=== PATIENT | female | born 1980 | race Caucasian/White ===

== ENCOUNTER 2018-01-14 22:39 | Emergency (ER) | payer OTHER ==
[~2018-01-14] VITALS: Ht 162.6 cm; Wt 64.9 kg
[2018-01-14] MEDS ORDERED: MULTIVITAMINS1 EAC3 PO (22:51)
[2018-01-14] MEDS ORDERED: LEXAPRO10 MG PO (22:51)
--- NOTE | 2018-01-15 20:46 | EKG ---
[facility] [address] [place], [place] [address] Signed Normal sinus rhythm Nonspecific ST abnormality Abnormal ECG No previous ECGs available Confirmed by SUDHIR ROA DO ([id number]) on 01/15/2018 8:46:47 PM Electronically Signed By: SUDHIR ROA DO 01/15/18 2046 PATIENT NAME: LISHA ESCALONA Electrocardiogram DATE OF : 80 PHYSICIAN: SUDHIR ROA DO REPORT #: [id number] REPORT IS CONFIDENTIAL AND NOT TO BE RELEASED WITHOUT AUTHORIZATION
== END 2018-01-15 00:41 | disposition home or self-care (01) ==
LOC: ED 22:39
DX: R07.9 Chest pain, unspecified (principal); F17.200 Nicotine dependence, unspecified, uncomplicated; Z88.0 Allergy status to penicillin; Z79.899 Other long term (current) 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
CPT/HCPCS: 71045; 80053; 84484; 85025; 93005; 93010; 99285

== ENCOUNTER 2018-05-03 14:37 | Emergency (ER) | payer OTHER ==
[~2018-05-03] VITALS: Ht 162.6 cm; Wt 64.9 kg
[~2018-05-03 14:37] MED LIST: LEXAPRO10 MG PO; MULTIVITAMINS1 EAC3 PO
[2018-05-03] MEDS ORDERED: NEURONTIN300 MG PO (14:56)
[2018-05-03] MEDS ORDERED: BACTRIM DS TAB1 EACH PO (17:44)
== END 2018-05-03 17:49 | disposition home or self-care (01) ==
LOC: ED 14:37
DX: F10.20 Alcohol dependence, uncomplicated (principal); N39.0 Urinary tract infection, site not specified; F41.9 Anxiety disorder, unspecified; F43.10 Post-traumatic stress disorder, unspecified; F32.9 Major depressive disorder, single episode, unspecified; F17.200 Nicotine dependence, unspecified, uncomplicated; Z88.0 Allergy status to penicillin; Z79.899 Other long term (current) 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
CPT/HCPCS: 36415; 80053; 80176; 81001; 82550; 84443; 84703; 85025; 87077; 87088; 87186; 99283; G0480

== ENCOUNTER 2018-05-04 19:24 | Emergency (ER) | payer OTHER ==
[~2018-05-04] VITALS: Ht 162.6 cm; Wt 62.6 kg
[~2018-05-04 19:24] MED LIST changes: +BACTRIM DS TAB1 EACH PO; +NEURONTIN300 MG PO
--- OUTSIDE RECORDS SUMMARY | 2018-05-04 19:28 | XMS ---
PreManage Notification: LISHA ESCALONA Security Licensed Clinical Psychologist Events No recent Security Events currently on file CRITERIA MET - [facility] - Visits in 30 Days CARE PROVIDERS FABRIZIO MENDY [facility] PHONE: Unknown FABRIZIO [facility] PHONE: Unknown Anna has no Care Guidelines for this patient. Laurent VISIT COUNT (12 MO.) [address] [place] [address] TOTAL 3 NOTE: Visits indicate total known visits. 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
== END 2018-05-04 20:33 | disposition home or self-care (01) ==
LOC: ED 19:24
DX: F10.229 Alcohol dependence with intoxication, unspecified (principal); F41.9 Anxiety disorder, unspecified; F43.10 Post-traumatic stress disorder, unspecified; F32.9 Major depressive disorder, single episode, unspecified; G62.9 Polyneuropathy, unspecified; F17.200 Nicotine dependence, unspecified, uncomplicated; Z88.0 Allergy status to penicillin; Z79.899 Other long term (current) 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
CPT/HCPCS: 99284

== ENCOUNTER 2018-07-05 04:08 | Emergency (ER) | payer OTHER ==
[~2018-07-05] VITALS: Ht 162.6 cm; Wt 66.7 kg
--- OUTSIDE RECORDS SUMMARY | 2018-07-05 04:10 | XMS ---
PreManage Notification: LISHA ESCALONA Security Software Consultant Events No recent Security Events currently on file CRITERIA MET - Group Notification - [facility] - Has Care Guidelines CARE PROVIDERS [facility] PHONE: Unknown Anna has no Care Guidelines for this patient. Care History Medical/Surgical 05/06/2018 [facility] - CHW CALLED PATIENT- PATIENT VOICEMAIL BOX IS FULL CAN\T\#39;T LEAVE A MESSAGE FOR A CALL BACK- - IF PATIENT IS WILLING TO ACCEPT HELP/DETOX- PLEASE CONTACT RICKEY Bhatt\T\amp; D SERVICES [phone] AND REQUEST AN ASSESSMENT IN THE ED. BEST CONTACT IS ESTHER GIMENEZ E.D. VISIT COUNT (12 MO.) 4 [facility] TOTAL 4 NOTE: Visits indicate total known visits. ED/UCC VISIT TRACKING (12 MO.) 07/05/2018 04:09 [facility] OR TYPE: Emergency COMPLAINT: - MEDICAL CLEARANCE 05/04/2018 19:24 [facility] OR TYPE: Emergency COMPLAINT: - INTOXICATION DIAGNOSES: - Allergy status to penicillin - Alcohol dependence with intoxication, unspecified - Post-traumatic stress disorder, unspecified - Anxiety disorder, unspecified - Other watermaster (current) 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 - Polyneuropathy, unspecified - Alcohol abuse with intoxication, unspecified - Nicotine dependence, unspecified, uncomplicated - Major depressive disorder, single episode, unspecified 05/03/2018 14:37 [facility] OR TYPE: Emergency COMPLAINT: - MEDICAL CLEARANCE DIAGNOSES: - Post-traumatic stress disorder, unspecified - Urinary tract infection, site not specified - Allergy status to penicillin - Anxiety disorder, unspecified - Major depressive disorder, single episode, unspecified - Alcohol dependence, uncomplicated - Nicotine dependence, unspecified, uncomplicated - Other watermaster (current) 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 01/14/2018 22:40 [facility] OR TYPE: Emergency COMPLAINT: - CHEST PAIN DIAGNOSES: - Nicotine dependence, unspecified, uncomplicated - Chest pain, unspecified - Allergy status to penicillin - Other alf (current) 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 INPATIENT VISIT TRACKING (12 MO.) No inpatient visits to display in this time frame [id number]
[2018-07-05] MEDS ORDERED: PROPRANOLOL HCL20 MG PO (04:20)
[2018-07-05] MEDS ORDERED: LEXAPRO20 MG PO (04:20)
[2018-07-08] MEDS ORDERED: MULTIVITAMINS1 EAC8 PO (10:23)
[2018-07-08] MEDS ORDERED: POTASSIUM99 M1 PO (10:23)
[2018-07-08] MEDS ORDERED: VITAMIN B COMP1 EAC1 PO (10:24)
== END 2018-07-05 10:52 | disposition home or self-care (01) ==
LOC: ED 04:08
DX: R45.851 Suicidal ideations (principal); F10.129 Alcohol abuse with intoxication, unspecified; Y90.8 Blood alcohol level of 240 mg/100 ml or more; F41.9 Anxiety disorder, unspecified; F43.10 Post-traumatic stress disorder, unspecified; G62.9 Polyneuropathy, unspecified; F17.200 Nicotine dependence, unspecified, uncomplicated; Z88.0 Allergy status to penicillin; Z79.899 Other long term (current) 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
CPT/HCPCS: 36415; 80053; 80176; 81001; 84443; 84703; 85025; 99285; G0480

== ENCOUNTER 2018-07-11 07:05 | Day surgery (SDC) | payer OTHER ==
[~2018-07-11] VITALS: Ht 162.6 cm; Wt 65.8 kg
--- NOTE | ~2018-07-11 | OR ---
[facility] [address] [place], [place] [address] Draft DATE OF OPERATION: 07/11/2018 SURGEON: Mary Vasquez DO PREOPERATIVE DIAGNOSES: 1. Left adnexal mass. 2. Alcoholism. POSTOPERATIVE DIAGNOSES: 1. Left adnexal mass. 2. Severe pelvic adhesive disease. 3. Likely stage IV endometriosis with significant endometriosis noted. 4. Alcoholism. PROCEDURES PERFORMED: 1. Diagnostic laparoscopy. 2. Pelvic washings. CHIEF UNIT FORESTER: Kong Tracey MD ANESTHESIA: General. ESTIMATED BLOOD LOSS: 10 mL. SPECIMEN: Fluid washings. FINDINGS: Normal external genitalia, cervix, and vagina. On laparoscopy, normal-appearing omentum, bilateral diaphragm, liver, and appendix. No peritoneal studding, omental caking, or other abnormalities associated with malignancy noted. There is no ascites. There is, however, extensive endometriosis. The cul-de-sac was completely obliterated with the rectum scarred high up onto the posterior uterus. The bilateral tubes and ovaries are also scarred to the cul-de-sac, uterus, and sigmoid. Due to adhesions, I was unable to completely evaluate the left tube and ovary. However, the surface is smooth and grossly benign appearing. While I suspect findings on laparoscopy and imaging are most likely secondary to stage IV endometriosis, I cannot completely exclude PATIENT NAME: LISHA ESCALONA OPERATIVE REPORT DATE OF : 80 REPORT #: [id number] PHYSICIAN: MARY VASQUEZ DO PCP: ANNY JEROME MD REPORT IS CONFIDENTIAL AND NOT TO BE RELEASED WITHOUT AUTHORIZATION [facility] [address] [place], [place] [address] Draft malignancy. She will need definitive surgical treatment with Keying Machine Operator Oncology. COMPLICATIONS: None. INDICATIONS: The patent is an unfortunate 38-year-old, G1, P1, white female, who presented to her primary care for secondary amenorrhea. She had not had a period nearly two years since struggling with anxiety, PTSD, and alcoholism. As part of the workup, an ultrasound was performed that demonstrated a normal uterus and endometrial stripe. The right ovary appeared normal. However, the left ovary had an incidentally noted complex mass with the ovary 5.3 x 3.3 x 1.5 cm and within the ovary, a 4.5 x 3.9 x 3.1 cm complex adnexal mass with at least three mural nodules along the cyst wall with vascularity noted. These mural nodules are up to 14 mm in size. The patient denies bloating, early satiety, family history of breast or ovarian cancer. She denies a history of dysmenorrhea or dyspareunia. She does have significant alcoholism, which was kindly helped manage by anesthesia preoperatively. The patient was consented for laparoscopic LSO with pelvic washings after careful discussion of risks and benefits for surgical treatment of complex adnexal masses. She had declined referral to Keying Machine Operator Oncology or screening with risks stratification with a test like ova one. DESCRIPTION OF PROCEDURE: The patient was taken the operating room where a time-out was performed to confirm correct patient and correct procedure. General anesthesia was adequately established. Patient was prepped and draped in dorsal lithotomy position with her feet in Yellofin stirrups. ICPs were on running. Patient received Ancef 2 g preoperatively per skip protocol and also received heparin preoperatively for a family history of perioperative pulmonary embolism. A weighted speculum was placed in the vagina and the anterior lip of the cervix was grasped with a single-tooth tenaculum. Patient incidentally noted to have menstrual bleeding at this time. The cervix was gently dilated using Hegar dilators and a DoubleVerifylNetcontinuum uterine manipulator was placed. A Manzano catheter was inserted and the surgeon's gloves were changed and attention was turned to the abdomen. The base of the umbilicus was infiltrated with 0.25% Marcaine with epinephrine and an approximately 5 cm infraumbilical curvilinear incision was made. The fascia was grasped, elevated, and incised sharply with Metzenbaum scissors. The fascial edges were tagged with #0 Vicryl and the peritoneum was entered bluntly. A Akua port was then placed and pneumoperitoneum was easily established. A 5 mm assist ports were placed in the right lower quadrant and left lower quadrant under direct visualization and survey of the abdomen and pelvis was performed. Detailed examination of bilateral diaphragm, liver capsule, omentum, and appendix were performed that showed no abnormalities, peritoneal studding, or other concern for malignancy. The pelvis was evaluated and the cul-de-sac appeared to be completely obliterated. Decision was made to perform pelvic washings at PATIENT NAME: LISHA ESCALONA OPERATIVE REPORT DATE OF : 80 REPORT #: [id number] PHYSICIAN: MARY VASQUEZ DO PCP: ANNY JEROME MD REPORT IS CONFIDENTIAL AND NOT TO BE RELEASED WITHOUT AUTHORIZATION [address] [address] Draft this time. The abdomen and pelvis were irrigated with saline and the patient was placed into reverse Trendelenburg position, at which time the washings were removed approximately 100 mL and sent for further evaluation. The Trendelenburg position was then reestablished and further evaluation of the pelvis was performed. The left ovary and tube are adherent posteriorly to the cul-de-sac and the uterus and the sigmoid. The sigmoid is densely adherent to the posterior wall of the uterus as well as the bilateral adnexa. The right ovary again is scarred into the cul-de-sac. There were dense endometrial lesions throughout the pelvis at the right round ligament, fallopian tube, ovary, etc. After careful evaluation, it was determined that the left adnexum would not be able to be excised without risking either spillage or conversion to full hysterectomy. Again with the appearance of stage IV endometriosis and complex adnexal mass, we felt that the patient would be best served by definitive surgical treatment by advanced laparoscopy with a Keying Machine Operator Oncologist. The pneumoperitoneum was then reduced. The trocars were removed. Fascia at the umbilicus was repaired with #0 Vicryl in a running nonlocked manner and the trocar sites repaired with 4-0 Vicryl. The Hulka was removed. The cervix was found to be hemostatic and the patient was taken to PACU in good and stable condition. Sponge, needle, and instrument counts were correct x2 at the end the procedure. Dr. Tracey was present and participated in all portions of the procedure. DO MAYCOL Heller/NERISSA /[id number] Copies: ~ PATIENT NAME: LISHA ESCALONA OPERATIVE REPORT DATE OF : 80 REPORT #: [id number] PHYSICIAN: MARY VASQUEZ DO PCP: ANNY JEROME MD REPORT IS CONFIDENTIAL AND NOT TO BE RELEASED WITHOUT AUTHORIZATION
[~2018-07-11 07:05] MED LIST changes: +LEXAPRO20 MG PO; +MULTIVITAMINS1 EAC8 PO; +POTASSIUM99 M1 PO; +PROPRANOLOL HCL20 MG PO; +VITAMIN B COMP1 EAC1 PO
--- NOTE | 2018-07-11 10:43 | NUR ---
07/11/18 1043 María Elena Jin 1029-PATIENT ARRIVED TO PACU ON 10L MASK ORAL AIRWAY IN PLACE. JAW IS TIGHT. SR. 3 LAP SITES TO ABDOMEN SMALL AMT OF SHADOWING. DELMY PAD IN PLACE. PATIENT OPENS EYES TO VERBAL STIMULI. EYELIDS APPEAR A LITTLE SWOLLEN. PATIENT DROOLING FROM SIDE OF MOUTH SUCTIONED SMALL AMT OF BLOODY SECRETIONS. 1037-PATIENT OPENING EYES LIFTING LEFT HAND ORAL AIRWAY REMOVED. ENCOURAGED COUGHING AND DEEP BREATHING. PATIENT ABLE TO COUGH. SMALL AMT OF BLEEDING ON TONGUE. PATIENT DOZES BACK TO SLEEP. 0N 10L MASK. 1042-PATIENT SLEEPING AROUSES TO VERBAL STIMULI WHEN ASKED IF COMFORTABLE SAYS "YES" DOZES BACK TO SLEEP. 6L MASK 100%
--- NOTE | 2018-07-11 11:25 | NUR ---
PT RETURNS TO DS ROOM 3 FROM PACU ON 2 L VIA NC. SATS 100%. SURGICAL DRESSING, BANDAID ON RIGHT LAP SITE SATURATED. OTHERS C/D/I. DELMY PAD IN PLACE WITH SMALL AMOUNT OF DRAINAGE. VSS. PT REQUESTING TO USE BATHROOM. PT SALINE LOCKED AND AMBULATES TO RESTROOM. PT VOIDS 100 ML BLOOD TINGED URINE. GOLF BALL SIZED CLOT NOTED IN HAT. PT RETURNS TO BED. FRESH WATER AND CRACKERS PROVIDED. PT DENIES NAUSEA/PAIN. CALL LIGHT WITHIN REACH
--- NOTE | 2018-07-11 12:09 | NUR ---
telephone call to dr. schofield about clot and pt status. no new orders given. to see pt prior to discharge
--- NOTE | 2018-07-11 12:13 | NUR ---
DR. ESQUIVEL TO SEE PT. PT OKAY TO DC WHEN READY.
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
== END 2018-07-11 12:40 | disposition home or self-care (01) ==
LOC: OPS 07:05 → DS 07:05 → OPS 09:30 → EDSTATUS 11:30 → OPS 11:30
PROVIDERS: Obstetrics & Gynecology
PROC: 0WJJ4ZZ Inspection of Pelvic Cavity, Percutaneous Endoscopic Approach (ICD-10-PCS; principal; 2018-07-11 09:30)
DX: N83.8 Other noninflammatory disorders of ovary, fallopian tube and broad ligament (principal); N73.6 Female pelvic peritoneal adhesions (postinfective); F10.20 Alcohol dependence, uncomplicated; F43.10 Post-traumatic stress disorder, unspecified; F32.9 Major depressive disorder, single episode, unspecified; F41.9 Anxiety disorder, unspecified; F17.210 Nicotine dependence, cigarettes, uncomplicated; Z88.0 Allergy status to penicillin; Z79.899 Other long term (current) 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
CPT/HCPCS: 00840; J0330; J0690; J1100; J1644; J1885; J2250; J2405; J2704; J2765; J3010; J7120

== ENCOUNTER 2018-08-10 15:56 | Emergency (ER) | payer OTHER ==
[~2018-08-10] VITALS: Ht 162.6 cm; Wt 69.4 kg
--- OUTSIDE RECORDS SUMMARY | 2018-08-10 16:00 | XMS ---
PreManage Notification: LISHA ESCALONA Security Circulation Clerk Events No recent Security Events currently on file CRITERIA MET - [facility] - Has Care Guidelines CARE PROVIDERS ANNY JEROME Student in an Organized Health Care 07/08/2018-Current Education/Training Program PHONE: [phone] [facility] Primary Care [facility] PHONE: Unknown [facility] PHONE: Unknown Anna has no Care Guidelines for this patient. Care History Medical/Surgical 07/08/2018 [facility] - Patient is currently established with [facility]. If patient is seen in the ED during business hours. Please contact CHWs at [facility]. Care Recommendation: This patient has had 5 or more Emergency Department visits in the last 12 months.\T\nbsp; Patient requires education on the scope and purpose of the ED as an acute care provider not a Primary Care Provider and should not be utilized for chronic conditions.\T\nbsp; These are guidelines and the provider should exercise clinical judgment when providing care. 05/06/2018 [facility] - [facility]W CALLED PATIENT- PATIENT VOICEMAIL BOX IS FULL CAN\T\#39;T LEAVE A MESSAGE FOR A CALL BACK- - IF PATIENT IS WILLING TO ACCEPT HELP/DETOX- PLEASE CONTACT RICKEY Bhatt\T\amp; D SERVICES [phone] AND REQUEST AN ASSESSMENT IN THE ED. BEST CONTACT IS ESTHER GIMENEZ E.D. VISIT COUNT (12 MO.) 5 [facility]. TOTAL 5 NOTE: Visits indicate total known visits. ED/UCC VISIT TRACKING (12 MO.) 08/10/2018 15:57 [facility] Rowan OR TYPE: Emergency COMPLAINT: - SUICIDAL THOUGHTS 07/05/2018 04:09 [facility] Rowan OR TYPE: Emergency COMPLAINT: - MEDICAL CLEARANCE DIAGNOSES: - Allergy status to penicillin - Blood alcohol level of 240 mg/100 ml or more - Suicidal ideations - Nicotine dependence, unspecified, uncomplicated - Post-traumatic stress disorder, unspecified - Other penitentiary (current) 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 - Alcohol abuse with intoxication, unspecified - Polyneuropathy, unspecified - Anxiety disorder, unspecified 05/04/2018 19:24 [facility] Rowan OR TYPE: Emergency COMPLAINT: - INTOXICATION DIAGNOSES: - Allergy status to penicillin - Alcohol dependence with intoxication, unspecified - Post-traumatic stress disorder, unspecified - Anxiety disorder, unspecified - Other penitentiary (current) 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 - Polyneuropathy, unspecified - [...] - Nicotine dependence, unspecified, uncomplicated - Other remote computer terminal operator (current) 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 01/14/2018 22:40 [facility] Rowan OR TYPE: Emergency COMPLAINT: - CHEST PAIN DIAGNOSES: - Nicotine dependence, unspecified, uncomplicated - Chest pain, unspecified - Allergy status to penicillin - Other remote computer terminal operator (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
[2018-08-10] MEDS ORDERED: FISH OIL 1,0001 EAC2 NG (16:17)
[2018-08-10] MEDS ORDERED: CHLORDIAZEPOXID25 MG PO (19:33)
== END 2018-08-10 19:49 | disposition home or self-care (01) ==
LOC: ED 15:56
DX: F32.9 Major depressive disorder, single episode, unspecified (principal); F10.20 Alcohol dependence, uncomplicated; Y90.8 Blood alcohol level of 240 mg/100 ml or more; F41.9 Anxiety disorder, unspecified; F43.10 Post-traumatic stress disorder, unspecified; F17.200 Nicotine dependence, unspecified, uncomplicated; Z88.0 Allergy status to penicillin; Z79.899 Other long term (current) 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
CPT/HCPCS: 80053; 80176; 81001; 84443; 84703; 85025; 96374; 96375; 99284-25; G0480; J2405; J3411; J7030

== ENCOUNTER 2018-08-25 13:19 | Emergency (ER) | payer OTHER ==
[~2018-08-25] VITALS: Ht 162.6 cm; Wt 69.4 kg
[~2018-08-25 13:19] MED LIST changes: +CHLORDIAZEPOXID25 MG PO; +FISH OIL 1,0001 EAC2 NG
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
== END 2018-08-25 16:32 | disposition home or self-care (01) ==
LOC: ED 13:19
DX: S00.83XA Contusion of other part of head, initial encounter (principal); F10.129 Alcohol abuse with intoxication, unspecified; F32.9 Major depressive disorder, single episode, unspecified; F41.9 Anxiety disorder, unspecified; F43.10 Post-traumatic stress disorder, unspecified; G62.9 Polyneuropathy, unspecified; F17.200 Nicotine dependence, unspecified, uncomplicated; Z88.0 Allergy status to penicillin; Z79.899 Other long term (current) 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; Y04.0XXA Assault by unarmed brawl or fight, initial encounter
CPT/HCPCS: 70450; 72125; 80053; 81001; 84703; 85025; 96365; 96366; 99284-25; G0480; J3411; J7030

== ENCOUNTER 2018-08-28 15:33 | Emergency (ER) | payer OTHER ==
[~2018-08-28] VITALS: Ht 162.6 cm; Wt 69.4 kg
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
== END 2018-08-29 12:16 | disposition home or self-care (01) ==
LOC: ED 15:33
DX: F10.129 Alcohol abuse with intoxication, unspecified (principal); Y90.8 Blood alcohol level of 240 mg/100 ml or more; R45.851 Suicidal ideations; F41.9 Anxiety disorder, unspecified; F43.10 Post-traumatic stress disorder, unspecified; F32.9 Major depressive disorder, single episode, unspecified; F17.200 Nicotine dependence, unspecified, uncomplicated; Z88.0 Allergy status to penicillin; Z79.899 Other long term (current) 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
CPT/HCPCS: 36415; 80053; 80176; 81001; 84443; 84703; 85025; 99284; G0480

== ENCOUNTER 2018-09-23 09:25 | Inpatient (IN) | payer OTHER ==
[~2018-09-23] VITALS: Ht 162.6 cm; Wt 66.8 kg
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
[2018-09-23] MEDS ORDERED: WELLBUTRIN XL300 MG PO (09:38)
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
--- NOTE | 2018-09-23 14:29 | NUR ---
PT CONTIOUES TO BE SLEEPING AT THIS TIME.
--- NOTE | 2018-09-23 15:13 | NUR ---
PT AWAKEN WHEN SPOKEN TOO, PT ABLE TO TAKE PO MEDS AT THIS TIME. IV LOPRESSOR HELD DUE TO OUT OF BP RANGE. PT BACK TO SLEEP BEFORE WRITE FINISHED NOTE.
--- NOTE | 2018-09-23 15:50 | NUR ---
LAB HERE TO OBTAIN SAMPLE AT THIS TIME.
--- NOTE | 2018-09-23 16:26 | NUR ---
PT IS MORE ALERT AT THIS TIME. "I DO NT WANT ANY MORE PHENERGAN, WHY WOULD YOU WNAT THIS DRUG IF ALL YOU DO IS SLEEP" "I JUST CANT STAY AWAKE". PT GIVEN SOME BROTH TO TRY AND HAS ICE WATER AT THE BEDSIDE. PT DENIES THE NEED TO VOID AT THIS TIME. PT HAS CELL PHONE AND HER GLASSES ARE AT THE BEDSIDE.
--- NOTE | 2018-09-23 16:44 | NUR ---
PT CURRENTLY SITTING UP IN THE BED WATCHING TV AND TALKING ON HER CELL PHONE AT TIMES. PT WAS UP TO THE BEDSIDE COMMODE AND VOIDED AND THEN BACK TO BED. PT HAS SOME NOTICABLE TREMORS IN HANDS,LEGS, AND BODY. PT IS MORE COOPERATIVE WITH HOUSPITAL ROUTINE AT THIS TIME. PT IS CURRENTLY DRINKING SOME BROTH.
--- NOTE | 2018-09-23 16:58 | NUR ---
PT ASKED FOR ATIVAN AT THIS TIME. 1MG PO GIVEN. "I NEED A BEER OR A ATIVAN PLEASE." PT CIWA SCORE AT 16:00 WAS 3. BUT PT IS AWAKE AND WATCHING TV NOW. WILL CONTIOUE TO MONITOR. PT WAS ALSO GIVEN SOME CLEAR LIQUIDS FOR DINNER.
--- NOTE | 2018-09-23 17:24 | NUR ---
DR MARTIN NOTIFIED OF LAB VALUES AT THIS TIME. ESR 44, NA 145. NO NEW ORDERS AT THIS TIME.
--- NOTE | 2018-09-23 18:57 | NUR ---
PT REQUEST TO HAVE HER DIET INCREASED AT THIS TIME. DR MARTIN NOTIFIED AT THIS TIME. DR MARTIN WILL COME AND TALK WITH PT AT THIS TIME.
--- NOTE | 2018-09-23 19:17 | NUR ---
PT GIVEN MORE JELLO AND BROTH AT THIS TIME. PT IS COOPERATIVE WITH HOSPITAL ROUTINE AT THIS TIME.
--- NOTE | 2018-09-23 20:52 | NUR ---
PT OCC TALKS IN SLEEP, STATES THIS IS NORMAL FOR HER. C/O LOWER ABD PAIN 10/07 AND NOTED THAT WAS FREQ MOVING LEGS WHICH PT STATES SHE IS DOING DUE TO PAIN. WAS GIVEN 0.5MG DILAUDID IV AT 1999, PT STATES THIS WORKED WELL FOR HER AND HAS BEEN SLEEPING OFF AND ON SINCE. STATES TREMORS ARE NORMAL FOR HER AND THAT THEY RUN IN THE FAMILY. PT IS VERY BAY ABOUT POTENTIAL FOR DELERIUM TREMONS AND WILL ASK FOR ATIVAN IF NEEDED. PT IS CONCERNED ABOUT CONT HER WELLBUTRIN AND LEXEPRO, WHICH SHE NORMALLY TAKES AT NIGHT. DR MARTIN CALLED ABOUT THIS. PT UP TO BSC TO VOID, STATES SHE FEELS WOBBLY BUT OTHERWISE THOMPSON WELL. CONT TO TAKE JELLO AND WATER.
--- NOTE | 2018-09-23 21:16 | NUR ---
PT AWAKENED FOR MEDS. REQUESTING ATIVAN STARTING TO FEEL SHAKY, GIVEN 1MG PO.
--- NOTE | 2018-09-23 22:47 | NUR ---
AWAKENED FOR PROPRANALOL, GIVEN LATE HAD ALREADY GIVEN LOPRESSOR IV PRIOR TO IT BEING ORDERED. PT CONT TO TALK IN SLEEP.
--- NOTE | 2018-09-23 23:45 | NUR ---
AWAKENED FOR ASSESSMENT STATES ABD PAIN IS TOLERABLE AT THIS TIME. HAS BEEN SLEEPING OFF AND ON. STATES FEELS GASSY.
--- NOTE | 2018-09-24 01:12 | NUR ---
IN TO HELP PT TO BSC AND BACK TO BED. EXTREMELY SHAKY AND REQUESTS ATIVAN. ALSO APPEARS TO BE HALLUCINATING- PT STATES "DOES HE HAVE TO BE IN HERE?, THAT NURSE SPENCER IN THE CORNER, DOES HE HAVE TO BE IN HERE?". REORIENTED, EXPLAINED THAT THERE IS NO OTHER PERSON IN THE ROOM. PT STATES "IM NOT OKAY RIGHT NOW". 1MG PO ATIVAN GIVEN. PT GIVEN FRESH ICE WATER, DENIES FURTHER NEEDS.
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
--- NOTE | 2018-09-24 04:20 | NUR ---
DR MARTIN CALLED RE PT CONT RESTLESSNESS AND NOW PICKING AT COVERS ET. WILL GIVEM 1MG ATIVAN IV.
--- NOTE | 2018-09-24 05:01 | NUR ---
RESTING BETTER SINCE IV ATIVAN WAS GIVEN.
--- NOTE | 2018-09-24 06:10 | NUR ---
LAB DRAWN, PT JUMPED SLIGHTLY THEN BACK TO SLEEP.
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
--- NOTE | 2018-09-24 09:56 | NUR ---
PATIENT GIVEN SECOND DOSE OF GASTROGRAFIN AT 0935. PATIENT TOLERATED THIS WELL. PT ALSO GIVEN LIBRIUM 50 MG AT THIS TIME FOR HER ETOH W/D SYMPTOMS. HR IN THE 80s CURRENTLY.
--- NOTE | 2018-09-24 10:53 | NUR ---
PATIENT TAKEN DOWN TO CT VIA WHEELCHAIR AND CT ABDOMEN PERFORMED. PT TOLERATED THIS WELL. PT ABLE TO AMBULATE INTO WHEELCHAIR, AND INTO BATHROOM WHEN SHE ARRIVES BACK TO ROOM. PT NOW ASKING FOR JELLO. PT STATES HER DEEP, DULL ABDOMINAL PAIN IS A 3 OUT OF 10. CONTINUE TO MONITOR.
--- NOTE | 2018-09-24 11:02 | NUR ---
PATIENT WONDERING ABOUT HER CELL PHONE AT THIS TIME. NOTED THAT PATIENT HAS SOME VALUABLES LOCKED IN THE SAFE. DR. MARTIN UPDATED ON HOW PATIENT IS DOING WELL HER CT BEING DONE. WAITING UNTIL RESULTS TO ALLOW PATIENT TO HAVE MORE FOOD.
--- NOTE | 2018-09-24 11:15 | NUR ---
PATIENT'S CELL PHONE WAS FOUND IN HER ROOM, UNDER HER BED.
--- NOTE | 2018-09-24 12:30 | NUR ---
AFTER CT RESULTS WERE AVAILABLE, DR. MARTIN NOTIFIED AND UPDATED. PT ALLOWED TO ADVANCE DIET AND SEE HOW SHE TOLERATES THIS. IF PATIENT TOLERATES WELL, THEN SHE WILL POTENTIALLY BE D/C HOME. PATIENT IS NOT WANTING TO DETOX FROM ETOH AT THIS TIME. PATIENT IS FULLY PLANNING ON GOING HOME AND IMMEDIATELY GOING BACK TO DRINKING. DR. MARTIN MADE AWARE OF THIS AND PLANS ON COMING BACK TO SEE PATIENT.
--- NOTE | 2018-09-24 13:00 | NUR ---
STOOL SAMPLE SENT TO LAB. PT NOTED TO HAVE LIQUID BROWN DIARRHEA.
--- NOTE | 2018-09-24 14:32 | NUR ---
PATIENT TO BE D/C HOME. PATIENT GIVEN DISCHARGE INSTRUCTIONS AND IS GOING TO FOLLOW UP WITH DR. ESQUIVEL ON SUNDAY. PATIENT DRANK HER BEER SHE WAS ALLOWED TO HAVE WITH LUNCH. PT IS ALERT, ORIENTED, AND STABLE ON FEET. PT STATES PAIN IS TOLERABLE, AND RATES IT A 3/10 IN HER ABDOMEN.
--- NOTE | 2018-09-24 19:13 | EKG ---
[facility] [address] [place], [place] [address] Signed Normal sinus rhythm Prolonged QT Abnormal ECG When compared with ECG of 08-JUL-2018 10:40, No significant change was found Confirmed by MARLEEN MARTIN MD ([id number]) on 09/24/2018 7:13:04 PM Electronically Signed By: MARLEEN MARTIN MD 09/24/18 191 PATIENT NAME: LISHA ESCALONA Electrocardiogram DATE OF : 80 PHYSICIAN: MARLEEN MARTIN MD REPORT #: [id number] REPORT IS CONFIDENTIAL AND NOT TO BE RELEASED WITHOUT AUTHORIZATION
== END 2018-09-24 14:38 | disposition home or self-care (01) | DRG 371 ==
LOC: ED 09:25 → CCU 13:04
PROVIDERS: ADMIT Internal Medicine
DX: K65.1 Peritoneal abscess (principal); G93.41 Metabolic encephalopathy; F10.239 Alcohol dependence with withdrawal, unspecified; R19.7 Diarrhea, unspecified; G89.18 Other acute postprocedural pain; G62.9 Polyneuropathy, unspecified; E86.0 Dehydration; F43.10 Post-traumatic stress disorder, unspecified; F32.9 Major depressive disorder, single episode, unspecified; T42.6X5A Adverse effect of other antiepileptic and sedative-hypnotic drugs, initial encounter; F41.9 Anxiety disorder, unspecified; F17.210 Nicotine dependence, cigarettes, uncomplicated; Z90.710 Acquired absence of both cervix and uterus; Z79.899 Other long term (current) 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; Z88.0 Allergy status to penicillin
CPT/HCPCS: 36415; 70450; 74177; 80048; 80053; 81001; 83605; 83690; 83735; 85025; 85651; 87493; 93005; 93010; 96361; 96365; 96375; 99285-25; C9113; G0480; J1170; J2060; J2550; J3411; J3480; J7030; J7120; Q9967

== ENCOUNTER 2018-10-01 18:52 | Emergency (ER) | payer OTHER ==
[~2018-10-01] VITALS: Ht 162.6 cm; Wt 68.2 kg
[~2018-10-01 18:52] MED LIST changes: +WELLBUTRIN XL300 MG PO
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
[2018-10-01] MEDS ORDERED: BACTRIM DS TAB1 EACH PO (23:19)
== END 2018-10-02 00:20 | disposition home or self-care (01) ==
LOC: ED 18:52
DX: G89.18 Other acute postprocedural pain (principal); R10.9 Unspecified abdominal pain; N39.0 Urinary tract infection, site not specified; F10.129 Alcohol abuse with intoxication, unspecified; F41.9 Anxiety disorder, unspecified; F32.9 Major depressive disorder, single episode, unspecified; F17.200 Nicotine dependence, unspecified, uncomplicated; Z90.710 Acquired absence of both cervix and uterus; Z88.0 Allergy status to penicillin; Z79.899 Other long term (current) 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
CPT/HCPCS: 36415; 74177; 80053; 81001; 83690; 85025; 96374; 99284-25; G0480; J3411; J7030; Q9967

== ENCOUNTER 2018-10-03 18:11 | Emergency (ER) | payer OTHER ==
[~2018-10-03] VITALS: Ht 162.6 cm; Wt 71.4 kg
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
== END 2018-10-03 22:10 | disposition home or self-care (01) ==
LOC: ED 18:11
DX: N99.820 Postprocedural hemorrhage of a genitourinary system organ or structure following a genitourinary system procedure (principal); N93.9 Abnormal uterine and vaginal bleeding, unspecified; N39.0 Urinary tract infection, site not specified; F41.9 Anxiety disorder, unspecified; F32.9 Major depressive disorder, single episode, unspecified; F17.200 Nicotine dependence, unspecified, uncomplicated; Z88.0 Allergy status to penicillin; G62.9 Polyneuropathy, unspecified; Z79.899 Other long term (current) 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; Z90.710 Acquired absence of both cervix and uterus
CPT/HCPCS: 81001; 85025; 96374; 96375; 99283-25; J0744; J1885

== ENCOUNTER 2018-10-05 18:50 | Emergency (ER) | payer OTHER ==
[~2018-10-05] VITALS: Ht 162.6 cm; Wt 71.4 kg
--- OUTSIDE RECORDS SUMMARY | 2018-10-05 18:54 | XMS ---
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 PHONE: Unknown Guidelines Source: [employer] Paige Becerril Guidelines Date: 08/26/2018 Care Coordination: Currently engaged in mental health services with [employer].\T\nbsp; Please contact [employer] with mental health concerns.\T\nbsp; [place]/Prasanna Clements: \T\nbsp; [phone]\T\nbsp; Shayy:\T\nbsp; [phone]. Care History Medical/Surgical 07/08/2018 [facility] - PATIENT HAS AN APT WITH DR JEROME ON 10/15/18. - Patient is currently established with [facility]. If patient is seen in the ED during business hours. Please contact CHWs at [facility]. Care Recommendation: This patient has had 5 or more Emergency Department visits in the last 12 months.\T\nbsp; Patient requires education on the scope and purpose of the ED as an acute care provider not a Primary Care Provider and should not be utilized for chronic conditions.\T\nbsp; These are guidelines and the provider should exercise clinical judgment when providing care. 05/06/2018 [facility] - CHW CALLED PATIENT- PATIENT VOICEMAIL BOX IS FULL CAN\T\#39;T LEAVE A MESSAGE FOR A CALL BACK- - IF PATIENT IS WILLING TO ACCEPT HELP/DETOX- [facility]; D [facility] [phone] AND REQUEST AN ASSESSMENT IN THE ED. BEST CONTACT IS ESTHER GIMENEZ E.D. VISIT COUNT (12 MO.) 11 [facility]. TOTAL 11 NOTE: Visits indicate total known visits. 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 - Urinary tract infection, site not specified - Major depressive disorder, single episode, unspecified - Other acute postprocedural pain - Low back pain - Anxiety disorder, unspecified - Nicotine dependence, unspecified, uncomplicated - Alcohol abuse with intoxication, unspecified - Allergy status to penicillin - Unspecified abdominal pain - Acquired absence of both cervix and uterus 09/23/2018 09:26 [facility] [place] TYPE: Emergency COMPLAINT: - POST OP PROB/ABD PAIN 08/28/2018 15:33 [facility] [place] TYPE: Emergency COMPLAINT: - SUICIDAL THOUGHTS DIAGNOSES: - Nicotine dependence, unspecified, uncomplicated - Major depressive disorder, single episode, unspecified - Post-traumatic stress disorder, unspecified - Other chcf (current) 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 - Blood alcohol level [...] penicillin - Anxiety disorder, unspecified - Other chcf (current) 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 - Headache - Major [...] more - Anxiety disorder, unspecified - Other ferry terminal agent (current) 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 07/05/2018 04:09 [facility] [place] TYPE: Emergency COMPLAINT: - MEDICAL CLEARANCE DIAGNOSES: - Allergy status to penicillin - Blood alcohol level of 240 mg/100 ml or more - Suicidal ideations - Nicotine dependence, unspecified, uncomplicated - Post-traumatic stress disorder, unspecified - Other chcf (current) 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 - Alcohol abuse with intoxication, unspecified - Polyneuropathy, unspecified - Anxiety disorder, unspecified 05/04/2018 19:24 [facility] [place] TYPE: Emergency COMPLAINT: - INTOXICATION DIAGNOSES: - Allergy status to penicillin - Alcohol dependence with intoxication, unspecified - Post-traumatic stress disorder, unspecified - Anxiety disorder, unspecified - Other chcf (current) 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 - Polyneuropathy, unspecified - [...] - Nicotine dependence, unspecified, uncomplicated - Other chcf (current) 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 01/14/2018 22:40 [facility] [place] TYPE: Emergency COMPLAINT: - CHEST PAIN DIAGNOSES: - Nicotine dependence, unspecified, uncomplicated - Chest pain, unspecified - Allergy status to penicillin - Other ferry terminal agent (current) 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 INPATIENT VISIT TRACKING (12 [...] - Diarrhea, unspecified - Dehydration - Other ferry terminal agent (current) 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 - Post-traumatic stress disorder, unspecified [email or web address]
[2018-10-05] MEDS ORDERED: NORCO 5-325 TA1 EACH (19:00)
== END 2018-10-05 20:34 | disposition home or self-care (01) ==
LOC: ED 18:50
DX: G89.29 Other chronic pain (principal); R10.2 Pelvic and perineal pain; F10.10 Alcohol abuse, uncomplicated; F17.200 Nicotine dependence, unspecified, uncomplicated; F32.9 Major depressive disorder, single episode, unspecified; F41.9 Anxiety disorder, unspecified; Z88.0 Allergy status to penicillin; Z90.710 Acquired absence of both cervix and uterus; Z79.899 Other long term (current) 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
CPT/HCPCS: 80053; 81001; 85025; 87088; 99283

== ENCOUNTER 2018-10-06 15:05 | Emergency (ER) | payer OTHER ==
[~2018-10-06] VITALS: Ht 162.6 cm; Wt 71.4 kg
[~2018-10-06 15:05] MED LIST changes: +NORCO 5-325 TA1 EACH
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
== END 2018-10-06 16:55 | disposition home or self-care (01) ==
LOC: ED 15:05
DX: R10.2 Pelvic and perineal pain (principal); N13.30 Unspecified hydronephrosis; F10.20 Alcohol dependence, uncomplicated; F41.9 Anxiety disorder, unspecified; F32.9 Major depressive disorder, single episode, unspecified; G62.9 Polyneuropathy, unspecified; F17.200 Nicotine dependence, unspecified, uncomplicated; Z90.710 Acquired absence of both cervix and uterus; Z88.0 Allergy status to penicillin; Z79.899 Other long term (current) 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
CPT/HCPCS: 99284

== ENCOUNTER 2018-10-15 14:21 | Emergency (ER) | payer OTHER ==
[~2018-10-15] VITALS: Ht 162.6 cm; Wt 67.3 kg
--- OUTSIDE RECORDS SUMMARY | 2018-10-15 14:24 | XMS ---
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 IRIS CREATED. CRITERIA MET - Group Notification - 6 ED Visits in 6 Months - [facility] - Has Care Guidelines - [facility] - 2 Visits in 30 Days CARE PROVIDERS ANNY JEROME Student in an Organized Health Care 07/08/2018-Current Education/Training Program PHONE: [phone] KATHYA ROGERS Primary [facility] PHONE: Unknown [facility]RIZIO [facility] PHONE: Unknown Guidelines Source: [facility] Guidelines Date: 08/26/2018 Care Coordination: Currently engaged in mental health services with [facility].\T\nbsp; Please contact [facility] [facility] with mental health concerns.\T\nbsp; [place]/Prasanna Clements: \T\nbsp; [phone]\T\nbsp; Kathya:\T\nbsp; [phone]. Care History Medical/Surgical 07/08/2018 [facility] - PATIENT HAS AN APT WITH DR JEROME ON 10/15/18. - Patient is currently established with [facility]. If patient is seen in the ED during business hours. Please contact CHWs at [facility]. Care Recommendation: This patient has had 5 or more Emergency Department visits in the last 12 months.\T\nbsp; Patient requires education on the scope and purpose of the ED as an acute care provider not a Primary Care Provider and should not be utilized for chronic conditions.\T\nbsp; These are guidelines and the provider should exercise clinical judgment when providing care. 05/06/2018 [facility] - CHW CALLED PATIENT- PATIENT VOICEMAIL BOX IS FULL CAN\T\#39;T LEAVE A MESSAGE FOR A CALL BACK- - IF PATIENT IS WILLING TO ACCEPT HELP/DETOX- PLEASE CONTACT [facility]\T\amp; D SERVICES [phone] AND REQUEST AN ASSESSMENT IN THE ED. BEST CONTACT IS ESTHER GIMENEZ E.D. VISIT COUNT (12 [address] 13 [facility] TOTAL 13 NOTE: Visits indicate total known visits. ED/UCC VISIT TRACKING (12 MO.) 10/15/2018 14:21 [facility] [place] TYPE: Emergency COMPLAINT: - MEDICAL CLEARANCE 10/06/2018 15:06 [facility] [place] TYPE: Emergency COMPLAINT: - PAIN DIAGNOSES: - Anxiety disorder, unspecified - Acquired absence of both cervix and uterus - Pelvic and perineal pain - Allergy status to penicillin - Unspecified hydronephrosis - Major depressive disorder, single episode, unspecified - Other terminal system operator (current) 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 - Nicotine dependence, unspecified, uncomplicated - Alcohol dependence, uncomplicated - Polyneuropathy, unspecified 10/05/2018 18:51 [facility] [place] TYPE: Emergency COMPLAINT: - BACK PAIN/POST OP PROBLEM DIAGNOSES: - Other chronic pain - Alcohol abuse, uncomplicated - Anxiety disorder, unspecified - Major depressive disorder, single episode, unspecified - Pelvic and perineal pain - Other terminal system operator (current) 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 - Allergy status to penicillin - Acquired absence of both cervix and uterus - Nicotine dependence, unspecified, uncomplicated 10/03/2018 18:11 [facility] [place] TYPE: Emergency COMPLAINT: - PAIN DIAGNOSES: - Allergy status to penicillin - Major depressive disorder, single episode, unspecified - Abnormal uterine and vaginal bleeding, unspecified - Other acute postprocedural pain - Anxiety disorder, unspecified - Urinary tract infection, site not specified - Other senior care (current) 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 - Polyneuropathy, unspecified - Postprocedural hemorrhage of a genitourinary system organ or structure following a genitourinary system procedure - Acquired absence of both cervix and uterus - Nicotine dependence, unspecified, uncomplicated 10/01/2018 18:52 [facility] [place] TYPE: Emergency [...] both cervix and uterus 09/23/2018 09:26 [facility] [place] TYPE: Emergency COMPLAINT: - POST OP PROB/ABD PAIN 08/28/2018 15:33 [facility] [place] TYPE: Emergency COMPLAINT: - SUICIDAL THOUGHTS DIAGNOSES: - Nicotine dependence, unspecified, uncomplicated - Major depressive disorder, single episode, unspecified - Post-traumatic stress disorder, unspecified - Other terminal system operator (current) 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 - Blood alcohol level [...] penicillin - Anxiety disorder, unspecified - Other terminal system operator (current) 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 - Headache - Major [...] senior care (current) 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 07/05/2018 04:09 [facility] [...] unspecified - Anxiety disorder, unspecified - Other terminal system operator (current) 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 - Polyneuropathy, unspecified - [...] - Nicotine dependence, unspecified, uncomplicated - Other terminal system operator (current) 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 01/14/2018 22:40 [facility] [...] - Diarrhea, unspecified - Dehydration - Other senior care (current) 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 - Post-traumatic stress disorder, unspecified [email or web address]
== END 2018-10-16 11:10 | disposition home or self-care (01) ==
LOC: ED 14:21
DX: F32.9 Major depressive disorder, single episode, unspecified (principal); F10.129 Alcohol abuse with intoxication, unspecified; Y90.8 Blood alcohol level of 240 mg/100 ml or more; F41.9 Anxiety disorder, unspecified; F43.10 Post-traumatic stress disorder, unspecified; F17.200 Nicotine dependence, unspecified, uncomplicated; Z88.0 Allergy status to penicillin; Z79.899 Other long term (current) 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
CPT/HCPCS: 36415; 80053; 80176; 81001; 84443; 85025; 99284; G0480

== ENCOUNTER 2018-10-31 11:08 | Emergency (ER) | payer OTHER ==
[~2018-10-31] VITALS: Ht 162.6 cm; Wt 67.1 kg
--- OUTSIDE RECORDS SUMMARY | 2018-10-31 11:10 | XMS ---
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 BONILLA CREATED. CRITERIA MET - Group Notification - 6 ED Visits in 6 Months - [facility] - Has Care Guidelines - [facility] - 2 Visits in 30 Days CARE PROVIDERS ANNY JEROME [facility] 07/08/2018-Current PHONE: [phone] LEGACY [facility] PHONE: Unknown FABRIZIO [facility] PHONE: Unknown Guidelines Source: [employer] [facility] Guidelines Date: 08/26/2018 Care Coordination: Currently engaged in mental health services with [employer].\T\nbsp; Please contact [employer] with mental health concerns.\T\nbsp; [place]/Prasanna Clements: \T\nbsp; [phone]\T\nbsp; Shayy:\T\nbsp; [phone]. Care History Medical/Surgical 10/16/2018 [facility] - PATIENT CAN BE DIRECTED TO A MANAGER ED THROUGH [facility] IF PATIENT WOULD LIKE SOME OUTPATIENT RESOURCES FOR A\T\amp;D SERVICES AND OR MENTAL HEALTH HELP. - MANAGER ED WOULD HAVE TO HAVE AN AUTHORIZATION BEFORE SERVICES RENDERED- [phone] IS BEST CONTACT NUMBER. 07/08/2018 [facility] - PATIENT HAS AN APT WITH DR JEROME ON 10/15/18. - Patient is currently established with [facility]. If patient is seen in the ED during business hours. Please contact CHWs at [facility]. Care Recommendation: This patient has had 5 or more Emergency Department visits in the last 12 months.\T\nbsp; Patient requires education on the scope and purpose of the ED as an acute care provider not a Primary Care Provider and should not be utilized for chronic conditions.\T\nbsp; These are guidelines and the provider should exercise clinical judgment when providing care. 05/06/2018 [facility] - CHW CALLED PATIENT- PATIENT VOICEMAIL BOX IS FULL CAN\T\#39;T LEAVE A MESSAGE FOR A CALL BACK- - IF PATIENT IS WILLING TO ACCEPT HELP/DETOX- PLEASE CONTACT [facility]\T\amp; D SERVICES [phone] AND REQUEST AN ASSESSMENT IN THE ED. BEST CONTACT IS ESTHER GIMENEZ E.D. VISIT COUNT (12 MO.) 14 [facility] TOTAL 14 NOTE: Visits indicate total known visits. ED/UCC VISIT TRACKING (12 MO.) 10/31/2018 11:08 [facility] [place] TYPE: Emergency COMPLAINT: - POSS SEIZURE/HEAD INJURY 10/15/2018 14:21 [facility] [place] TYPE: Emergency COMPLAINT: - MEDICAL CLEARANCE DIAGNOSES: - Nicotine dependence, unspecified, uncomplicated - Other alf (current) 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 - Major depressive disorder, single episode, unspecified - Post-traumatic stress disorder, unspecified - Alcohol abuse with intoxication, unspecified - Allergy status to penicillin - Anxiety disorder, unspecified - Blood alcohol level of 240 mg/100 ml or more 10/06/2018 15:06 [facility] [place] TYPE: Emergency COMPLAINT: - PAIN DIAGNOSES: - Anxiety disorder, unspecified - Acquired absence of both cervix and uterus - Pelvic and perineal pain - Allergy status to penicillin - Unspecified hydronephrosis - Major depressive disorder, single episode, unspecified - Other alf (current) 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 - Nicotine dependence, unspecified, uncomplicated - Alcohol dependence, uncomplicated - Polyneuropathy, unspecified 10/05/2018 18:51 [facility] [place] TYPE: Emergency COMPLAINT: - BACK PAIN/POST OP PROBLEM DIAGNOSES: - Other chronic pain - Alcohol abuse, uncomplicated - Anxiety disorder, unspecified - Major depressive disorder, single episode, unspecified - Pelvic and perineal pain - Other long term care social worker (current) 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 - Allergy status to [...] tract infection, site not specified - Other long term care social worker (current) 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 - Polyneuropathy, unspecified - Postprocedural hemorrhage of a genitourinary system organ or structure following a genitourinary system procedure - Acquired absence of both cervix and uterus - Nicotine dependence, unspecified, uncomplicated 10/01/2018 18:52 [facility] [place] TYPE: Emergency COMPLAINT: - BACK PAIN/NON INJURY DIAGNOSES: - Other long term care social worker (current) 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 - Urinary tract infection, [...] - Post-traumatic stress disorder, unspecified - Other alf (current) 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 - Blood alcohol level [...] penicillin - Anxiety disorder, unspecified - Other long term care social worker (current) 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 - Headache - Major [...] more - Anxiety disorder, unspecified - Other alf (current) 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 07/05/2018 04:09 [facility] [place] TYPE: Emergency COMPLAINT: - MEDICAL CLEARANCE DIAGNOSES: - Allergy status to penicillin - Blood alcohol level of 240 mg/100 ml or more - Suicidal ideations - Nicotine dependence, unspecified, uncomplicated - Post-traumatic stress disorder, unspecified - Other long term care social worker (current) 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 - Alcohol abuse with intoxication, unspecified - Polyneuropathy, unspecified - Anxiety disorder, unspecified 05/04/2018 19:24 [facility] [place] TYPE: Emergency COMPLAINT: - INTOXICATION DIAGNOSES: - Allergy status to penicillin - Alcohol dependence with intoxication, unspecified - Post-traumatic stress disorder, unspecified - Anxiety disorder, unspecified - Other alf (current) 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 - Polyneuropathy, unspecified - [...] - Nicotine dependence, unspecified, uncomplicated - Other alf (current) 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 01/14/2018 22:40 [facility] [...] - Diarrhea, unspecified - Dehydration - Other long term care social worker (current) 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 - Post-traumatic stress disorder, unspecified [email or web address]
--- NOTE | 2018-11-01 15:32 | EKG ---
[facility] [address] [facility] [address] [place] [address] Signed Normal sinus rhythm Prolonged QT Abnormal ECG When compared with ECG of 23-SEP-2018 11:03, No significant change was found Confirmed by DARIUSZ MON MD ([id number]) on 11/01/2018 3:32:04 PM Electronically Signed By: DARIUSZ MON MD 11/01/18 1532 PATIENT NAME: LISHA ESCALONA Electrocardiogram DATE OF : 80 PHYSICIAN: DARIUSZ MON MD REPORT #: [id number] REPORT IS CONFIDENTIAL AND NOT TO BE RELEASED WITHOUT AUTHORIZATION
== END 2018-10-31 13:22 | disposition short-term general hospital (02) ==
LOC: ED 11:08
DX: S06.6X0A Traumatic subarachnoid hemorrhage without loss of consciousness, initial encounter (principal); S01.01XA Laceration without foreign body of scalp, initial encounter; R55 Syncope and collapse; F41.9 Anxiety disorder, unspecified; F32.9 Major depressive disorder, single episode, unspecified; F17.200 Nicotine dependence, unspecified, uncomplicated; Z90.710 Acquired absence of both cervix and uterus; Z88.0 Allergy status to penicillin; Z79.899 Other long term (current) 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; W18.30XA Fall on same level, unspecified, initial encounter
CPT/HCPCS: 70450; 72125; 85025; 90471; 90715; 93005; 93010; 96361; 96374; 96375; 96376; 99285-25; G0480; J1170; J2405; J3010; J7030

== ENCOUNTER 2018-11-01 19:48 | Emergency (ER) | payer OTHER ==
[~2018-11-01] VITALS: Ht 162.6 cm; Wt 67.3 kg
--- OUTSIDE RECORDS SUMMARY | 2018-11-01 19:50 | XMS ---
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 BONILLA CREATED. CRITERIA MET - Group Notification - 6 ED Visits in 6 Months - [facility] - Has Care Guidelines - [facility] - 2 Visits in 30 Days CARE PROVIDERS ANNY JEROME [facility] 07/08/2018-Current PH[facility]: [phone] [facility] FABRIZIO MONREAL [facility] PHONE: Unknown Guidelines Source: [facility] - [facility] Guidelines Date: 08/26/2018 Care Coordination: Currently engaged in mental health services with [facility].\T\nbsp; Please contact [employer] with mental health concerns.\T\nbsp; Andrey/Prasanna Clements: \T\nbsp; [phone]\T\nbsp; Shayy:\T\nbsp; [phone]. Care History Medical/Surgical 10/16/2018 [facility] - PATIENT CAN BE DIRECTED TO A HYDRAULIC AUTO JACK MECHANIC THROUGH [facility] IF PATIENT WOULD LIKE SOME OUTPATIENT RESOURCES FOR A\T\amp;D SERVICES AND OR MENTAL HEALTH HELP. - HYDRAULIC AUTO JACK MECHANIC WOULD HAVE TO HAVE AN AUTHORIZATION BEFORE SERVICES RENDERED- [phone] IS BEST CONTACT NUMBER. 07/08/2018 [facility] - PATIENT HAS AN APT WITH DR JEROME ON 10/15/18. - Patient is currently established with [facility]. If patient is seen in the ED during business hours. Please contact CHWs at [facility]. Care Recommendation: This patient has had 5 or more Emergency Department visits in the last 12 months.\T\nbsp; Patient requires education on the scope and purpose of the ED as an acute care provider not a Primary Care Provider and should not be utilized for chronic conditions.\T\nbsp; These are guidelines and the provider should exercise clinical judgment when providing care. 05/06/2018 [facility] - CHW CALLED PATIENT- PATIENT VOICEMAIL BOX IS FULL CAN\T\#39;T LEAVE A MESSAGE FOR A CALL BACK- - IF PATIENT IS WILLING TO ACCEPT HELP/DETOX- PLEASE CONTACT [facility] A\T\amp; D SERVICES [phone] AND REQUEST AN ASSESSMENT IN THE ED. BEST CONTACT IS ESTHER GIMENEZ E.D. VISIT COUNT (12 MO.) 1 [facility] and [facility] 15 [facility] TOTAL 16 NOTE: Visits indicate total known visits. ED/UCC VISIT TRACKING (12 MO.) 11/01/2018 19:48 [facility] TYPE: Emergency COMPLAINT: - MEDICAL CLEARANCE 10/31/2018 14:45 [facility] TYPE: Emergency DIAGNOSES: 37485. traumatic sub dural 71321. Fall on same level, unspecified, initial encounter 09749. Nontraumatic subarachnoid hemorrhage, unspecified 10/31/2018 11:08 [facility] [place] TYPE: Emergency COMPLAINT: - POSS SEIZURE/HEAD INJURY 10/15/2018 14:21 [facility] [place] TYPE: Emergency COMPLAINT: - MEDICAL CLEARANCE DIAGNOSES: - Nicotine dependence, unspecified, uncomplicated - Other buttermaker helper (current) 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 - Major depressive disorder, single episode, unspecified - Post-traumatic stress disorder, unspecified - Alcohol abuse with intoxication, unspecified - Allergy status to penicillin - Anxiety disorder, unspecified - Blood alcohol level of 240 mg/100 ml or more 10/06/2018 15:06 [facility] [place] TYPE: Emergency COMPLAINT: - PAIN DIAGNOSES: - Anxiety disorder, unspecified - Acquired absence of both cervix and uterus - Pelvic and perineal pain - Allergy status to penicillin - Unspecified hydronephrosis - Major depressive disorder, single episode, unspecified - Other buttermaker helper (current) 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 - Nicotine dependence, unspecified, uncomplicated - Alcohol dependence, uncomplicated - Polyneuropathy, unspecified 10/05/2018 18:51 [facility] [place] TYPE: Emergency COMPLAINT: - BACK PAIN/POST OP PROBLEM DIAGNOSES: - Other chronic pain - Alcohol abuse, uncomplicated - Anxiety disorder, unspecified - Major depressive disorder, single episode, unspecified - Pelvic and perineal pain - Other buttermaker helper (current) 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 - Allergy status to [...] tract infection, site not specified - Other buttermaker helper (current) 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 - Polyneuropathy, unspecified - Postprocedural hemorrhage of a genitourinary system organ or structure following a genitourinary system procedure - Acquired absence of both cervix and uterus - Nicotine dependence, unspecified, uncomplicated 10/01/2018 18:52 [facility] [place] TYPE: Emergency COMPLAINT: - BACK PAIN/NON INJURY DIAGNOSES: - Other buttermaker helper (current) 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 - Urinary tract infection, [...] - Post-traumatic stress disorder, unspecified - Other skilled nursing (current) 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 - Blood alcohol level [...] penicillin - Anxiety disorder, unspecified - Other skilled nursing (current) 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 - Headache - Major [...] more - Anxiety disorder, unspecified - Other skilled nursing (current) 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 07/05/2018 04:09 [facility] [place] TYPE: Emergency COMPLAINT: - MEDICAL CLEARANCE DIAGNOSES: - Allergy status to penicillin - Blood alcohol level of 240 mg/100 ml or more - Suicidal ideations - Nicotine dependence, unspecified, uncomplicated - Post-traumatic stress disorder, unspecified - Other skilled nursing (current) 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 - Alcohol abuse with intoxication, unspecified - Polyneuropathy, unspecified - Anxiety disorder, unspecified 05/04/2018 19:24 [facility] [place] TYPE: Emergency COMPLAINT: - INTOXICATION DIAGNOSES: - Allergy status to penicillin - Alcohol dependence with intoxication, unspecified - Post-traumatic stress disorder, unspecified - Anxiety disorder, unspecified - Other buttermaker helper (current) 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 - Polyneuropathy, unspecified - [...] - Nicotine dependence, unspecified, uncomplicated - Other buttermaker helper (current) 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 01/14/2018 22:40 [facility] [place] TYPE: Emergency COMPLAINT: - CHEST PAIN DIAGNOSES: - Nicotine dependence, unspecified, uncomplicated - Chest pain, unspecified - Allergy status to penicillin - Other skilled nursing (current) 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 INPATIENT VISIT TRACKING (12 [...] - Diarrhea, unspecified - Dehydration - Other buttermaker helper (current) 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 - Post-traumatic stress disorder, unspecified [email or web address]
== END 2018-11-02 02:42 | disposition home or self-care (01) ==
LOC: ED 19:48
DX: F10.129 Alcohol abuse with intoxication, unspecified (principal); S06.6X0D Traumatic subarachnoid hemorrhage without loss of consciousness, subsequent encounter; F17.200 Nicotine dependence, unspecified, uncomplicated; F32.9 Major depressive disorder, single episode, unspecified; F41.9 Anxiety disorder, unspecified; Z79.899 Other long term (current) 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; Z90.710 Acquired absence of both cervix and uterus
CPT/HCPCS: 70450; 80053; 80176; 81001; 84443; 84703; 85025; 85610; 85730; 96360; 96361; 99284-25; G0480; J7030

== ENCOUNTER 2019-01-06 03:02 | Emergency (ER) | payer OTHER ==
[~2019-01-06] VITALS: Ht 162.6 cm; Wt 67.3 kg
[~2019-01-06 03:02] MED LIST changes: +OXYBUTYNIN CHLOR5 MG PO; +PYRIDIUM100 MG PO
--- OUTSIDE RECORDS SUMMARY | 2019-01-06 03:04 | XMS ---
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 CRITERIA MET - Group Notification - 6 ED Visits in 6 Months - [facility] - [facility] QUEENIE KATH [facility] 07/08/2018-Current PHONE: [phone] KATHYA ROGERS Primary Care On license of [facility] PHONE: Unknown FABRIZIO [facility] PHONE: Unknown Guidelines Source: [facility] Guidelines Date: 08/26/2018 Care Coordination: Currently engaged in mental health services with [facility].\T\nbsp; Please contact [facility] with mental health concerns.\T\nbsp; Andrey/Prasanna Clements: \T\nbsp; [phone]\T\nbsp; Kathya:\T\nbsp; [phone]. Care History Medical/Surgical 10/16/2018 [facility] - PATIENT CAN BE DIRECTED TO A HOSTED SERVICES ANALYST THROUGH [facility] IF PATIENT WOULD LIKE SOME OUTPATIENT RESOURCES FOR A\T\amp;D SERVICES AND OR MENTAL HEALTH HELP. - HOSTED SERVICES ANALYST WOULD HAVE TO HAVE AN AUTHORIZATION BEFORE SERVICES RENDERED- [phone] IS BEST CONTACT NUMBER. 07/08/2018 [facility] - PATIENT HAS AN APT WITH DR JEROME ON 10/15/18. - Patient is currently established with [facility]. If patient is seen in the ED during business hours. Please contact CHWs at [facility]. Care Recommendation: This patient has had 5 or more Emergency Department visits in the last 12 months.\T\nbsp; Patient requires education on the scope and purpose of the ED as an acute care provider not a Primary Care Provider and should not be utilized for chronic conditions.\T\nbsp; These are guidelines and the provider should exercise clinical judgment when providing care. 05/06/2018 [facility] - CHW CALLED PATIENT- PATIENT VOICEMAIL BOX IS FULL CAN\T\#39;T LEAVE A MESSAGE FOR A CALL BACK- - IF PATIENT IS WILLING TO ACCEPT HELP/DETOX- PLEASE CONTACT [facility] [phone] AND REQUEST AN ASSESSMENT IN THE ED. BEST CONTACT IS ESTHER GIMENEZ E.D. VISIT COUNT (12 MO.) 1 [facility] and [facility] 17 [facility] TOTAL 18 NOTE: Visits indicate total known visits. ED/UCC VISIT TRACKING (12 MO.) 01/06/2019 03:03 [facility] [place] TYPE: Emergency COMPLAINT: - FLANK PAIN 11/19/2018 23:50 [facility] [place] TYPE: Emergency COMPLAINT: - HEAD PAIN/ NO INJURY DIAGNOSES: - Allergy status to penicillin - Anxiety disorder, unspecified - Headache - Nicotine dependence, unspecified, uncomplicated - Major depressive disorder, single episode, unspecified - Other furnace charging machine operator (current) 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 11/01/2018 19:48 [facility] [place] TYPE: Emergency COMPLAINT: - MEDICAL CLEARANCE DIAGNOSES: - Other furnace charging machine operator (current) 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 - Nicotine dependence, unspecified, uncomplicated - Restlessness and agitation - Acquired absence of both cervix and uterus - Traumatic subarachnoid hemorrhage without loss of consciousness, subsequent encounter - Major depressive disorder, single episode, unspecified - Alcohol abuse with intoxication, unspecified - Anxiety disorder, unspecified 10/31/2018 14:45 [facility] TYPE: Emergency DIAGNOSES: 70002. traumatic sub dural 18333. Fall on same level, unspecified, initial encounter 15265. Nontraumatic subarachnoid hemorrhage, unspecified 10/31/2018 11:08 [facility] [place] TYPE: Emergency COMPLAINT: - POSS SEIZURE/HEAD INJURY DIAGNOSES: - Headache - Acquired absence of both cervix and uterus - Major depressive disorder, single episode, unspecified - Anxiety disorder, unspecified - Allergy status to penicillin - Traumatic subarachnoid hemorrhage without loss of consciousness, initial encounter - Other furnace charging machine operator (current) 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 - Nicotine dependence, unspecified, uncomplicated - Fall on same level, unspecified, initial encounter - Laceration without foreign body of scalp, initial encounter - Syncope and collapse 10/15/2018 14:21 [facility] [place] TYPE: Emergency COMPLAINT: - MEDICAL CLEARANCE DIAGNOSES: - Nicotine dependence, unspecified, uncomplicated - Other furnace charging machine operator (current) 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 - Major depressive disorder, [...] depressive disorder, single episode, unspecified - Other furnace charging machine operator (current) 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 - Nicotine dependence, unspecified, uncomplicated - Alcohol dependence, uncomplicated - Polyneuropathy, unspecified 10/05/2018 18:51 [facility] [place] TYPE: Emergency COMPLAINT: - BACK PAIN/POST OP PROBLEM DIAGNOSES: - Other chronic pain - Alcohol abuse, uncomplicated - Anxiety disorder, unspecified - Major depressive disorder, single episode, unspecified - Pelvic and perineal pain - Other senior care (current) 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 - Allergy status to [...] - Post-traumatic stress disorder, unspecified - Other furnace charging machine operator (current) 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 - Blood alcohol [...] unspecified - Anxiety disorder, unspecified - Other senior [...] - Nicotine dependence, unspecified, uncomplicated - Other senior care (current) 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 01/14/2018 22:40 [facility] [place] TYPE: Emergency COMPLAINT: - CHEST PAIN DIAGNOSES: - Nicotine dependence, unspecified, uncomplicated - Chest pain, unspecified - Allergy status to penicillin - Other furnace charging machine operator (current) 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 INPATIENT VISIT TRACKING [...] - Diarrhea, unspecified - Dehydration - Other furnace charging machine operator (current) 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 - Post-traumatic stress disorder, unspecified [email or web address]
== END 2019-01-06 05:38 | disposition home or self-care (01) ==
LOC: ED 03:02
DX: R10.9 Unspecified abdominal pain (principal); F17.200 Nicotine dependence, unspecified, uncomplicated; F32.9 Major depressive disorder, single episode, unspecified; F41.9 Anxiety disorder, unspecified; Z88.0 Allergy status to penicillin; Z79.899 Other long term (current) 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
CPT/HCPCS: 74176; 80053; 81001; 85025; 96374; 99284-25; J1885

== ENCOUNTER 2019-03-12 02:59 | Emergency (ER) | payer OTHER ==
[~2019-03-12] VITALS: Ht 162.6 cm; Wt 67.3 kg
--- OUTSIDE RECORDS SUMMARY | ~2019-03-12 | XMS | Encounter Summary ---
Demographics + + + | Address | [address] | | | [place] [address] | + + + | Home Phone | | + + + | Preferred Language | Unknown | + + + | Marital Status | Single | + + + | Mosque Affiliation | NRP | + + + | Race | White | + + + | Ethnic Group | Not or | + + + Author + + + | Author | [facility] | + + + | Organization | [facility] | + + + | Address | Unknown | + + + | Phone | Unavailable | + + + Support + + +---------+ + | Name | Relationship | Address | Phone | + + +---------+ + | Irina Trevino | ECON | Unknown | | + + +---------+ + Care Team Providers + +------+ + | Care Import Coordinator Name | Role | Phone | + +------+ + | Anibal Ferrara MD | PCP | | + +------+ + Encounter Details +--------+ + + + + | Date | Type | Department | Care Team | Description | +--------+ + + + + | 12/23/ | Pharmacy | [facility] Inpatient | | | | 2019 | Visit | Pharm[address] | | | | | | [address] | | | | | | [place], [place] | | | | | | [address] | | | +--------+ + + + [...]
--- OUTSIDE RECORDS SUMMARY | ~2019-03-12 | XMS | Encounter Summary ---
Demographics + + + | Address | [address] | | | [place] [address] | + + + | Home Phone | | + + + | Preferred Language | Unknown | + + + | Marital Status | Single | + + + | Catholic Affiliation | NRP | + + + | Race | White | + + + | Ethnic Group | Not or | + + + Author + + + | Author | [facility] | + + + | Organization | [facility] | + + + | Address | Unknown | + + + | Phone | Unavailable | + + + Support + + +---------+ + | Name | Relationship | Address | Phone | + + +---------+ + | Irina Trevino | ECON | Unknown | | + + +---------+ + Care Team Providers + +------+ + | Care Shield Operator Name | Role | Phone | + [...] | | | | | [place], | | | | | | [place] [address] | | | | | | [phone] | | | +--------+ + + + [...]
--- OUTSIDE RECORDS SUMMARY | ~2019-03-12 | XMS | Clinical Summary ---
Demographics + + + | Address | [address] | | | [place] [address] | + + + | Home Phone | | + + + | Preferred Language | Unknown | + + + | Marital Status | Single | + + + | Quaker Affiliation | NRP | + + + | Race | White | + + + | Ethnic Group | Not or | + + + Author + + + | Author | [facility] | + + + | Organization | [facility] | + + + | Address | Unknown | + + + | Phone | Unavailable | + + + Support + + +---------+ + | Name | Relationship | Address | Phone | + + +---------+ + | Irina Trevino | ECON | Unknown | | + + +---------+ + Care Team Providers + +------+ + | Care Dextrine Mixer Name | Role | Phone | + +------+ + | Anibal Ferrara MD | PCP | | + +------+ + Source Comments JENNIFER is fully live on both [facility] Ambulatory and [facility] InPatient.[facility] Allergies + + + + + + | Active Allergy | Reactions | Severity | Noted | Comments | | | | | Date | | + + + + + + | Penicillin | Rash | | 11/01/19 | | | | | | 19 | | + + + + + + Medications + + + +---------+------+------+-------+ | Medication | Sig | Dispensed | Refills | Star | End | Statu | | | | | | t | Date | s | | | | | | Date | | | + + + +---------+------+------+-------+ | buPROPion XL 300 | Take 300 mg by mouth | | 0 | | | Activ | | mg oral tablet | once daily at | | | | | e | | extended release 24 | bedtime. | | | | | | | hrIndications: | Indications: | | | | | | | Anxiety with | Anxiousness | | | | | | | Depression | associated with | | | | | | | | Depression | | | | | | + + + +---------+------+------+-------+ | gabapentin 300 mg | Take 300 mg by mouth | | 0 | | | Activ | | oral | three times daily. | | | | | e | | capsuleIndications: | Indications: | | | | | | | Neuropathic Pain | Neuropathic Pain | | | | | | + + + +---------+------+------+-------+ | propranolol 20 mg | Take 20 mg by mouth | | 0 | | | Activ | | oral | three times daily. | | | | | e | | tabletIndications: | Indications: | | | | | | | Essential Tremor, & | Essential Tremor, & | | | | | | | Night terrors | Night terrors | | | | | | + + + +---------+------+------+-------+ | chlordiazePOXIDE | Day 1: Take 50-100 | 40 | 0 | 07/0 | | Activ | | 25 mg oral capsule | mg by mouth four | capsule | | 5/20 | | e | | | times daily 2: | | | 19 | | | | | Take 50-100 mg by | | | | | | | | mouth three times | | | | | | | | dailyDay 3: Take | | | | | | | | 50-100 mg by mouth | | | | | | | | twice daily 4: | | | | | | | | Take 50-100 mg by | | | | | | | | mouth at bedtime. | | | | | | + + + +---------+------+------+-------+ Active Problems Not on file Encounters +--------+ + + + + | Date | Type | Specialty | Care Team | Description | +--------+ + + + + | 12/23/ | Pharmacy | Pharmacy Services | | | | 2019 | Visit | | | | +--------+ + + + + from Last 3 Months Family History + + +------+ + | Medical History | Relation | Name | Comments | + + +------+ + | COPD | Father | | | + + +------+ + | Coronary Artery | Father | | | | Disease | | | | + + +------+ + | Meniere's disease | Mother | | | + + +------+ + + +------+--------+ + | Relation | Name | Status | Comments | + +------+--------+ + | Father | | | | + +------+--------+ + | Mother | | | | + +------+--------+ + Social History + + + +--------+------+ [...] recent travel history available. | + + Last Filed Vital Signs + + + + + | Vital Sign | Reading | Time Taken | Comments | + + + + + | Blood Pressure | 124/79 | 11/01/2018 10:35 AM | | | | | PDT | | + + + + + | Pulse | 82 | 11/01/2018 7:44 AM | | | | | PDT | | + + + + + | Temperature | 36.9 C (98.4 F) | 11/01/2018 10:35 AM | | | | | PDT | | + + + + + | Respiratory Rate | 16 | 11/01/2018 10:35 AM | | | | | PDT | | + + + + + | Oxygen Saturation | 97% | 11/01/2018 10:35 AM | | | | | PDT | | + + + + + | Inhaled Oxygen | - | - | | | Concentration | | | | + + + + + | Weight | - | - | | + + + + + | Height | - | - | | + + + + + | Body Mass Index | - | - | | + + + + + Plan of Treatment + + + + + | Health Maintenance | Due Date | Last Done | Comments | + + + + + | Pneumococcal | | | | | vaccination (1 of 1 | 6 | | | | - PPSV23) | | | | + + + + + | Influenza (Flu) | | | | | vaccination (#1) | 9 | | | + + + + + Results Not on filefrom Last 3 Months Insurance + +--------+ +--------+ + +--------+ | Payer | Benefi | Subscriber | Effect | Phone | Address | Type | | | t Plan | ID | karen | | | | | | / | | Dates | | | | | | Group | | | | | | + +--------+ +--------+ + +--------+ | [employer] | UNITED | xxxxxxxxx | Effect | | | PPO | | | | | karen | | | | | | HEALTH | | for | | | | | | CARE | | all | | | | | | | | dates | | | | + +--------+ +--------+ + +--------+ | [place] | OHP | [id number] | Effect | [phone] | [address] | | | PLUS | | karen | [address] | [id number] | id | | | OPEN | | for | | [place], [place] | | | | CARD | | all | | [id number] | | | | | | dates | | | | + +--------+ +--------+ + +--------+ + +--------+ +--------+ + + | Guarantor Name | Accoun | Relation to | Date | Phone | Billing Address | | | t Type | Patient | of | | | | | | | | | | + +--------+ +--------+ + + | Shweta Mendosa | Person | Self [birth year] | [address] [employer] | | | al/Fam | | 1980 | [phone] | [place] [address] | | | alejandro | | | 5 (Home) | | + +--------+ +--------+ + + Advance Directives + + + + + | Code Status | Date | Date | Comments | | | Activated | Inactivated | | + + + + + | Full Code | 10/31/2018 | 11/01/2018 | | | | 5:47 PM | 6:25 PM | | + + + + +"
--- OUTSIDE RECORDS SUMMARY | ~2019-03-12 | XMS | Encounter Summary ---
Demographics + + + | Address | [address] | | | [place] [address] | + + + | Home Phone | | + + + | Preferred Language | Unknown | + + + | Marital Status | Single | + + + | Moravian Affiliation | NRP | + + + [...] Team Providers + +------+ + | Care Construction Supervisor/Carpenter Name | Role | Phone | + [...]
--- OUTSIDE RECORDS SUMMARY | ~2019-03-12 | XMS | Encounter Summary ---
Demographics + + + | Address | [address] | | | [place] [address] | + + + | Home Phone | | + + + | Preferred Language | Unknown | + + + | Marital Status | Single | + + + | Alevism Affiliation | NRP | + + + | Race | White | + + + | Ethnic Group | Not or | + + + Author + + + | Author | [facility] | + + + | Organization | [facility] | + + + | Address | Unknown | + + + | Phone | Unavailable | + + + Support + + +---------+ + | Name | Relationship | Address | Phone | + + +---------+ + | Irina Trevino | ECON | Unknown | | + + +---------+ + Care Team Providers + +------+ + | Care Building Consultant Name | Role | Phone | + [...] | | | | | Jazlyn Ko[address] [place], | | | | | | [place] [address] | | | | | | [phone] | | | +--------+ + + + [...]
--- OUTSIDE RECORDS SUMMARY | ~2019-03-12 | XMS | Clinical Summary ---
Demographics + + + | Address | [address] | | | [place] [address] | + + + | Home Phone | | + + + | Preferred Language | Unknown | + + + | Marital Status | Single | + + + | Roman Catholic Affiliation | NRP | + + [...] Team Providers + +------+ + | Care Assembly And Packing Supervisor Name | Role | Phone | + +------+ + | Anibal Ferrara MD | PCP | | + +------+ + Source Comments JENNIFER is fully live on both [facility] Ambulatory and [facility] InPatient.[facility] Allergies + + + + + + [...] PLUS | | karen | 6 | [id number] | id | | | OPEN | | for | | [place], [place] | | | | CARD | | all | | [id number] | | | | | | dates [...] | [birth year] | | [address] [employer] | | | al/Fam | | 1980 | [phone] | [place] [address] | | | alejandro | | | [...]
--- OUTSIDE RECORDS SUMMARY | ~2019-03-12 | XMS | Encounter Summary ---
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 0.02 | [facility] | | | | | K/cu mm | LABORATORY | | | | | | SERVICES, | | | | | | CORE | | + + + + + + + + | Specimen | + + | Blood - Blood | | (substance) | + + + + + + + | Performing | Address | City/State/Zipcode | Phone Number | | Organization | | | | + + + + + | [facility] | [address] | [place] [address] | | | SERVICES, CORE | [address] | | | + + + + + BASIC METABOLIC SET (NA, K, CL, TCO2, BUN, CR, GLU, CA) (11/01/2018 4:58 AM PDT) + + + + + + | Component | Value | Ref Range | Performed | Pathologist | | | | | At | Signature | + + + + + + | GLUCOSE, | 75 | 70 - 99 mg/dL | [facility] | | | PLASMA | | | LABORATORY | | | (LAB) | | | SERVICES, | | | | | | CORE | | + + + + + + | BUN, PLASMA | 5 (L) | 6 - 20 mg/dL | [facility] | | | (LAB) | | | LABORATORY | | | | | | SERVICES, | | | | | | CORE | | + + + + + + | CREATININE | 0.59 (L) | 0.60 - 1.10 | [facility] | | | PLASMA | | mg/dL | LABORATORY | | | (LAB) | | | SERVICES, | | | | | | CORE | | + + + + + + | EGFR | >60 | >60 mL/min | [facility] | | | - | | | LABORATORY | | | CYMRO | | | SERVICES, | | | | | | CORE | | + + + + + + | EGFR NON | >60 | >60 mL/min | [facility] | | | -ELENITA | | | LABORATORY | | | RICAN | | | SERVICES, | | | | | | CORE | | + + + + + + | SODIUM, | 137 | 136 - 145 | [facility] | | | PLASMA | | mmol/L | LABORATORY | | | (LAB) | | | SERVICES, | | | | | | CORE | | + + + + + + | POTASSIUM, | 3.1 (L) | 3.4 - 5.0 | [facility] | | | PLASMA | | mmol/L | LABORATORY | | | (LAB) | | | SERVICES, | | | | | | CORE | | + + + + + + | CHLORIDE, | 104 | 97 - 108 mmol/L | [facility] | | | PLASMA | | | LABORATORY | | | (LAB) | | | SERVICES, | | | | | | CORE | | + + + + + + | TOTAL CO2, | 25 | 21 - 32 mmol/L | [facility] | | | PLASMA | | | LABORATORY | | | (LAB) | | | SERVICES, | | | | | | CORE | | + + + + + + | CALCIUM, | 8.0 (L) | 8.6 - 10.2 | [facility] | | | PLASMA | | mg/dL | LABORATORY | | | (LAB) | | | SERVICES, | | | | | | CORE | | + + + + + + | ANION GAP | 8 | 4 - 11 mmol/L | [facility] | | | | | | LABORATORY | | | | | | SERVICES, | | | | | | CORE | | + + + + + + | POTASSIUM | No Hemo | | [facility] | | | CMNT | | | LABORATORY | | | | | | SERVICES, | | | | | | CORE | | + + + + + + + + | Specimen | + + | Blood - Blood | | (substance) | + + + + + | Narrative | Performed At | + + + | GFR is estimated using the MDRD equation recommended by the National | [facility] | | Kidney Disease Education Program. Estimated GFR Interpretive | LABORATORY | | Information: <60 mL/min/1.73 sq m Chronic Kidney | SERVICES, CORE | | Disease <15 mL/min/1.73 sq m Kidney Failure | | | Estimated GFR greater than 60 mL/min/1.73 sq m is of limited clinical | | | value. The MDRD equation is not valid in the following situations: - | | | Patients under 18 years of age - Severe malnutrition or obesity - | | | Vegetarian diet - Rapidly changing kidney function - Amputees, | | | paraplegics, or other muscle-wasting diseses | | + + + + + + + + | Performing | Address | City/State/Zipcode | Phone Number | | Organization | | | | + + + + + | [facility] | [address] | [place] [address] | | | SERVICES, [facility] | [address] | | | + + + + + CARDIOLOGY (11/01/2018 12:00 AM PDT) + + + | Narrative | Performed At | + + + | | | + + + GILMER VASQUEZ ONLY (10/31/2018 11:43 PM PDT) + + + + + + | Component | Value | Ref Range | Performed | Pathologist | | | | | At | Signature | + + + + + + | COLOR(UR) | Straw | | [facility] | | | | | | LABORATORY | | | | | | SERVICES, | | | | | | CORE | | + + + + + + | APPEARANCE | Clear | | [facility] | | | | | | LABORATORY | | | | | | SERVICES, | | | | | | CORE | | + + + + + + | GLUCOSE(UR) | Negative | Negative, 50.0 | [facility] | | | | | mg/dL | LABORATORY | | | | | | SERVICES, | | | | | | CORE | | + + + + + + | PROTEIN(LAB | Negative | Negative, 30.0 | [facility] | | | ) | | mg/dL | LABORATORY | | | | | | SERVICES, | | | | | | CORE | | + + + + + + | BILIRUBIN | Negative | Negative | [facility] | | | | | | LABORATORY | | | | | | SERVICES, | | | | | | CORE | | + + + + + + | UROBILINOGE | <2.0 | <2.0 mg/dL | [facility] | | | N | | | LABORATORY | | | | | | SERVICES, | | | | | | CORE | | + + + + + + | PH(UR) | 7.0 | 5.0 - 8.0 | [facility] | | | | | | LABORATORY | | | | | | SERVICES, | | | | | | CORE | | + + + + + + | BLOOD | Negative | Negative | [facility] | | | | | | LABORATORY | | | | | | SERVICES, | | | | | | CORE | | + + + + + + | KETONES | Negative | Negative mg/dL | [facility] | | | | | | LABORATORY | | | | | | SERVICES, | | | | | | CORE | | + + + + + + | NITRITES | Negative | Negative | [facility] | | | | | | LABORATORY | | | | | | SERVICES, | | | | | | CORE | | + + + + + + | LEUKOCYTE | Negative | Negative | [facility] | | | ESTERASE | | | LABORATORY | | | | | | SERVICES, | | | | | | CORE | | + + + + + + | SPECIFIC | 1.005 | 1.005 - 1.030 | [facility] | | | GRAVITY | | | LABORATORY | | | | | | SERVICES, | | | | | | CORE | | + + + + + + + + | Specimen | + + | Urine - Urinary | | bladder structure | | (body structure) | + + + + + + + | Performing | Address | City/State/Zipcode | Phone Number | | Organization | | | | + + + + + | [facility] | [address] | [place] [address] | | | SERVICES, [place] | [address] | | | + + + + + ED INFORMATION EXCHANGE (10/31/2018 4:11 PM PDT) + + | Specimen | + + | | + + + + + | Narrative | Performed At | + + + | COLLECTIVE?NOTIFICATION?10/31/2018 14:45?LISHA MENDOSA?MRN: | COLLECTIVE | | [id number] Criteria Met 5 Visits In 12 Months Has | MEDICAL | | Guidelines Security and Safety Date Location Type Specifics | TECHNOLOGIES | | 10/06/18 3:06 PM [facility] Elopement Other | | | Details: PATIENT LEFT AMA. IRIS CREATED. Security Events (18 | | | Mo.) Count Elopement 1 Total 1 ED Care Guidelines from | | | Odilon - Jone Last Updated: 08/26/18 9:42 AM Care | | | Coordination: Currently engaged in mental health services with | | | [facility].? Please contact [facility] with mental health concerns.? | | | Andrey/Prasanna Clements:? [phone]? Shayy:? [phone]. | | | These are guidelines and the provider should exercise clinical | | | judgment when providing care. Care History Medical/Surgical | | | 10/16/18 12:00 AM [facility] PATIENT CAN BE | | | DIRECTED TO A SHIRT CLOSER THROUGH [facility] IF | | | PATIENT WOULD LIKE SOME OUTPATIENT RESOURCES FOR AandD SERVICES AND OR | | | MENTAL HEALTH HELP. SHIRT CLOSER WOULD HAVE TO HAVE AN | | | AUTHORIZATION BEFORE SERVICES rendered- [phone] IS BEST CONTACT | | | NUMBER. 07/08/18 12:00 AM [facility] | | | PATIENT HAS AN APT WITH DR JEROME ON 10/15/18. Patient is | | | currently established with [facility]. If patient is seen in | | | the ED during business hours. Please contact CHWs at [facility] | | | Clinic. Care Recommendation: This patient has had 5 or more | | | Emergency Department visits in the last 12 months.? Patient requires | | | education on the scope and purpose of the ED as an acute care | | | provider not a Primary Care Provider and should not be utilized for | | | chronic conditions.? These are guidelines and the provider should | | | exercise clinical judgment when providing care. 05/06/18 12:00 AM | | | [facility] CHW CALLED PATIENT- PATIENT | | | VOICEMAIL BOX IS FULL CAN'T LEAVE A MESSAGE FOR A CALL BACK- IF | | | PATIENT IS WILLING TO ACCEPT HELP/DETOX- PLEASE CONTACT [facility] | | | SERVICES [phone] AND REQUEST AN ASSESSMENT IN THE ED. BEST | | | CONTACT IS RADHA WORLEY. Prescription Drug Report | | | (12 Mo.) Unable to determine if a PDMP report exists, because an | | | error response was received from PDMP. E.D. Visit Count (12 | | | mo.) Facility Visits [facility] 1 [facility] | | | [facility] 14 Total 15 Note: Visits indicate total known | | | visits. Recent Emergency Department Visit Summary Showing 10 | | | most recent visits out of 15 in the past 12 months Date Facility City | | | State Type Diagnoses or Chief Complaint Oct 31, 2018 [facility] | | | [facility] [place] Emergency 10,151. traumatic | | | sub dural 18,400. Fall on same level, unspecified, initial | | | encounter 18,400. Nontraumatic subarachnoid hemorrhage, | | | unspecified Oct 31, 2018 [facility] [place] Emergency | | | Chief Complaint: POSS SEIZURE/HEAD INJURY Oct 15, 2018 [facility]. | | | [place] Emergency Major depressive disorder, | | | single episode, unspecified Nicotine dependence, unspecified, | | | uncomplicated Other mcc (current) 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 | | | Post-traumatic stress disorder, unspecified Alcohol abuse with | | | intoxication, unspecified Allergy status to penicillin | | | Anxiety disorder, unspecified Blood alcohol level of 240 mg/100 | | | ml or more Oct 06, 2018 [facility] 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 Emergency Other | | | chronic pain Alcohol abuse, uncomplicated Anxiety | | | disorder, unspecified Major depressive disorder, single episode, | | | unspecified Pelvic and perineal pain Other mcc | | | (current) 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 Allergy status to penicillin | | | Acquired absence of both cervix and uterus Nicotine dependence, | | | unspecified, uncomplicated Oct 03, 2018 [facility] [place] | | | [place] Emergency Allergy status to penicillin Major | | | depressive disorder, single episode, unspecified Abnormal | | | uterine and vaginal bleeding, unspecified Other acute | | | postprocedural pain Anxiety disorder, unspecified Urinary | | | tract infection, site not specified Other meterman (current) | | | 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 Polyneuropathy, unspecified Postprocedural | | | hemorrhage of a genitourinary system organ or structure following a | | | genitourinary system procedure Nicotine dependence, unspecified, | | | uncomplicated Oct 01, [address] [facility] [address] [place] Emergency | | | Low back pain Other mcc (current) 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 | | | Urinary tract infection, site not specified Major depressive | | | disorder, single episode, unspecified Other acute postprocedural | | | pain Anxiety disorder, unspecified Nicotine dependence, | | | unspecified, uncomplicated Alcohol abuse with intoxication, | | | unspecified Allergy status to penicillin Unspecified | | | abdominal pain September 23, 2018 [facility] [address] [place] | | | Emergency Chief Complaint: POST OP PROB/ABD PAIN August 28, 2018 | | | [facility] [place] Emergency Blood alcohol level of | | | 240 mg/100 ml or more Alcohol abuse with intoxication, | | | unspecified Suicidal ideations Nicotine dependence, | | | unspecified, uncomplicated Major depressive disorder, single | | | episode, unspecified Post-traumatic stress disorder, unspecified | | | Other meterman (current) 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 Anxiety disorder, | | | unspecified Allergy status to penicillin Aug 25, 2018 [facility] | | | [place] Emergency Nicotine dependence, | | | unspecified, uncomplicated Contusion of other part of head, | | | initial encounter Alcohol abuse with intoxication, unspecified | | | Allergy status to penicillin Anxiety disorder, unspecified | | | Other mcc (current) 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 Headache | | | Major depressive disorder, single episode, unspecified | | | Post-traumatic stress disorder, unspecified Polyneuropathy, | | | unspecified Recent Inpatient Visit Summary Date Facility | | | City State Type Diagnoses or Chief Complaint September 23, 2018 [facility] | | | [place] Critical Care Anxiety disorder, | | | unspecified Adverse effect of other antiepileptic and | | | sedative-hypnotic drugs, initial encounter Peritoneal abscess | | | Allergy status to penicillin Alcohol dependence with | | | withdrawal, unspecified Major depressive disorder, single | | | episode, unspecified Other acute postprocedural pain | | | Acquired absence of both cervix and uterus Nicotine dependence, | | | cigarettes, uncomplicated Unspecified abdominal pain | | | Care Team Provider PRC Type Phone Fax Service Dates ANNY JEROME, | | | [facility] Jul 08, 2018 - | | | Current [employer] Portal This patient has registered at the | | | [facility] Emergency Department For more | | | information visit: | | | [email or web address] | | | [email or web address] PLEASE NOTE: 1. Any care recommendations and other | | | clinical information are provided as guidelines or for historical | | | purposes only, and providers should exercise their own clinical | | | judgment when providing care. 2. You may only use this | | | information for purposes of treatment, payment or health care | | | operations activities, and subject to the limitations of applicable | | | Collective Policies. 3. You should consult directly with the | | | organization that provided a care guideline or other clinical | | | history with any questions about additional information or accuracy | | | or completeness of information provided. ? 2019 [employer] | | | [email or web address] - [email or web address] | | + + + + + | Procedure Note | + + | Service Account, Rtf Results Inbound - 10/31/2018 4:12 PM PDT Formatting of this | | note might be different from the original.COLLECTIVE?NOTIFICATION?10/31/2018 | | 14:45?MENDOSALISHA? Met 5 Visits In 12 Months Has | | GuidelinesSecurity and SafetyDate Location Type Specifics 10/06/18 3:06 PM [facility] | | [facility] Elopement Other Details: PATIENT LEFT AMA. IRIS CREATED. Security Events | | (18 Mo.) Count Elopement 1 Total 1 ED [facility] | | Updated: 08/26/18 9:42 AM Care Coordination:Currently engaged in mental health services | | with [facility].? Please contact [facility] with mental health concerns.? Andrey/Prasanna | | Tyree:? [phone]? Shayy:? [phone].These are guidelines and the provider | | should exercise clinical judgment when providing care.Care | | HistoryMedical/Surgical10/16/18 12:00 AM [facility] PATIENT CAN BE | | DIRECTED TO A SHIRT CLOSER THROUGH [facility] IF PATIENT WOULD LIKE SOME | | OUTPATIENT RESOURCES FOR AandD SERVICES AND OR MENTAL HEALTH HELP. SHIRT CLOSER WOULD | | HAVE TO HAVE AN AUTHORIZATION BEFORE SERVICES rendered- [phone] IS BEST CONTACT | | NUMBER.07/08/18 12:00 AM [facility] PATIENT HAS AN APT WITH DR JEROME ON | | 10/15/18. Patient is currently established with [facility]. If patient is seen | | in the ED during business hours. Please contact CHWs at [facility].Care | | Recommendation:This patient has had 5 or more Emergency Department visits in the last 12 | | months.? Patient requires education on the scope and purpose of the ED as an acute care | | provider not a Primary Care Provider and should not be utilized for chronic | | conditions.?These are guidelines and the provider should exercise clinical judgment when | | providing care.05/06/18 12:00 AM [facility] CHW CALLED PATIENT- PATIENT | | VOICEMAIL BOX IS FULL CAN'T LEAVE A MESSAGE FOR A CALL BACK- IF PATIENT IS WILLING TO | | ACCEPT HELP/DETOX- [facility] [phone] AND REQUEST AN | | ASSESSMENT IN THE ED. BEST CONTACT IS RADHA WORLEY.Prescription Drug Report (12 | | Mo.)Unable to determine if a PDMP report exists, because an error response was received | | from PDMP.E.D. Visit Count (12 mo.)Facility Visits [facility] | | 1 [facility] 14 Total 15 Note: Visits indicate total known visits. Recent | | Emergency Department Visit SummaryShowing 10 most recent visits out of 15 in the past | | 12 monthsDate Facility City State Type Diagnoses or Chief Complaint Oct 31, 2018 [place] | | [facility] [place] Emergency 10,151. traumatic sub dural | | 18,400. Fall on same level, unspecified, initial encounter 18,400. Nontraumatic | | subarachnoid hemorrhage, unspecified Oct 31, 2018 [facility] [place] Emergency | | Chief Complaint: POSS SEIZURE/HEAD INJURY Oct 15, 2018 [facility] [place] | | Emergency Major depressive disorder, single episode, unspecified Nicotine | | dependence, unspecified, uncomplicated Other meterman (current) 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 | | Post-traumatic stress disorder, unspecified Alcohol abuse with intoxication, | | unspecified Allergy status to penicillin Anxiety disorder, unspecified Blood | | alcohol level of 240 mg/100 ml or more Oct 06, 2018 [facility] [place] | | Emergency Anxiety disorder, unspecified Acquired absence of both cervix and uterus | | Pelvic and perineal pain Allergy status to penicillin Unspecified | | hydronephrosis Major depressive disorder, single episode, unspecified Other long | | term (current) 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 Nicotine dependence, unspecified, uncomplicated | | Alcohol dependence, uncomplicated Polyneuropathy, unspecified Oct 05, [address] [facility] [address] | | [place] Emergency Other chronic pain Alcohol abuse, uncomplicated | | Anxiety disorder, unspecified Major depressive disorder, single episode, unspecified | | Pelvic and perineal pain Other mcc (current) 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 Allergy status | | to penicillin Acquired absence of both cervix and uterus Nicotine dependence, | | unspecified, uncomplicated Oct 03, 2018 [facility] [place] Emergency | | Allergy status to penicillin Major depressive disorder, single episode, unspecified | | Abnormal uterine and vaginal bleeding, unspecified Other acute postprocedural pain | | Anxiety disorder, unspecified Urinary tract infection, site not specified Other | | mcc (current) 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 Polyneuropathy, unspecified Postprocedural | | hemorrhage of a genitourinary system organ or structure following a genitourinary system | | procedure Nicotine dependence, unspecified, uncomplicated Oct 01, 2018 [facility] [address] | | [place] Emergency Low back pain Other meterman (current) drug | | therapy Urinary tract infection, site not specified Major depressive disorder, | | single episode, unspecified Other acute postprocedural pain Anxiety disorder, | | unspecified Nicotine dependence, unspecified, uncomplicated Alcohol abuse with | | intoxication, unspecified Allergy status to penicillin Unspecified abdominal pain | | September 23, 2018 [facility] [place] Emergency Chief Complaint: POST OP PROB/ABD | | PAIN August 28, 2018 [facility] [place] Emergency Blood alcohol level of 240 | | mg/100 ml or more Alcohol abuse with intoxication, unspecified Suicidal ideations | | Nicotine dependence, unspecified, uncomplicated Major depressive disorder, single | | episode, unspecified Post-traumatic stress disorder, unspecified Other meterman | | (current) 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 Anxiety disorder, unspecified Allergy status to penicillin | | Aug 25, 2018 [facility] [place] Emergency Nicotine dependence, | | unspecified, uncomplicated Contusion of other part of head, initial encounter | | Alcohol abuse with intoxication, unspecified Allergy status to penicillin Anxiety | | disorder, unspecified Other mcc (current) 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 Headache Major | | depressive disorder, single episode, unspecified Post-traumatic stress disorder, | | unspecified Polyneuropathy, unspecified Recent Inpatient Visit SummaryDate Facility | | [facility] Type Diagnoses or Chief Complaint September 23, 2018 [facility] [place] | | Critical Care Anxiety disorder, unspecified Adverse effect of other antiepileptic | | and sedative-hypnotic drugs, initial encounter Peritoneal abscess Allergy status | | to penicillin Alcohol dependence with withdrawal, unspecified Major depressive | | disorder, single episode, unspecified Other acute postprocedural pain Acquired | | absence of both cervix and uterus Nicotine dependence, cigarettes, uncomplicated | | Unspecified abdominal pain Care TeamProvider [facility] Type Phone Fax Service Dates [facility], | | Malathi MCCORMICK. Family Medicine Jul 08, 2018 - Current | | [facility] PortalThis patient has registered at the [facility] | | Emergency Department For more information visit: | | [email or web address] PLEASE | | NOTE: 1. Any care recommendations and other clinical information are provided as | | guidelines or for historical purposes only, and providers should exercise their own | | clinical judgment when providing care. 2. You may only use this information for | | purposes of treatment, payment or health care operations activities, and subject to the | | limitations of applicable Collective Policies. 3. You should consult directly with | | the organization that provided a care guideline or other clinical history with any | | questions about additional information or accuracy or completeness of information | | provided.? 2019 [employer] - [email or web address] | |Oct 05, 2018 [facility] [address] [place] Emergency | | Other chronic pain | | Alcohol abuse, uncomplicated | | Anxiety disorder, unspecified | | Major depressive disorder, single episode, unspecified | | Pelvic and perineal pain | | Other meterman (current) 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 | | Allergy status to penicillin | | Acquired absence of both cervix and uterus | | Nicotine dependence, unspecified, uncomplicated | | | |Oct 03, 2018 [facility] [place] Emergency | | Allergy status to penicillin | | Major depressive disorder, single episode, unspecified | | Abnormal uterine and vaginal bleeding, unspecified | | Other acute postprocedural pain | | Anxiety disorder, unspecified | | Urinary tract infection, site not specified | | Other mcc (current) 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 | | Polyneuropathy, unspecified | | Postprocedural hemorrhage of a genitourinary system organ or structure following a genit ourinary system procedure | | Nicotine dependence, unspecified, uncomplicated | | | |Oct 01, 2018 [facility] [place] Emergency | | Low back pain | | Other mcc (current) 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 | | Urinary tract infection, site not specified | | Major depressive disorder, single episode, unspecified | | Other acute postprocedural pain | | Anxiety disorder, unspecified | | Nicotine dependence, unspecified, uncomplicated | | Alcohol abuse with intoxication, unspecified | | Allergy status to penicillin | | Unspecified abdominal pain | | | |September 23, 2018 [facility] [place] Emergency Chief Complaint: POST OP PROB/ABD PAIN | |August 28, 2018 [facility] | | Blood alcohol level of 240 mg/100 ml or more | | Alcohol abuse with intoxication, unspecified | | Suicidal ideations | | Nicotine dependence, unspecified, uncomplicated | | Major depressive disorder, single episode, unspecified | | Post-traumatic stress disorder, unspecified | | Other m[facility] (current) 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 | | Anxiety disorder, unspecified | | Allergy status to penicillin | | | |[facility] [place] [facility] | | Nicotine dependence, unspecified, uncomplicated | | Contusion of other part of head, initial encounter | | Alcohol abuse with intoxication, unspecified | | Allergy status to penicillin | | Anxiety disorder, unspecified | | Other meterman (current) 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 | | Headache | | Major depressive disorder, single episode, unspecified | | Post-traumatic stress disorder, unspecified | | Polyneuropathy, unspecified | | | | | | | |Recent Inpatient Visit Summary | |Date Facility City State Type Diagnoses or Chief Complaint | |[facility] 23, [facility] [place] [facility] | | Anxiety disorder, unspecified | | Adverse effect of other antiepileptic and sedative-hypnotic drugs, initial encounter | | Peritoneal abscess | | Allergy status to penicillin | | Alcohol dependence with withdrawal, unspecified | | Major depressive disorder, single episode, unspecified | | Other acute postprocedural pain | | Acquired absence of both cervix and uterus | | Nicotine dependence, cigarettes, uncomplicated | | Unspecified abdominal pain | | | | | | | |Care Team | |Provider PRC Type Phone Fax Service Dates | |ANNY JREOME M.D. Family Medicine Jul 08, 2018 - Current | | | |[employer] Portal | |This patient has registered at the [facility] | |For more information visit: [email or web address] | |PLEASE NOTE: | | 1. Any care recommendations and other clinical information are provided as guidelines or for historical purposes only, and providers should exercise their own clinical judgment whe n providing care. | | 2. You may only use this information for purposes of treatment, payment or health care o perations activities, and subject to the limitations of applicable [employer] Policies. | | 3. You should consult directly with the organization that provided a care guideline or o ther clinical history with any questions about additional information or accuracy or complet eness of information provided. | | | |? 2019 [email or web address]. - [email or web address] | + + + + + + + | Performing | Address | City/State/Zipcode | Phone Number | | Organization | | | | + + + + + | [facility] | [address], | [place], [place] | [phone] | | [employer] | [address] | [address] | | + + + + + BG-LAC,POC ISTAT (10/31/2018 3:12 PM PDT) + +---------+ + + + | Component | Value | Ref Range | Performed | Pathologist | | | | | At | Signature | + +---------+ + + + | TOTAL CO2 | 31 (H) | 23 - 29 mmol/L | [facility] - | | | ANUSHA, POC | | | [place] | | | | | | [facility] | | | | | | OF CARE | | | | | | TESTS | | + +---------+ + + + | PH VENOUS, | 7.42 | 7.35 - 7.45 | [facility] - | | | POC | | | [place] | | | | | | [facility] | | | | | | OF CARE | | | | | | TESTS | | + +---------+ + + + | PCO2 | 45 | 35 - 50 mmHg | [facility] - | | | VENOUS, POC | | | [place] | | | | | | [facility] | | | | | | OF CARE | | | | | | TESTS | | + +---------+ + + + | HCO3 | 30 (H) | 22 - 28 mmol/L | [facility] - | | | VENOUS, POC | | | [place] | | | | | | [facility] | | | | | | OF CARE | | | | | | TESTS | | + +---------+ + + + | PO2 VENOUS, | <41 (L) | 30 - 55 mmHg | [facility] - | | | POC | | | [place] | | | | | | [facility] | | | | | | OF CARE | | | | | | TESTS | | + +---------+ + + + | O2 SAT | 37 | 95 - 98 % | [facility] - | | | VENOUS, POC | | | [place] | | | | | | [facility] | | | | | | OF CARE | | | | | | TESTS | | + +---------+ + + + | LACTATE | 1.4 | 0.5 - 2.0 | [facility] - | | | VENOUS, POC | | mmol/L | [facility] | | | | | | [facility] | | | | | | OF CARE | | | | | | TESTS | | + +---------+ + + + | PAT TEMP | 96.6 | | [facility] - | | | VENOUS,POC | | | [place] | | | | | | [facility] | | | | | | OF CARE | | | | | | TESTS | | + +---------+ + + + | BASE EXCESS | 5.0 | -2 - 3 mmol/L | [facility] - | | | ANUSHA, POC | | | [place] | | | | | | TONYA TRNA | | | | | | OF CARE | | | | | | TESTS | | + +---------+ + + + + + | Specimen | + + | | + + + + + + + | Performing | Address | City/State/Zipcode | Phone Number | | Organization | | | | + + + + + | [facility] | [address] | [place], [place] | | | [facility] | [address] | [address] | | | TESTS | | | | + + + + + RAINBOW HOLD TUBE - RED TOP (10/31/2018 2:47 PM PDT) + + | Specimen | + + | Blood - Blood | | (substance) | + + + + + + + | Performing | Address | City/State/Zipcode | Phone Number | | Organization | | | | + + + + + | [facility] | [address] | [place] [address] | | | [facility] | [address] | | | + + + + + RAINBOW HOLD TUBE - BLUE TOP (10/31/2018 2:47 PM PDT) + + | Specimen | + + | Blood - Blood | | (substance) | + + + + + + + | Performing | Address | City/State/Zipcode | Phone Number | | Organization | | | | + + + + + | [facility] | [address] | [place] [address] | | | [place] [facility] | [address] | | | + + + + + CBC (HEMOGRAM) ONLY (10/31/2018 2:47 PM PDT) + + + + + + | Component | Value | Ref Range | Performed | Pathologist | | | | | At | Signature | + + + + + + | WHITE CELL | 3.89 | 3.50 - 10.80 | [facility] | | | COUNT | | K/cu mm | LABORATORY | | | | | | SERVICES, | | | | | | CORE | | + + + + + + | RED CELL | 3.51 (L) | 4.00 - 5.20 | [facility] | | | COUNT | | M/cu mm | LABORATORY | | | | | | SERVICES, | | | | | | CORE | | + + + + + + | HEMOGLOBIN | 9.6 (L) | 12.0 - 16.0 | [facility] | | | | | g/dL | LABORATORY | | | | | | SERVICES, | | | | | | CORE | | + + + + + + | HEMATOCRIT | 31.0 (L) | 36.0 - 46.0 % | [facility] | | | | | | LABORATORY | | | | | | SERVICES, | | | | | | CORE | | + + + + + + | MCV | 88.3 | 80.0 - 100.0 fL | [facility] | | | | | | LABORATORY | | | | | | SERVICES, | | | | | | CORE | | + + + + + + | MCHC | 31.0 (L) | 32.0 - 36.0 | [facility] | | | | | g/dL | LABORATORY | | | | | | SERVICES, | | | | | | CORE | | + + + + + + | RDW SD | 49.7 (H) | 35.1 - 46.3 fL | [facility] | | | | | | LABORATORY | | | | | | SERVICES, | | | | | | CORE | | + + + + + + | PLATELET | 61 (L) | 150 - 400 K/cu | [facility] | | | COUNT | | mm | LABORATORY | | | | | | SERVICES, | | | | | | CORE | | + + + + + + | MPV | 11.6 | 9.7 - 12.3 fL | [facility] | | | | | | LABORATORY | | | | | | SERVICES, | | | | | | CORE | | + + + + + + | NRBC% | 0.0 | 0.0 - 0.3 % | [facility] | | | | | | LABORATORY | | | | | | SERVICES, | | | | | | CORE | | + + + + + + | NRBC# | 0.00 | 0.00 - 0.02 | [facility] | | | | | K/cu mm | LABORATORY | | | | | | SERVICES, | | | | | | CORE | | + + + + + + + + | Specimen | + + | Blood - Blood | | (substance) | + + + + + + + | Performing | Address | City/State/Zipcode | Phone Number | | Organization | | | | + + + + + | [facility] | [address] | [place] [address] | | | SERVICES, CORE | [address] | | | + + + + + BLOOD BANK HOLD TUBE - DON T PROCESS (10/31/2018 2:47 PM PDT) + + + + + + | Component | Value | Ref Range | Performed | Pathologist | | | | | At | Signature | + + + + + + | SPECIMEN | Sample received with | | [facility] | | | COLLECTED, | adeq label/volume to | | LABORATORY | | | HELD | process | | SERVICES, | | | | | | TRANSFUSION | | | | | | MEDICINE | | + + + + + + + + | Specimen | + + | Blood - Blood | | (substance) | + + + + + + + | Performing | Address | City/State/Zipcode | Phone Number | | Organization | | | | + + + + + | [facility] | [address] | [place] [address] | | | SERVICES, | [address] | | | | TRANSFUSION MEDICINE | | | | + + + + + ETHANOL (ALCOHOL), BLOOD (10/31/2018 2:47 PM PDT) + +-------+ + + + | Component | Value | Ref Range | Performed | Pathologist | | | | | At | Signature | + +-------+ + + + | ETHANOL | <10 | <10 mg/dL | [facility] | | | (ALCOHOL) | | | LABORATORY | | | | | | SERVICES, | | | | | | CORE | | + +-------+ + + + + + | Specimen | + + | Blood - Blood | | (substance) | + + + + + + + | Performing | Address | City/State/Zipcode | Phone Number | | Organization | | | | + + + + + | [facility] | [address] | [place] [address] | | | SERVICES, CORE | [address] | | | + + + + + GLUCOSE, PLASMA (10/31/2018 2:47 PM PDT) + +-------+ + + + | Component | Value | Ref Range | Performed | Pathologist | | | | | At | Signature | + +-------+ + + + | GLUCOSE, | 89 | 70 - 99 mg/dL | [facility] | | | PLASMA | | | LABORATORY | | | (LAB) | | | SERVICES, | | | | | | CORE | | + +-------+ + + + + + | Specimen | + + | Blood - Blood | | (substance) | + + + + + + + | Performing | Address | City/State/Zipcode | Phone Number | | Organization | | | | + + + + + | [facility] | [address] | [place] [address] | | | SERVICES, CORE | [address] | | | + + + + + LIVER SET (AST,ALT,BILI TOTAL,BILI DIRECT,ALK PHOS,ALB,PROT TOTAL) (10/31/2018 2:47 PM PDT ) + +---------+ + + + | Component | Value | Ref Range | Performed | Pathologist | | | | | At | Signature | + +---------+ + + + | ALBUMIN, | 3.1 (L) | 3.5 - 4.7 g/dL | [facility] | | | PLASMA | | | LABORATORY | | | (LAB) | | | SERVICES, | | | | | | CORE | | + +---------+ + + + | BILIRUBIN | 0.6 | 0.3 - 1.2 mg/dL | [facility] | | | TOTAL | | | LABORATORY | | | | | | SERVICES, | | | | | | CORE | | + +---------+ + + + | BILIRUBIN | 0.2 | 0.0 - 0.3 mg/dL | [facility] | | | DIRECT | | | LABORATORY | | | | | | SERVICES, | | | | | | CORE | | + +---------+ + + + | ALK PHOS | 133 (H) | 42 - 98 U/L | [facility] | | | | | | LABORATORY | | | | | | SERVICES, | | | | | | CORE | | + +---------+ + + + | AST(SGOT) | 231 (H) | <=41 U/L | [facility] | | | | | | LABORATORY | | | | | | SERVICES, | | | | | | CORE | | + +---------+ + + + | ALT (SGPT) | 79 (H) | <=60 U/L | [facility] | | | | | | LABORATORY | | | | | | SERVICES, | | | | | | CORE | | + +---------+ + + + | TOTAL | 8.7 (H) | 6.4 - 8.2 g/dL | [facility] | | | PROTEIN, | | | LABORATORY | | | PLASMA | | | SERVICES, | | | (LAB) | | | CORE | | + +---------+ + + + | AST CMNT | No Hemo | | [facility] | | | | | | LABORATORY | | | | | | SERVICES, | | | | | | CORE | | + +---------+ + + + | BILI T CMNT | No Hemo | | [facility] | | | | | | LABORATORY | | | | | | SERVICES, | | | | | | CORE | | + +---------+ + + + | KING Yepez CMNT | No Hemo | | [facility] | | | | | | LABORATORY | | | | | | SERVICES, | | | | | | CORE | | + +---------+ + + + + + | Specimen | + + | Blood - Blood | | (substance) | + + + + + + + | Performing | Address | City/State/Zipcode | Phone Number | | Organization | | | | + + + + + | [facility] | [address] | [place] [address] | | | SERVICES, CORE | [address] | | | + + + + + documented in this encounter Visit Diagnoses + + | Diagnosis | + + | SAH (subarachnoid hemorrhage) (HCC) - Primary Subarachnoid hemorrhage | + + | Fall from ground level | + + | Neck pain Cervicalgia | + + documented in this encounter Administered Medications + +--------+ + +------+------+ | Medication Order | MAR | Action | Dose | Rate | Site | | | Action | Date | | | | + +--------+ + +------+------+ | acetaminophen (TYLENOL) tablet | Given | 11/01/19 | 1,000 mg | | | | 1,000 mg 1,000 mg, oral, ONCE, 1 | | 19 5:11 | | | | | dose, [facility] 10/31/18 at 1715 | | PM PDT | | | | + +--------+ + +------+------+ +---+---+ | | | +---+---+ + +-------+ + +---+---+ | bacitracin-polymyxin B | Given | 11/02/19 | 1 packet | | | | (POLYSPORIN) 500-10,000 unit/gram | | 19 10:39 | | | | | packet 1 packet 1 packet (1 g), | | AM PDT | | | | | topical, TWICE DAILY, First dose | | | | | | | on Sun10/31/18 at 2100, Until | | | | | | | Discontinued | | | | | | + +-------+ + +---+---+ +-------+ + +---+---+ | Given | 11/01/19 | 1 packet | | | | | 19 9:03 | | | | | | PM PDT | | | | +-------+ + +---+---+ +---+---+ | | | +---+---+ + +-------+ +--------+---+---+ | buPROPion XL (WELLBUTRIN-XL) | Given | 11/01/19 | 300 mg | | | | tablet 300 mg 300 mg, oral, AT | | 19 9:03 | | | | | BEDTIME, First dose on Sun10/31/18 | | PM PDT | | | | | at 2200, Until Discontinued | | | | | | + +-------+ +--------+---+---+ +---+---+ | | | +---+---+ + +-------+ +-------+---+---+ | chlordiazePOXIDE (LIBRIUM) | Given | 11/02/19 | 25 mg | | | | capsule 25 mg 25 mg, oral, ONCE, | | 19 10:33 | | | | | 1 dose, [facility] 11/01/18 at 1045 | | AM PDT | | | | + +-------+ +-------+---+---+ +---+---+ | | | +---+---+ + +-------+ +------+---+---+ | folic acid (FOLVITE) tablet 1 | Given | 11/02/19 | 1 mg | | | | mg 1 mg, oral, DAILY, 3 doses, | | 19 8:20 | | | | | First dose on [facility] 10/31/18 at 1800, | | AM PDT | | | | | Last dose on [facility] 11/02/18 at 0900 | | | | | | + +-------+ +------+---+---+ +-------+ +------+---+---+ | Given | 11/01/19 | 1 mg | | | | | 19 8:03 | | | | | | PM PDT | | | | +-------+ +------+---+---+ +---+---+ | | | +---+---+ + +-------+ +--------+---+---+ | gabapentin (NEURONTIN) capsule | Given | 11/02/19 | 300 mg | | | | 300 mg 300 mg, oral, THREE TIMES | | 19 8:19 | | | | | DAILY, First dose on Sun10/31/18 | | AM PDT | | | | | at 2200, Until Discontinued | | | | | | + +-------+ +--------+---+---+ +-------+ +--------+---+---+ | Given | 11/01/19 | 300 mg | | | | | 19 9:03 | | | | | | PM PDT | | | | +-------+ +--------+---+---+ + +---+ | | | + +---+ | HYDROcodone-acetaminophen | | | (NORCO) 5-325 mg tablet 1 tablet | | | 1 tablet, oral, EVERY 4 HOURS | | | NEEDED, Starting Sun10/31/18 at | | | 1845, Until Sun11/01/18 at 1820, | | | moderate pain | | + +---+ | | | + +---+ + +-------+ +------+---+---+ | LORazepam (ATIVAN) tablet 0.5-3 | Given | 11/02/19 | 1 mg | | | | mg 0.5-3 mg, oral, NEEDED, | | 19 3:47 | | | | | Starting Sun10/31/18 at 1745, | | AM PDT | | | | | Until Sun11/01/18 at 1015, [facility] | | | | | | | protocol | | | | | | + +-------+ +------+---+---+ +---+---+ | | | +---+---+ + +-------+ + +---+---+ | multivitamin (THERA VITAMIN) 1 | Given | 11/02/19 | 1 tablet | | | | tablet 1 tablet, oral, DAILY, 3 | | 19 8:20 | | | | | doses, First dose on [facility] 10/31/18 | | AM PDT | | | | | at 1800, Last dose on Sun11/02/18 | | | | | | | at 0900 | | | | | | + +-------+ + +---+---+ +-------+ + +---+---+ | Given | 11/01/19 | 1 tablet | | | | | 19 8:03 | | | | | | PM PDT | | | | +-------+ + +---+---+ + +---+ | | | + +---+ | ondansetron (ZOFRAN) injection | | | 4 mg 4 mg, intravenous, EVERY 12 | | | HOURS NEEDED, Starting [facility] | | | 10/31/18 at 1747, Until Sun11/01/18 | | | at 1820, nausea/vomiting, first | | | line | | + +---+ | | | + +---+ + +-------+ +--------+---+---+ | potassium chloride (KLOR-CON) | Given | 11/02/19 | 20 mEq | | | | packet 20 mEq 20 mEq, oral, | | 19 8:21 | | | | | ONCE, 1 dose, Sun11/01/18 at 0800 | | AM PDT | | | | + +-------+ +--------+---+---+ +---+---+ | | | +---+---+ + +-------+ +-------+---+---+ | propranolol (INDERAL) tablet 20 | Given | 11/02/19 | 20 mg | | | | mg 20 mg, oral, THREE TIMES | | 19 8:20 | | | | | DAILY, First dose on Sun10/31/18 | | AM PDT | | | | | at 2200, Until Discontinued | | | | | | + +-------+ +-------+---+---+ +-------+ +-------+---+---+ | Given | 11/01/19 | 20 mg | | | | | 19 9:03 | | | | | | PM PDT | | | | +-------+ +-------+---+---+ + +---+ | | | + +---+ | senna-docusate (SENOKOT S) | | | 8.6-50 mg 2 tablet 2 tablet, | | | oral, TWICE DAILY, First dose on | | | [facility] 10/31/18 at 2100, Until | | | Discontinued | | + +---+ | | | + +---+ + +-------+ +--------+---+---+ | thiamine tablet 100 mg 100 mg, | Given | 11/02/19 | 100 mg | | | | oral, DAILY, 3 doses, First dose | | 19 8:20 | | | | | on [facility] 10/31/18 at 1800, Last dose | | AM PDT | | | | | on [facility] 11/02/18 at 0900 | | | | | | + +-------+ +--------+---+---+ +-------+ +--------+---+---+ | Given | 11/01/19 | 100 mg | | | | | 19 8:03 | | | | | | PM PDT | | | | +-------+ +--------+---+---+ +---+---+ | | | +---+---+ documented in this encounter
--- OUTSIDE RECORDS SUMMARY | ~2019-03-12 | XMS | Encounter Summary ---
Demographics + + + | Address | [address] | | | [place] [address] | + + + | Home Phone | | + + + | Preferred Language | Unknown | + + + | Marital Status | Single | + + + | Religion Affiliation | NRP | + + + | Race | White | + + + | Ethnic Group | Not or | + + + Author + + + | Author | [facility] | + + + | Organization | [facility] | + + + | Address | Unknown | + + + | Phone | Unavailable | + + + Support + + +---------+ + | Name | Relationship | Address | Phone | + + +---------+ + | Irina Tran | ECON | Unknown | | + + +---------+ + Care Team Providers + +------+ + | Care Auditor Medical Claims Name | Role | Phone | + [...] | | | | | Procedures | [address] | | | | | CONSULT TO | Shailesh Terrazas | Coco | | | | | SPINE | Maria Ines Leach | [facility] [place] | | | | | NEUROSURGERY | [place], [place] | [address] | | | | | | [address] | Phone: | | | | | | Phone: | [phone] | | | | | | [phone] | Fax: | | | | | | Fax: | [phone] | | | | | | [phone] | | + +--------+ + + + [...] + + | 10/31/ | Emergency | [facility] Emergency | Eliseo Liriano | | | 2019 - | | Department [address] | [place], [address] [facility] | | | | | [facility] | [facility] | | | 11/01/ | [facility] | [place], [place] | | | 2018 | | [place], [place] | [address] | | | | | [address] | [phone] | | | | | [phone] | | | | | | | Shreyas Yo NP | | | | | | [address] | | | | | | [facility] | | | | | | [place], [place] | | | | | | [address] | | | | | | [phone] | | | | | | | | | | | | Sathish Childs, | | | | | | ANP [address] | | | | | | [facility] | | | | | | [place], [place] | | | | | | [address] | | | | | | [phone] | | | | | | | [...] of Discharge: 11/01/2018 Primary Care Provider: Anny Jermoe MD ED Obs Provider: ALAN MCWILLIAMS Chief Complaint: Trauma Final Diagnoses: I60.9 SAH (subarachnoid hemorrhage) (HCC) W18.30XA Fall from ground level Brief HPI: "Lisha Mendosa is a 38 y.o. female with anxiety, depression, and alcoholism (hx one alcohol withdrawal seizure in 2017) who presented to the ED for evaluation of syncope, as a modifie d trauma transfer from outside hospital ([place]). Lisha Mendosa reports taking 25mg dose of hydroxyzine this morning and then going to the [facility] to purchase beer. She had a [...] given TDAP, and then transp orted to [facility] via helicopter. Followed by [facility], scheduled for a procedure on 11/07/2018, [...] is now living alone in a town ([place], [place]) where she doesn't know anyone, feel s socially isolated, and feels anxious leaving her home, particularly with driving. She has severe anxiety with driving generally, which is likely why, she states, she took hydroxyzine in order to help her get to the store today." - Shreyas Yo, SALESPERSON DRIVER Interval hx: at 10:35 on 11/01, pt [...] was initiated which included: CT head at [facility] in [place]: "extremely large scalp hematoma along the right parietal region" "streak of subarachnoid hemorrhage, deep to the large scalp hematoma, within the parietal l obe. It measures approximately 25mm transversely, 5mm AP, and 7mm craniocaudally." CT c-spine at [facility] in [place]: "The images demonstrate normal alignment with no [...] Test, a normal Cerebellar Exam, a normal Uisjpn-Djhb-Cawqeg Test, a normal Heel to Ramos Test, [...] up in outpatient spine clinic Please call [phone] - Strict instructions to return to ED [...] willing to accept help/detox - please contact [facility] ([phone]) and request an assessment in the ED. Best contact is Radha gaviria." # Right hydronephrosis, complication of hysterectomy on 09/14/2018 -Follow up with [facility] as planned in 1-2 weeks -Urinalysis [...] Dear Lisha, Thank you for choosing the [facility] for your healthcare. You we re [...] substances. Thank you again for choosing the [facility] for your healthcare. We look forward to serving you again. Sincerely, Sathish Childs, SALESPERSON DRIVER, MPH [facility] Emergency Department If at any point you would like to schedule an appointment to establish with a new primary c are provider, please feel free to call: [facility] Family Medicine clinic: [phone] [facility] Internal Medicine clinic: [phone] [facility] Clinics: [phone] [facility] Clinics: [phone] [facility] Medical Information and Referral: [phone] Physical Exam AttachmentsThe following attachments cannot be sent through Care Everywhere.Subarachnoid He morrhage: General Info (Peruvian)Lacerations: Zeyad (Peruvian)Hydronephrosis: General Info ( Peruvian)Fainting (Peruvian)Alcohol Use Disorder: General Info (Peruvian)chlordiazepoxide (Engl lemuel)Alcohol Withdrawal: General Info (Peruvian)documented in this encounter Medications at Time of [...] [facility] | [address] | [place] [address] | | | SERVICES, CORE | [address] [...] | | | LABORATORY | | | SAMOAN | | | SERVICES, | | | [...] | + + + + + | [facility] | [address] | [place] [address] | | | SERVICES, [facility] | [address] | | | + [...] | + + + + + | [facility] | [address] [facility] | [place] [address] | | | SERVICES, [place] | [address] | | | + + + + + ED INFORMATION EXCHANGE (10/31/2018 4:11 PM PDT) + + | Specimen | + + | | + + + + + | Narrative | Performed At | + + + | [facility]?NOTIFICATION?10/31/2018 14:45?LISHA MENDOSA?MRN: | [facility] | | [id number] Criteria Met 5 Visits In 12 Months Has | MEDICAL | | Guidelines Security and Safety Date Location Type Specifics | TECHNOLOGIES | | 10/06/18 3:06 PM [facility] Elopement Other | | | Details: PATIENT LEFT AMA. IRIS CREATED. Security Events (18 | | | Mo.) Count Elopement 1 Total 1 ED Care Guidelines from | | | Odilon - Jone Last Updated: 08/26/18 9:42 AM Care | | | Coordination: Currently engaged in mental health services with | | | [facility].? Please contact [facility] with mental health concerns.? | | | Andrey/Prasanna Clements:? [phone]? Shayy:? [phone]. | | | These are guidelines and the provider should exercise clinical | | | judgment when providing care. Care History Medical/Surgical | | | 10/16/18 12:00 AM [facility] PATIENT CAN BE | | | DIRECTED TO A MAXILLOFACIAL SURGEON THROUGH [facility] IF | | | PATIENT WOULD LIKE SOME OUTPATIENT RESOURCES FOR AandD SERVICES AND OR | | | MENTAL HEALTH HELP. MAXILLOFACIAL SURGEON WOULD HAVE TO HAVE AN | | | AUTHORIZATION BEFORE SERVICES rendered- [phone] IS BEST CONTACT | | | NUMBER. 07/08/18 12:00 AM [facility] | | | PATIENT HAS AN APT WITH DR JEROME ON 10/15/18. Patient is | | | currently established with [facility]. If patient is seen in | | | the ED during business hours. Please contact CHWs at [facility] | | | Clinic. Care Recommendation: This [...] care. 05/06/18 12:00 AM | | | [facility] CHW CALLED PATIENT- PATIENT | | | VOICEMAIL BOX IS FULL CAN'T LEAVE A MESSAGE FOR A CALL BACK- IF | | | PATIENT IS WILLING TO ACCEPT HELP/DETOX- PLEASE CONTACT [facility] | | | SERVICES [phone] AND REQUEST AN ASSESSMENT IN THE ED. BEST | | | CONTACT IS RADHA WORLEY. Prescription Drug Report | | | (12 Mo.) Unable to determine if a PDMP report exists, because an | | | error response was received from PDMP. E.D. Visit Count (12 | | | mo.) Facility Visits [facility] 1 [facility] | | | [facility] 14 Total 15 Note: Visits indicate total known | | | visits. Recent Emergency Department Visit Summary Showing 10 | | | most recent visits out of 15 in the past 12 months Date Facility City | | | State Type Diagnoses or Chief Complaint Oct [facility], 2018 [facility] | | | [facility] [place] Emergency 10,151. traumatic | | | sub dural 18,400. Fall on same level, unspecified, initial | | | encounter 18,400. Nontraumatic subarachnoid hemorrhage, | | | unspecified Oct 31, 2018 [facility] [place] Emergency | | | Chief Complaint: POSS SEIZURE/HEAD INJURY Oct 15, 2018 [facility] [place]. | | | [facility] Emergency Major depressive disorder, | | | single episode, unspecified Nicotine dependence, unspecified, | | | uncomplicated Other skilled nursing (current) 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 | | | Post-traumatic stress disorder, unspecified Alcohol abuse with | | | intoxication, unspecified Allergy status to penicillin | | | Anxiety disorder, unspecified Blood alcohol level of 240 mg/100 | | | ml or more Oct 06, 2018 [facility] 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 Emergency Other | | | chronic pain Alcohol abuse, uncomplicated Anxiety | | | disorder, unspecified Major depressive disorder, single episode, | | | unspecified Pelvic and perineal pain Other skilled nursing | | | (current) 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 Allergy status to penicillin | | | Acquired absence of both cervix and uterus Nicotine dependence, | | | unspecified, uncomplicated Oct 03, 2018 [facility] [place] | | | [place] Emergency Allergy status to penicillin Major | | | depressive disorder, single episode, unspecified Abnormal | | | uterine and vaginal bleeding, unspecified Other acute | | | postprocedural pain Anxiety disorder, unspecified Urinary | | | tract infection, site not specified Other nuclear pharmacist (current) | | | 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 Polyneuropathy, unspecified Postprocedural | | | hemorrhage of a genitourinary system organ or structure following a | | | genitourinary system procedure Nicotine dependence, unspecified, | | | uncomplicated Oct 01, [address] [facility] [address] [place] [place] Emergency | | | Low back pain Other skilled nursing (current) 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 | | | Urinary tract infection, site not specified Major depressive | | | disorder, single episode, unspecified Other acute postprocedural | | | pain Anxiety disorder, unspecified Nicotine dependence, | | | unspecified, uncomplicated Alcohol abuse with intoxication, | | | unspecified Allergy status to penicillin Unspecified | | | abdominal pain September 23, [address] [facility] [address] [place] [place] | | | Emergency Chief Complaint: POST OP PROB/ABD PAIN August 28, 2018 | | | [facility] [place] [place] Emergency Blood alcohol level of | | | 240 mg/100 ml or more Alcohol abuse with intoxication, | | | unspecified Suicidal ideations Nicotine dependence, | | | unspecified, uncomplicated Major depressive disorder, single | | | episode, unspecified Post-traumatic stress disorder, unspecified | | | Other nuclear pharmacist (current) 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 Anxiety disorder, | | | unspecified Allergy status to penicillin Aug 25, 2018 [facility] | | | [place] Emergency Nicotine dependence, | | | unspecified, uncomplicated Contusion of other part of head, | | | initial encounter Alcohol abuse with intoxication, unspecified | | | Allergy status to penicillin Anxiety disorder, unspecified | | | Other skilled nursing (current) 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 Headache | | | [...] Dates ANNY JEROME, | | | [facility] Jul 08, 2018 - | | | Current OnFarm Portal This patient has registered at the | | | [facility] Emergency Department For more | | | information visit: | | | [email or web address] | | | [email or web address] PLEASE NOTE: 1. [...] or completeness of information provided. ? 2019 [employer] | | | [employer]. - [email or web address] | | + + + + + [...] 1 Total 1 ED [facility] | | Updated: 08/26/18 9:42 AM Care Coordination:Currently engaged in mental health services | | with [facility].? Please contact [facility] with mental health concerns.? Andrey/Prasanna | | Tyree:? [phone]? Shayy:? [phone].These are guidelines and the provider | | should exercise clinical judgment when providing care.Care | | HistoryMedical/Surgical10/16/18 12:00 AM [facility] PATIENT CAN BE | | DIRECTED TO A MAXILLOFACIAL SURGEON THROUGH [facility] IF PATIENT WOULD LIKE SOME | | OUTPATIENT RESOURCES FOR AandD SERVICES AND OR MENTAL HEALTH HELP. MAXILLOFACIAL SURGEON WOULD | | HAVE TO HAVE AN AUTHORIZATION BEFORE SERVICES rendered- [phone] IS BEST CONTACT | | NUMBER.07/08/18 12:00 AM [facility] PATIENT HAS AN APT WITH DR JEROME ON | | 10/15/18. Patient is currently established with [facility]. If patient is seen | | in the ED during business hours. Please contact CHWs at [facility].Care | | Recommendation:This patient has had 5 [...] when | | providing care.05/06/18 12:00 AM [facility] CHW CALLED PATIENT- PATIENT | | VOICEMAIL BOX IS FULL CAN'T LEAVE A MESSAGE FOR A CALL BACK- IF PATIENT IS WILLING TO | | ACCEPT HELP/DETOX- [facility] [phone] AND REQUEST AN | | ASSESSMENT IN THE ED. BEST CONTACT IS RADHA WORLEY.Prescription Drug Report (12 | | Mo.)Unable to determine if a PDMP report exists, because an error response was received | | from PDMP.E.D. Visit Count (12 mo.)Facility Visits [facility] | | 1 [facility] 14 Total 15 Note: Visits indicate total known visits. Recent | | Emergency Department Visit SummaryShowing 10 most recent visits out of 15 in the past | | 12 monthsDate Facility City State Type Diagnoses or Chief Complaint Oct 31, 2018 [place] | | [facility]. [place] Emergency 10,151. traumatic sub dural | | 18,400. Fall on same level, unspecified, initial encounter 18,400. Nontraumatic | | subarachnoid hemorrhage, unspecified Oct 31, 2018 [facility] [place] Emergency | | Chief Complaint: POSS SEIZURE/HEAD INJURY Oct 15, 2018 [facility] [place] | | Emergency Major depressive disorder, single episode, unspecified Nicotine | | dependence, unspecified, uncomplicated Other nuclear pharmacist (current) 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 | | Post-traumatic stress disorder, unspecified Alcohol abuse with intoxication, | | unspecified Allergy status to penicillin Anxiety disorder, unspecified Blood | | alcohol level of 240 mg/100 ml or more Oct 06, 2018 [facility] [place] | | Emergency Anxiety disorder, unspecified Acquired absence of both cervix and uterus | | Pelvic and perineal pain Allergy status to penicillin Unspecified | | hydronephrosis Major depressive disorder, single episode, unspecified Other long | | term (current) 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 Nicotine dependence, unspecified, uncomplicated | | Alcohol dependence, uncomplicated Polyneuropathy, unspecified Oct 05, [address] [facility] [address] | | [facility] [place] Emergency Other chronic pain Alcohol abuse, uncomplicated | | Anxiety disorder, unspecified Major depressive disorder, single episode, unspecified | | Pelvic and perineal pain Other skilled nursing (current) 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 Allergy status | | to penicillin Acquired absence of both cervix and uterus Nicotine dependence, | | unspecified, uncomplicated Oct 03, 2018 [facility] [place] Emergency | | Allergy status to penicillin Major depressive disorder, single episode, unspecified | | Abnormal uterine and vaginal bleeding, unspecified Other acute postprocedural pain | | Anxiety disorder, unspecified Urinary tract infection, site not specified Other | | skilled nursing (current) 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 Polyneuropathy, unspecified Postprocedural | | hemorrhage of a genitourinary system organ or structure following a genitourinary system | | procedure Nicotine dependence, unspecified, uncomplicated Oct 01, [address] [facility] [address] | | [facility] [facility] [place] Emergency Low back pain Other nuclear pharmacist (current) drug | | therapy Urinary tract infection, site not specified Major depressive disorder, | | single episode, unspecified Other acute postprocedural pain Anxiety disorder, | | unspecified Nicotine dependence, unspecified, uncomplicated Alcohol abuse with | | intoxication, unspecified Allergy status to penicillin Unspecified abdominal pain | | September 23, 2018 [facility] [place] Emergency Chief Complaint: POST OP PROB/ABD | | PAIN August 28, 2018 [facility] [place] [place] Emergency Blood alcohol level of 240 | | mg/100 ml or more Alcohol abuse with intoxication, unspecified Suicidal ideations | | Nicotine dependence, unspecified, uncomplicated Major depressive disorder, single | | episode, unspecified Post-traumatic stress disorder, unspecified Other nuclear pharmacist | | (current) 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 Anxiety disorder, unspecified Allergy status to penicillin | | Aug 25, 2018 [facility] [place] Emergency Nicotine dependence, | | unspecified, uncomplicated Contusion of other part of head, initial encounter | | Alcohol abuse with intoxication, unspecified Allergy status to penicillin Anxiety | | disorder, unspecified Other skilled nursing (current) 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 Headache Major | | depressive disorder, single episode, unspecified Post-traumatic stress disorder, | | unspecified Polyneuropathy, unspecified Recent Inpatient Visit SummaryDate Facility | | [facility] State Type Diagnoses or Chief Complaint September 23, 2018 [facility] [place] | | Critical Care [...] | | Unspecified abdominal pain Care TeamProvider [facility] Type Phone Fax Service Dates [facility], | | Malathi MCCORMICK. Family Medicine Jul 08, 2018 - Current | | [facility] PortalThis patient has registered at the [facility] | | Emergency Department For more information visit: | | [email or web address] PLEASE | | NOTE: 1. Any care [...] completeness of information | | provided.? 2019 [employer] - [email or web address] | |Oct 05, [address] [facility] [address] [facility] Emergency | | Other chronic pain | | Alcohol abuse, uncomplicated | | Anxiety disorder, unspecified | | Major depressive disorder, single episode, unspecified | | Pelvic and perineal pain | | Other nuclear pharmacist (current) 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 | | Allergy status to penicillin | | Acquired absence of both cervix and uterus | | Nicotine dependence, unspecified, uncomplicated | | | |Oct 03, 2018 [facility] [place] Emergency | | Allergy status to penicillin | | Major depressive disorder, single episode, unspecified | | Abnormal uterine and vaginal bleeding, unspecified | | Other acute postprocedural pain | | Anxiety disorder, unspecified | | Urinary tract infection, site not specified | | Other skilled nursing (current) 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 | | Polyneuropathy, unspecified | | Postprocedural hemorrhage of a genitourinary system organ or structure following a genit ourinary system procedure | | Nicotine dependence, unspecified, uncomplicated | | | |Oct 01, 2018 [facility] [place] Emergency | | Low back pain | | Other skilled nursing (current) 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 | | Urinary tract infection, site not specified | | Major depressive disorder, single episode, unspecified | | Other acute postprocedural pain | | Anxiety disorder, unspecified | | Nicotine dependence, unspecified, uncomplicated | | Alcohol abuse with intoxication, unspecified | | Allergy status to penicillin | | Unspecified abdominal pain | | | |September 23, 2018 [facility] [place] Emergency Chief Complaint: POST OP PROB/ABD PAIN | |August 28, 2018 [facility] [place] [place] [facility] | | Blood alcohol level of 240 mg/100 ml or more | | Alcohol abuse with intoxication, unspecified | | Suicidal ideations | | Nicotine dependence, unspecified, uncomplicated | | Major depressive disorder, single episode, unspecified | | Post-traumatic stress disorder, unspecified | | Other skilled nursing (current) 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 | | Anxiety disorder, unspecified | | Allergy status to penicillin | | | |Aug 25, 2018 [facility] [place] [place] Emergency | | Nicotine dependence, unspecified, uncomplicated | | Contusion of other part of head, initial encounter | | Alcohol abuse with intoxication, unspecified | | Allergy status to penicillin | | Anxiety disorder, unspecified | | Other nuclear pharmacist (current) 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 | | Headache | | Major depressive disorder, single episode, unspecified | | Post-traumatic stress disorder, unspecified | | Polyneuropathy, unspecified | | | | | | | |Recent Inpatient Visit Summary | |Date Facility City State Type Diagnoses or Chief Complaint | |September 23, 2018 [facility] [place] [place] Critical Care | | [...] Type Phone Fax Service Dates | |ANNY JEROME M.D. Family Medicine Jul 08, 2018 - Current | | | |On[facility]arm Portal | |This patient has registered at the [facility] [place] t | |For more information visit: [email or web address] | |PLEASE NOTE: | | 1. Any care recommendations and other clinical information are provided as guidelines or for historical purposes only, and providers should exercise their own clinical judgment whe n providing care. | | 2. You may only use this information for purposes of treatment, payment or health care o perations activities, and subject to the limitations of applicable OnFarm Policies. | | 3. You should consult directly with the organization that provided a care guideline or o ther clinical history with any questions about additional information or accuracy or complet eness of information provided. | | | |? 2019 [employer]. - [email or web address] | + + + + + + + | Performing | Address | City/State/Zipcode | Phone Number | | Organization | | | | + + + + + | [facility] | [address], | [place], [place] | [phone] | | TECHNOLOGIES | [address] | [address] | | + + + + + BG-LAC,POC ISTAT (10/31/2018 3:12 PM PDT) + +---------+ + + + | Component | Value | Ref Range | Performed | Pathologist | | | | | At | Signature | + +---------+ + + + | TOTAL CO2 | 31 (H) | 23 - 29 mmol/L | [facility] - | | | [facility], POC | | | [facility] | | | | | | TONYA TRAN | | | | | | OF CARE | | | | | | TESTS | | + +---------+ + + + | PH VENOUS, | 7.42 | 7.35 - 7.45 | [facility] - | | | POC | | | [facility] | | | | | | TOYNA TRAN | | | | | | [...] JAEGER | [address] | [place], [place] | | | [facility] | [address] | [address] | | | TESTS | | | [...] | + + + + + | [facility] | [address] | [place] [address] | | | GERALD SCHULTZ | [address]IA [...] | + + + + + | [facility] | [address] | [place] [address] | | | GERALD SCHULTZ | MARIA [...] | + + + + + | Locality | [address] | [place] [address] | | | SERVICES, CORE | MARIA [...] | + + + + + | [facility] | [address] | [place] [address] | | | SERVICES, | [address] [...] [facility] | [address] | [place] [place] [address] | | | SERVICES, CORE | PARK [...] | + + + + + | [facility] | [address] | [place] [address] | | | SERVICES, CORE | MARIA [...] [facility] | [address] | [place] [address] | | | SERVICES, CORE | PARK [...] 5:11 | | | | | dose, [facility] 10/31/18 at 1715 | | PM [...] | | | | | 1 dose, [facility] 11/01/18 at 1045 | | AM PDT | | | | + +-------+ +-------+---+---+ +---+---+ | | | +---+---+ + +-------+ +------+---+---+ | folic acid (FOLVITE) tablet 1 | Given | 11/02/19 | 1 mg | | | | mg 1 mg, oral, DAILY, 3 doses, | | 19 8:20 | | | | | First dose on [facility] 10/31/18 at 1800, | | AM PDT | | | | | Last dose on [facility] 11/02/18 at 0900 | | | [...] DAILY, First dose on | | | [facility] 10/31/18 at 2100, Until | | [...] PDT | | | | | on [facility] 11/02/18 at 0900 | | | | | | + +-------+ +--------+---+---+ +-------+ +--------+---+---+ | Given | 11/01/19 | 100 mg | | | | | 19 8:03 | | | | | | PM PDT | | | | +-------+ +--------+---+---+ +---+---+ | | | +---+---+ documented in this encounter
--- OUTSIDE RECORDS SUMMARY | ~2019-03-12 | XMS | Encounter Summary ---
Demographics + + + | Address | [address] | | | [place] [address] | + + + | Home Phone | | + + + | Preferred Language | Unknown | + + + | Marital Status | Single | + + + | Mu-Ism Affiliation | NRP | + + + [...] Team Providers + +------+ + | Care Dust Collector Name | Role | Phone | + [...] | | | | | [place] Ko[place], | | | | | | [place] [address] | | | +--------+--------+ + + + [...]
--- OUTSIDE RECORDS SUMMARY | ~2019-03-12 | XMS | Encounter Summary ---
Demographics + + + | Address | [address] | | | [place] [address] | + + + | Home Phone | | + + + | Preferred Language | Unknown | + + + | Marital Status | Single | + + + | Confucianist Affiliation | NRP | + + + [...] Team Providers + +------+ + | Care Shoe Salesperson Name | Role | Phone | + [...] | | | | | Jazlyn Koenig [place], | | | | | | [place] [address] | | | +--------+--------+ + + + [...]
--- OUTSIDE RECORDS SUMMARY | ~2019-03-12 | XMS | Encounter Summary ---
Demographics + + + | Address | [address] | | | [place] [address] | + + + | Home Phone | | + + + | Preferred Language | Unknown | + + + | Marital Status | Single | + + + | Denominational Affiliation | NRP | + + + | Race | White | + + + | Ethnic Group | Not or | + + + Author + + + | Author | [facility] | + + + | Organization | [facility] | + + + | Address | Unknown | + + + | Phone | Unavailable | + + + Support + + +---------+ + | Name | Relationship | Address | Phone | + + +---------+ + | Irina Trevino | ECON | Unknown | | + + +---------+ + Care Team Providers + +------+ + | Care Instructional Technology Coach Name | Role | Phone | + [...] | | | | | | Jaz[place], | | | | | | [place] [address] | | | | | | [phone] | | | +--------+ + + + [...]
--- OUTSIDE RECORDS SUMMARY | ~2019-03-12 | XMS | Encounter Summary ---
Demographics + + + | Address | [address] | | | [place] [address] | + + + | Home Phone | | + + + | Preferred Language | Unknown | + + + | Marital Status | Single | + + + | Anglican Affiliation | NRP | + + + [...] Team Providers + +------+ + | Care Senior Consulting Manager Name | Role | Phone | + [...]
--- OUTSIDE RECORDS SUMMARY | ~2019-03-12 | XMS | Encounter Summary ---
Demographics + + + | Address | [address] | | | [place] [address] | + + + | Home Phone | | + + + | Preferred Language | Unknown | + + + | Marital Status | Single | + + + | Church Affiliation | NRP | + + + | Race | White | + + + | Ethnic Group | Not or | + + + Author + + + | Author | [facility] | + + + | Organization | [facility] | + + + | Address | Unknown | + + + | Phone | Unavailable | + + + Support + + +---------+ + | Name | Relationship | Address | Phone | + + +---------+ + | Irina Trevino | ECON | Unknown | | + + +---------+ + Care Team Providers + +------+ + | Care Administrative Associate Name | Role | Phone | + +------+ + | Anibal Ferrara MD | PCP | | + +------+ + Encounter Details +--------+ + + + + | Date | Type | Department | Care Team | Description | +--------+ + + + + | 12/23/ | Pharmacy | [facility] Inpatient | | | | 2019 | Visit | Pharmacy [address] | | | | | | [address] | | | | | | [place], [place] | | | | | | [address] | | | +--------+ + + + [...]
--- OUTSIDE RECORDS SUMMARY | ~2019-03-12 | XMS | Encounter Summary ---
Demographics + + + | Address | [address] | | | [place] [address] | + + + | Home Phone | | + + + | Preferred Language | Unknown | + + + | Marital Status | Single | + + + | Yazidism Affiliation | NRP | + + + [...] Team Providers + +------+ + | Care Telephoto Installer Name | Role | Phone | + [...] | | | | | Jazlyn Koenig [place], | | | | | | [place] [address] | | | | | | [phone] | | | +--------+ + + + [...]
--- OUTSIDE RECORDS SUMMARY | 2019-03-12 03:02 | XMS ---
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 CRITERIA MET - Group Notification - 6 ED Visits in 6 Months - [facility] - Has Care Guidelines - [facility]ARE PROVIDERS ANNY JEROME [facility] 07/08/2018-Current PHONE: [phone] GUILLAUMEACY TRAY JARRETT [facility] PHONE: Unknown FABRIZIO MONREAL [facility] PHONE: Unknown Guidelines Source: [facility] Guidelines Date: 08/26/2018 Care Coordination: Currently engaged in mental health services with [email or web address].\T\nbsp; Please contact [email or web address] with mental health concerns.\T\nbsp; Andrey/Prasanna Clements: \T\nbsp; [phone]\T\nbsp; Shayy:\T\nbsp; [phone]. Care History Medical/Surgical 01/06/2019 [facility] - PATIENT HAS AN APT TO ESTABLISH CARE WITH DR BAUTISTA ON 02/16/19. 10/16/2018 [facility] - PATIENT CAN BE DIRECTED TO A MANAGER TELECOM THROUGH [facility] IF PATIENT WOULD LIKE SOME OUTPATIENT RESOURCES FOR A\T\amp;D SERVICES AND OR MENTAL HEALTH HELP. - MANAGER TELECOM WOULD HAVE TO HAVE AN AUTHORIZATION BEFORE SERVICES RENDERED- [phone] IS BEST CONTACT NUMBER. 07/08/2018 [facility] - PATIENT HAS AN APT WITH [...] should exercise clinical judgment when providing care. E.D. VISIT COUNT (12 MO.) 1 [facility] and [facility] 17 [facility]. TOTAL 18 NOTE: Visits indicate total known visits. ED/UCC VISIT TRACKING (12 MO.) 03/12/2019 02:59 [facility] [place] TYPE: Emergency COMPLAINT: - MEDICAL CLEARANCE 01/06/2019 03:03 [facility] [place] TYPE: Emergency COMPLAINT: - FLANK PAIN DIAGNOSES: - Nicotine dependence, unspecified, uncomplicated - Unspecified abdominal pain - Allergy status to penicillin - Other exterminator helper (current) 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 - Anxiety disorder, unspecified - Major depressive disorder, single episode, unspecified 11/19/2018 23:50 [facility] [place] TYPE: Emergency COMPLAINT: - HEAD PAIN/ NO INJURY DIAGNOSES: - Allergy status to penicillin - Anxiety disorder, unspecified - Headache - Nicotine dependence, unspecified, uncomplicated - Major depressive disorder, single episode, unspecified - Other exterminator helper (current) 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 11/01/2018 19:48 [facility] [place] TYPE: Emergency COMPLAINT: - MEDICAL CLEARANCE DIAGNOSES: - Other longterm (current) 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 - Nicotine dependence, unspecified, uncomplicated - Restlessness and agitation - Acquired absence of both cervix and uterus - Traum subrac hem w/o loss of consciousness, subs - Major depressive disorder, single episode, unspecified - Alcohol abuse with intoxication, unspecified - Anxiety disorder, unspecified 10/31/2018 14:45 [facility] TYPE: Emergency DIAGNOSES: 88704. traumatic sub dural 04388. Fall on same level, unspecified, initial encounter 25196. Nontraumatic subarachnoid hemorrhage, unspecified 10/31/2018 11:08 [facility] [place] TYPE: Emergency COMPLAINT: - POSS SEIZURE/HEAD INJURY DIAGNOSES: - Headache - Acquired absence of both cervix and uterus - Major depressive disorder, single episode, unspecified - Anxiety disorder, unspecified - Allergy status to penicillin - Traum subrac hem w/o loss of consciousness, init - Other exterminator helper (current) 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 - Nicotine dependence, unspecified, uncomplicated - Fall on same level, unspecified, initial encounter - Laceration without foreign body of scalp, initial encounter - Syncope and collapse 10/15/2018 14:21 [facility] [place] TYPE: Emergency COMPLAINT: - MEDICAL CLEARANCE DIAGNOSES: - Nicotine dependence, unspecified, uncomplicated - Other longterm (current) 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 - Major depressive disorder, [...] depressive disorder, single episode, unspecified - Other exterminator helper (current) 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 - Nicotine dependence, unspecified, uncomplicated - Alcohol dependence, uncomplicated - Polyneuropathy, unspecified 10/05/2018 18:51 [facility] [place] TYPE: Emergency COMPLAINT: - BACK PAIN/POST OP PROBLEM DIAGNOSES: - Other chronic pain - Alcohol abuse, uncomplicated - Anxiety disorder, unspecified - Major depressive disorder, single episode, unspecified - Pelvic and perineal pain - Other longterm (current) 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 - Allergy status to [...] tract infection, site not specified - Other exterminator helper (current) 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 - Polyneuropathy, unspecified - Postproc 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 of a sys 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 following 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 - Acquired absence of both cervix and uterus - Nicotine dependence, unspecified, uncomplicated 10/01/2018 18:52 [facility] [place] TYPE: Emergency COMPLAINT: - BACK PAIN/NON INJURY DIAGNOSES: - Other exterminator helper (current) 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 - Urinary tract [...] - Post-traumatic stress disorder, unspecified - Other exterminator helper (current) 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 - Blood alcohol level [...] penicillin - Anxiety disorder, unspecified - Other exterminator helper (current) 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 - Headache - Major [...] more - Anxiety disorder, unspecified - Other exterminator helper (current) 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 07/05/2018 04:09 [facility] [place] TYPE: Emergency COMPLAINT: - MEDICAL CLEARANCE DIAGNOSES: - Allergy status to penicillin - Blood alcohol level of 240 mg/100 ml or more - Suicidal ideations - Nicotine dependence, unspecified, uncomplicated - Post-traumatic stress disorder, unspecified - Other exterminator helper (current) 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 - Alcohol abuse with intoxication, unspecified - Polyneuropathy, unspecified - Anxiety disorder, unspecified 05/04/2018 19:24 [facility] [place] TYPE: Emergency COMPLAINT: - INTOXICATION DIAGNOSES: - Allergy status to penicillin - Alcohol dependence with intoxication, unspecified - Post-traumatic stress disorder, unspecified - Anxiety disorder, unspecified - Other exterminator helper (current) 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 - Polyneuropathy, unspecified [...] - Nicotine dependence, unspecified, uncomplicated - Other exterminator helper (current) 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 INPATIENT VISIT TRACKING (12 MO.) 09/23/2018 13:04 [facility] [place] TYPE: Critical Care COMPLAINT: - ABD PAIN/HYPOTENSION DIAGNOSES: - Anxiety disorder, unspecified - Adverse effect of antiepileptic and sed-hypntc drugs, init - Peritoneal abscess - Allergy status to penicillin - Alcohol dependence with withdrawal, unspecified - Major depressive disorder, single episode, unspecified - Other acute postprocedural pain - Acquired absence of both cervix and uterus - Nicotine dependence, cigarettes, uncomplicated - Unspecified abdominal pain - Metabolic encephalopathy - Polyneuropathy, unspecified - Diarrhea, unspecified - Dehydration - Other longterm (current) 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 - Post-traumatic stress disorder, unspecified [email or web address]
[2019-03-12] MEDS ORDERED: ATIVAN2 MG PO (03:21)
== END 2019-03-12 12:20 | disposition home or self-care (01) ==
LOC: ED 02:59
DX: R45.851 Suicidal ideations (principal); F10.229 Alcohol dependence with intoxication, unspecified; Y90.8 Blood alcohol level of 240 mg/100 ml or more; F41.9 Anxiety disorder, unspecified; F32.9 Major depressive disorder, single episode, unspecified; F43.10 Post-traumatic stress disorder, unspecified; F17.200 Nicotine dependence, unspecified, uncomplicated; Z88.0 Allergy status to penicillin; Z79.899 Other long term (current) 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
CPT/HCPCS: 80053; 80176; 81001; 84443; 85025; 96365; 99284-25; G0480; J3411; J7030

== ENCOUNTER 2019-03-14 11:11 | Emergency (ER) | payer OTHER ==
[~2019-03-14] VITALS: Ht 162.6 cm; Wt 67.3 kg
--- OUTSIDE RECORDS SUMMARY | ~2019-03-14 | XMS | Encounter Summary ---
Demographics + + + | Address | [address] | | | [place] [address] | + + + | Home Phone | | + + + | Preferred Language | Unknown | + + + | Marital Status | Single | + + + | Jew Affiliation | NRP | + + + | Race | White | + + + | Ethnic Group | Not or | + + + Author + + + | Author | [facility] | + + + | Organization | [facility] | + + + | Address | Unknown | + + + | Phone | Unavailable | + + + Support + + +---------+ + | Name | Relationship | Address | Phone | + + +---------+ + | Irina Trevino | ECON | Unknown | | + + +---------+ + Care Team Providers + +------+ + | Care Package Pick Up Name | Role | Phone | + +------+ + | Anibal Ferrara MD | PCP | | + +------+ + Encounter Details +--------+ + + + + | Date | Type | Department | Care Team | Description | +--------+ + + + + | 11/01/ | Pharmacy | Outpatient Retail | | | | 2019 | Visit | Clinic Pharmacy | | | | | | [address] | | | | | | [place] Ko[place], | | | | | | [place] [address] | | | | | | [phone] | | | +--------+ + + + + Social History + + + +--------+------+ | Tobacco Use | Types | Packs/Day | Years | Date | | | | | Used | | + + + +--------+------+ | Current Every Day | Cigarettes | 0.5 | 20 | | | Smoker | | | | | + + + +--------+------+ + +---+---+---+ | Smokeless Tobacco: | | | | | Never Used | | | | + +---+---+---+ + + +---------+ + | Alcohol Use | Drinks/Week | oz/Week | Comments | + + +---------+ + | Yes | 4 Cans of beer | 4.0 | 4 to 7 beers per | | | | | day; twice per week | | | | | she drinks 6-7 beers | | | | | in one day | + + +---------+ + + + + | Sex Assigned at | Date Recorded | | | | + + + | Not on file | | + + + + + + + | Job Start Date | Occupation | Industry | + + + + | Not on file | Not on file | Not on file | + + + + + + + + | Travel History | Travel Start | Travel End | + + + + + + | No recent travel history available. | + + documented as of this encounter Plan of Treatment Not on filedocumented as of this encounter Visit Diagnoses Not on filedocumented in this encounter"
--- OUTSIDE RECORDS SUMMARY | ~2019-03-14 | XMS | Encounter Summary ---
Demographics + + + | Address | [address] | | | [place] [address] | + + + | Home Phone | | + + + | Preferred Language | Unknown | + + + | Marital Status | Single | + + + | Episcopal Affiliation | NRP | + + + | Race | White | + + + | Ethnic Group | Not or | + + + Author + + + | Author | [facility] | + + + | Organization | [facility] | + + + | Address | Unknown | + + + | Phone | Unavailable | + + + Support + + +---------+ + | Name | Relationship | Address | Phone | + + +---------+ + | Irina Trevino | ECON | Unknown | | + + +---------+ + Care Team Providers + +------+ + | Care Fuel Agent Name | Role | Phone | + +------+ + | Anibal Ferrara MD | PCP | | + +------+ + Encounter Details +--------+ + + + + | Date | Type | Department | Care Team | Description | +--------+ + + + + | 12/23/ | [facility] | [facility] | | | 2019 | Visit | Pharmacy [address] | | | | | | [address] | | | | | | [place], [place] | | | | | | [address] | | | +--------+ + + + [...]
--- OUTSIDE RECORDS SUMMARY | ~2019-03-14 | XMS | Encounter Summary ---
Demographics + + + | Address | [address] | | | [place] [address] | + + + | Home Phone | | + + + | Preferred Language | Unknown | + + + | Marital Status | Single | + + + | Baptist Affiliation | NRP | + + + | Race | White | + + + | Ethnic Group | Not or | + + + Author + + + | Author | [facility] | + + + | Organization | [facility] | + + + | Address | Unknown | + + + | Phone | Unavailable | + + + Support + + +---------+ + | Name | Relationship | Address | Phone | + + +---------+ + | Irina Trevino | ECON | Unknown | | + + +---------+ + Care Team Providers + +------+ + | Care Flanger Name | Role | Phone | + +------+ + | Anibal Ferrara MD | PCP | | + +------+ + Encounter Details +--------+--------+ + + + | Date | Type | Department | Care Team | Description | +--------+--------+ + + + | 10/31/ | Intake | Transfer Center | | N/A | | 2019 | | [address] | | | | | | [place] Ko[place], | | | | | | [place] [address] | | | +--------+--------+ + + + Social History + + [...]
--- OUTSIDE RECORDS SUMMARY | ~2019-03-14 | XMS | Encounter Summary ---
Demographics + + + | Address | [address] | | | [place] [address] | + + + | Home Phone | | + + + | Preferred Language | Unknown | + + + | Marital Status | Single | + + + | Advent Affiliation | NRP | + + + | Race | White | + + + | Ethnic Group | Not or | + + + Author + + + | Author | [facility] | + + + | Organization | [facility] | + + + | Address | Unknown | + + + | Phone | Unavailable | + + + Support + + +---------+ + | Name | Relationship | Address | Phone | + + +---------+ + | Irina Trevino | ECON | Unknown | | + + +---------+ + Care Team Providers + +------+ + | Care Early Childhood Name | Role | Phone | + +------+ + | Anibal Ferrara MD | PCP | | + +------+ + Encounter Details +--------+ + + + + | Date | Type | Department | Care Team | Description | +--------+ + + + + | 11/03/ | Pharmacy | Outpatient Retail | | | | 2019 | Visit | Clinic Pharmacy | | | | | | [address] | | | | | | [place], | | | | | | [place] [address] | | | | | | [phone] | | | +--------+ + + + [...]
--- OUTSIDE RECORDS SUMMARY | ~2019-03-14 | XMS | Encounter Summary ---
Demographics + + + | Address | [address] | | | [place] [address] | + + + | Home Phone | | + + + | Preferred Language | Unknown | + + + | Marital Status | Single | + + + | Voodoo Affiliation | NRP | + + + | Race | White | + + + | Ethnic Group | Not or | + + + Author + + + | Organization | Unknown | + + + | Address | Unknown | + + + | Phone | Unavailable | + + + Support + + +---------+ + | Name | Relationship | Address | Phone | + + +---------+ + | Irina Trevino | ECON | Unknown | | + + +---------+ + Care Team Providers + +------+ + | Care Welder Production Line Arc Name | Role | Phone | + +------+ + | Anibal Ferrara MD | PCP | | + +------+ + Encounter Details +--------+--------+ + + + | Date | Type | Department | Care Team | Description | +--------+--------+ + + + | 10/31/ | Travel | | | | | 2019 | | | | | +--------+--------+ + + + [...]
--- OUTSIDE RECORDS SUMMARY | ~2019-03-14 | XMS | Encounter Summary ---
Demographics + + + | Address | [address] | | | [place] [address] | + + + | Home Phone | | + + + | Preferred Language | Unknown | + + + | Marital Status | Single | + + + | Temple Affiliation | NRP | + + + | Race | White | + + + | Ethnic Group | Not or | + + + Author + + + | Author | [facility] | + + + | Organization | [facility] | + + + | Address | Unknown | + + + | Phone | Unavailable | + + + Support + + +---------+ + | Name | Relationship | Address | Phone | + + +---------+ + | Irina Trevino | ECON | Unknown | | + + +---------+ + Care Team Providers + +------+ + | Care Spray Drier Operator Name | Role | Phone | [...] | | | | | [place], | | | | | | [place] [address] | | | | | | [phone] | | | +--------+ + + + [...]
--- OUTSIDE RECORDS SUMMARY | ~2019-03-14 | XMS | Encounter Summary ---
Demographics + + + | Address | [address] | | | [place] [address] | + + + | Home Phone [...] Author + + + | Author | [facility] | + + + | Organization | [facility] | + + + | Address | Unknown | + + + | Phone | Unavailable | + + + Support + + +---------+ + | Name | Relationship | Address | Phone | + + +---------+ + | Irina Trevino | ECON | Unknown | | + + +---------+ + Care Team Providers + +------+ + | Care Slitter Creaser Slotter Operator Name | Role | Phone | + +------+ + | Anibal Ferrara MD | PCP | | + +------+ + Encounter Details +--------+ + + + + | Date | Type | Department | Care Team | Description | +--------+ + + + + | 12/23/ | Pharmacy | [facility] Inpatient | | | | 2019 | Visit | Pharmacy [address] | | | | | | [address] | | | | | | [place], [place] | | | | | | [address] | | | +--------+ + + + [...]
--- OUTSIDE RECORDS SUMMARY | ~2019-03-14 | XMS | Encounter Summary ---
Demographics + + + | Address | [address] | | | [place] [address] | + + + | Home Phone | | + + + | Preferred Language | Unknown | + + + | Marital Status | Single | + + + | Congregational Affiliation | NRP | + + + [...] Team Providers + +------+ + | Care Software Development Advisor Name | Role | Phone | + [...] | | | | | [place], | | | | | | [place] [address] | | | +--------+--------+ + + + [...]
--- OUTSIDE RECORDS SUMMARY | ~2019-03-14 | XMS | Encounter Summary ---
Demographics + + + | Address | [address] | | | [place] [address] | + + + | Home Phone | | + + + | Preferred Language | Unknown | + + + | Marital Status | Single | + + + | Anabaptism Affiliation | NRP | + + + | Race | White | + + + | Ethnic Group | Not or | + + + Author + + + | Author | [facility] | + + + | Organization | [facility] | + + + | Address | Unknown | + + + | Phone | Unavailable | + + + Support + + +---------+ + | Name | Relationship | Address | Phone | + + +---------+ + | Irina Tran | ECON | Unknown | | + + +---------+ + Care Team Providers + +------+ + | Care Radiologist Physician Name | Role | Phone | + [...] | | | | | Procedures | [address] | [address] | | | | | CONSULT TO | Shailesh Terrazas | Coco | | | | | SPINE | Maria Ines Leach | [facility] [place] | | | | | NEUROSURGERY | [place], [place] | [address] | | | | | | [address] | Phone: | | | | | | Phone: | [phone] | | | | | | [phone] | Fax: | | | | | | Fax: | [phone] | | | | | | [phone] | | + +--------+ + + + [...] + + | 10/31/ | Emergency | [facility] Emergency | Eliseo Liriano | | | 2019 - | | Department [address] | [place], [address] [facility] | | | | | [facility] | [facility] | | | 11/01/ | | [facility] | [place], [place] | | | 2018 | | [place], [place] | [address] | | | | | [address] | [phone] | | | | | [phone] | | | | | | | Shreyas Yo NP | | | | | | [address] | | | | | | [facility] | | | | | | [place], [place] | | | | | | [address] | | | | | | [phone] | | | | | | | | | | | | Sathish Childs, | | | | | | ANP [address] | | | | | | [facility] | | | | | | [place], [place] | | | | | | [address] | | | | | | [phone] | | | | | | | [...] modifie d trauma transfer from outside hospital ([place]). Lisha Mendosa reports taking 25mg dose of hydroxyzine this morning and then [facility]. She had a sudden [...] given TDAP, and then transp orted to [facility] via helicopter. Followed by [facility], scheduled for a procedure on 11/07/2018, [...] is now living alone in a town ([place], [place]) where she doesn't know anyone, feel s socially isolated, and feels anxious leaving her home, particularly with driving. She has severe anxiety with driving generally, which is likely why, she states, she took hydroxyzine in order to help her get to the store today." - Shreyas Yo, CNC PROGRAMMER Interval hx: at 10:35 on 11/01, pt [...] was initiated which included: CT head at [facility] in [place]: "extremely large scalp hematoma along the right parietal region" "streak of subarachnoid hemorrhage, deep to the large scalp hematoma, within the parietal l obe. It measures approximately 25mm transversely, 5mm AP, and 7mm craniocaudally." CT c-spine at [facility] in [place]: "The images demonstrate normal alignment with no [...] Test, a normal Cerebellar Exam, a normal Ohonms-Jpia-Idigcz Test, a normal Heel to Ramos Test, [...] up in outpatient spine clinic Please call [phone] - Strict instructions to return to ED [...] willing to accept help/detox - please contact [facility] ([phone]) and request an assessment in the ED. Best contact is Radha gaviria." # Right hydronephrosis, complication of hysterectomy on 09/14/2018 -Follow up with [facility] as planned in 1-2 weeks -Urinalysis [...] Dear Lisha, Thank you for choosing the [facility] for your healthcare. You we [...] substances. Thank you again for choosing the [facility] for your healthcare. We look forward to serving you again. Sincerely, Sathish Childs, CNC PROGRAMMER, MPH [facility] Emergency Department If at any point you would like to schedule an appointment to establish with a new primary c are provider, please feel free to call: [facility] Family Medicine clinic: [phone] [facility] Internal Medicine clinic: [phone] [facility] Clinics: [phone] [facility]: [phone] [facility] Medical Information and Referral: [phone] Physical Exam AttachmentsThe following attachments cannot be sent through Care Everywhere.Subarachnoid He morrhage: General Info (Russian)Lacerations: Zeyad (Russian)Hydronephrosis: General Info ( Russian)Fainting (Russian)Alcohol Use Disorder: General Info (Russian)chlordiazepoxide (Engl lemuel)Alcohol Withdrawal: General Info (Russian)documented in this encounter Medications at Time of [...] [facility] | [address] | [place] [address] | | | SERVICES, CORE | PARK [...] | | | LABORATORY | | | [place] | | | SERVICES, | | [...] | + + + + + | [facility] | [address] | [place] [address] | | | SERVICES, [facility] | [address] | | | + [...] | + + + + + | [facility] | [address] [facility] | [place] [address] | | | SERVICES, [place] | [address] | | | + + + + + ED INFORMATION EXCHANGE (10/31/2018 4:11 PM PDT) + + | Specimen | + + | | + + + + + | Narrative | Performed At | + + + | [facility]?NOTIFICATION?10/31/2018 14:45?LISHA MENDOSA?MRN: | [facility] | | [id number] Criteria Met 5 Visits In 12 Months Has | MEDICAL | | Guidelines Security and Safety Date Location Type Specifics | TECHNOLOGIES | | 10/06/18 3:06 PM [facility] Elopement Other | | | Details: PATIENT LEFT AMA. IRIS CREATED. Security Events (18 | | | Mo.) Count Elopement 1 Total 1 ED Care Guidelines from | | | Odilon - Jone Last Updated: 08/26/18 9:42 AM Care | | | Coordination: Currently engaged in mental health services with | | | [facility].? Please contact [facility] with mental health concerns.? | | | Andrey/Prasanna Clements:? [phone]? Shayy:? [phone]. | | | These are guidelines and the provider should exercise clinical | | | judgment when providing care. Care History Medical/Surgical | | | 10/16/18 12:00 AM [facility] PATIENT CAN BE | | | DIRECTED TO A RELIGIOUS HEALER THROUGH [facility] IF | | | PATIENT WOULD LIKE SOME OUTPATIENT RESOURCES FOR AandD SERVICES AND OR | | | MENTAL HEALTH HELP. RELIGIOUS HEALER WOULD HAVE TO HAVE AN | | | AUTHORIZATION BEFORE SERVICES rendered- [phone] IS BEST CONTACT | | | NUMBER. 07/08/18 12:00 AM [facility] | | | PATIENT HAS AN APT WITH DR JEROME ON 10/15/18. Patient is | | | currently established with [facility]. If patient is seen in | | | the ED during business hours. Please contact CHWs at [facility] | | | Clinic. Care Recommendation: [...] care. 05/06/18 12:00 AM | | | [facility] CHW CALLED PATIENT- PATIENT | | | VOICEMAIL BOX IS FULL CAN'T LEAVE A MESSAGE FOR A CALL BACK- IF | | | PATIENT IS WILLING TO ACCEPT HELP/DETOX- PLEASE CONTACT [facility] | | | SERVICES [phone] AND REQUEST AN ASSESSMENT IN THE ED. BEST | | | CONTACT IS RADHA WORLEY. Prescription Drug Report | | | (12 Mo.) Unable to determine if a PDMP report exists, because an | | | error response was received from PDMP. E.D. Visit Count (12 | | | mo.) Facility Visits [facility] 1 [facility] | | | [facility] 14 Total 15 Note: Visits indicate total known | | | visits. Recent Emergency Department Visit Summary Showing 10 | | | most recent visits out of 15 in the past 12 months Date Facility City | | | State Type Diagnoses or Chief Complaint Oct 31, 2018 [facility] | | | [facility] [place] Emergency 10,151. traumatic | | | sub dural 18,400. Fall on same level, unspecified, initial | | | encounter 18,400. Nontraumatic subarachnoid hemorrhage, | | | unspecified Oct 31, 2018 [facility] [place] Emergency | | | Chief Complaint: POSS SEIZURE/HEAD INJURY Oct 15, 2018 [facility]. | | | [place] Emergency Major depressive disorder, | | | single episode, unspecified Nicotine dependence, unspecified, | | | uncomplicated Other mcfp (current) 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 | | | Post-traumatic stress disorder, unspecified Alcohol abuse with | | | intoxication, unspecified Allergy status to penicillin | | | Anxiety disorder, unspecified Blood alcohol level of 240 mg/100 | | | ml or more Oct 06, 2018 [facility] 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 Emergency Other | | | chronic pain Alcohol abuse, uncomplicated Anxiety | | | disorder, unspecified Major depressive disorder, single episode, | | | unspecified Pelvic and perineal pain Other mcfp | | | (current) 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 Allergy status to penicillin | | | Acquired absence of both cervix and uterus Nicotine dependence, | | | unspecified, uncomplicated Oct 03, 2018 [facility] [place] 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 [place] Emergency | | | Low back pain Other mcfp (current) 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 | | | Urinary tract infection, site not specified Major depressive | | | disorder, single episode, unspecified Other acute postprocedural | | | pain Anxiety disorder, unspecified Nicotine dependence, | | | unspecified, uncomplicated Alcohol abuse with intoxication, | | | unspecified Allergy status to penicillin Unspecified | | | abdominal pain September 23, [address] [facility] [address] [place] | | | Emergency Chief Complaint: POST OP PROB/ABD PAIN August 28, 2018 | | | [facility] 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 Emergency Nicotine dependence, | | | unspecified, uncomplicated Contusion of other part of head, | | | initial encounter Alcohol abuse with intoxication, unspecified | | | Allergy status to penicillin Anxiety disorder, unspecified | | | Other mcfp (current) 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 Headache | | | [...] 08, 2018 - | | | Current [employer] Portal This patient has registered at the | | | [facility] Emergency Department For more | | | information visit: | | | [email or web address] | | | [email or web address] PLEASE NOTE: 1. [...] or completeness of information provided. ? 2019 [employer] | | | [employer] - [email or web address] | | + + + + + [...] 1 Total 1 ED [facility] | | Updated: 08/26/18 9:42 AM Care Coordination:Currently engaged in mental health services | | with [facility].? Please contact [facility] with mental health concerns.? Andrey/Prasanna | | Tyree:? [phone]? Shayy:? [phone].These are guidelines and the provider | | should exercise clinical judgment when providing care.Care | | HistoryMedical/Surgical10/16/18 12:00 AM [facility] PATIENT CAN BE | | DIRECTED TO A RELIGIOUS HEALER THROUGH [facility] IF PATIENT WOULD LIKE SOME | | OUTPATIENT RESOURCES FOR AandD SERVICES AND OR MENTAL HEALTH HELP. RELIGIOUS HEALER WOULD | | HAVE TO HAVE AN AUTHORIZATION BEFORE SERVICES rendered- [phone] IS BEST CONTACT | | NUMBER.07/08/18 12:00 AM [facility] PATIENT HAS AN APT WITH DR JEROME ON | | 10/15/18. Patient is currently established with [facility]. If patient is seen | | in the ED during business hours. Please contact CHWs at [facility].Care | | Recommendation:This patient has had [...] when | | providing care.05/06/18 12:00 AM [facility] CHW CALLED PATIENT- PATIENT | | VOICEMAIL BOX IS FULL CAN'T LEAVE A MESSAGE FOR A CALL BACK- IF PATIENT IS WILLING TO | | ACCEPT HELP/DETOX- [facility] [phone] AND REQUEST AN | | ASSESSMENT IN THE ED. BEST CONTACT IS RADHA WORLEY.Prescription Drug Report (12 | | Mo.)Unable to determine if a PDMP report exists, because an error response was received | | from PDMP.E.D. Visit Count (12 mo.)Facility Visits [facility] | | 1 [facility] 14 Total 15 Note: Visits indicate total known visits. Recent | | Emergency Department Visit SummaryShowing 10 most recent visits out of 15 in the past | | 12 monthsDate Facility City State Type Diagnoses or Chief Complaint Oct 31, 2018 [place] | | [facility] [place] Emergency 10,151. traumatic sub dural | | 18,400. Fall on same level, unspecified, initial encounter 18,400. Nontraumatic | | subarachnoid hemorrhage, unspecified Oct 31, 2018 [facility] [place] Emergency | | Chief Complaint: POSS SEIZURE/HEAD INJURY Oct 15, 2018 [facility] 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 | | Emergency Anxiety disorder, unspecified Acquired absence of both cervix and uterus | | Pelvic and perineal pain Allergy status to penicillin Unspecified | | hydronephrosis Major depressive disorder, single episode, unspecified Other long | | term (current) 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 Nicotine dependence, unspecified, uncomplicated | | Alcohol dependence, uncomplicated Polyneuropathy, unspecified Oct 05, [address] [facility] [address] | | [place] Emergency Other chronic pain Alcohol abuse, uncomplicated | | Anxiety disorder, unspecified Major depressive disorder, single episode, unspecified | | Pelvic and perineal pain Other mcfp (current) drug therapy Allergy status | | to penicillin Acquired absence of both cervix and uterus Nicotine dependence, | | unspecified, uncomplicated Oct 03, 2018 [facility] [place] Emergency | | Allergy status to penicillin Major depressive disorder, single episode, unspecified | | Abnormal uterine and vaginal bleeding, unspecified Other acute postprocedural pain | | Anxiety disorder, unspecified Urinary tract infection, site not specified Other | | mcfp (current) drug therapy Polyneuropathy, unspecified Postprocedural | | hemorrhage of a genitourinary system organ or structure following a genitourinary system | | procedure Nicotine dependence, unspecified, uncomplicated Oct 01, 2018 [facility] [address] | | 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 Emergency Chief Complaint: POST OP PROB/ABD | | PAIN August 28, 2018 [facility] [place] Emergency Blood alcohol level of 240 | | mg/100 ml or more Alcohol abuse with intoxication, unspecified Suicidal ideations | | Nicotine dependence, unspecified, uncomplicated Major depressive disorder, single | | episode, unspecified Post-traumatic stress disorder, unspecified Other long wall mining machine tender | | (current) drug therapy Anxiety disorder, unspecified Allergy status to penicillin | | Aug 25, 2018 [facility] [place] Emergency Nicotine dependence, | | unspecified, uncomplicated Contusion of other part of head, initial encounter | | Alcohol abuse with intoxication, unspecified Allergy status to penicillin Anxiety | | disorder, unspecified Other mcfp (current) drug therapy Headache Major | | depressive disorder, single episode, unspecified Post-traumatic stress disorder, | | unspecified Polyneuropathy, unspecified Recent Inpatient Visit SummaryDate Facility | | [facility] State Type Diagnoses or Chief Complaint September 23, 2018 [facility] [place] | | Critical Care [...] | | Unspecified abdominal pain Care TeamProvider [facility] Type Phone Fax Service Dates [facility], | | Malathi MCCORMICK. Family Medicine Jul 08, 2018 - Current | | [facility] PortalThis patient has registered at the [facility] | | Emergency Department For more information visit: | | [email or web address] PLEASE | | NOTE: 1. Any care [...] completeness of information | | provided.? 2019 [employer] - [email or web address] | |Oct 05, 2018 [facility] 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 Emergency | | Allergy status to penicillin | | Major depressive disorder, single episode, unspecified | | Abnormal uterine and vaginal bleeding, unspecified | | Other acute postprocedural pain | | Anxiety disorder, unspecified | | Urinary tract infection, site not specified | | Other mcfp (current) drug therapy | | Polyneuropathy, unspecified | | Postprocedural hemorrhage of a genitourinary system organ or structure following a genit ourinary system procedure | | Nicotine dependence, unspecified, uncomplicated | | | |Oct 01, 2018 [facility] [place] Emergency | | Low back pain | | Other mcfp (current) drug therapy | | Urinary tract infection, site not specified | | Major depressive disorder, single episode, unspecified | | Other acute postprocedural pain | | Anxiety disorder, unspecified | | Nicotine dependence, unspecified, uncomplicated | | Alcohol abuse with intoxication, unspecified | | Allergy status to penicillin | | Unspecified abdominal pain | | | |September 23, 2018 [facility] [place] Emergency Chief Complaint: POST OP PROB/ABD PAIN | |August 28, 2018 [facility] [place] Emergency | | Blood alcohol level of 240 mg/100 ml or more | | Alcohol abuse with intoxication, unspecified | | Suicidal ideations | | Nicotine dependence, unspecified, uncomplicated | | Major depressive disorder, single episode, unspecified | | Post-traumatic stress disorder, unspecified | | Other mcfp (current) drug therapy | | Anxiety disorder, unspecified | | Allergy status to penicillin | | | |Aug 25, 2018 [facility] 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 Critical Care | | [...] 08, 2018 - Current | | | |[employer] Portal | |This patient has registered at the [facility] t | |For more information visit: [email or web address] | |PLEASE NOTE: | | 1. Any care recommendations and other clinical information are provided as guidelines or for historical purposes only, and providers should exercise their own clinical judgment whe n providing care. | | 2. You may only use this information for purposes of treatment, payment or health care o perations activities, and subject to the limitations of applicable ProspectStream Policies. | | 3. You should consult directly with the organization that provided a care guideline or o ther clinical history with any questions about additional information or accuracy or complet eness of information provided. | | | |? 2019 [employer]. - [email or web address] | + + + + + + + | Performing | Address | City/State/Zipcode | Phone Number | | Organization | | | | + + + + + | [facility] | [address], | [place], [place] | [phone] | | TECHNOLOGIES | [address] | [address] | | + + + + + [...] JAE[facility] | [address] | [place], [place] | | | [facility] | [address] | [address] | | | TESTS | | | [...] | + + + + + | [facility] | [address] | [place] [address] | | | GER[place]D [place]ULTZ | [address] [...] | + + + + + | [facility] | [address] | [place] [address] | | | GERALD [place]Z | [address]IA [...] | + + + + + | [facility] | [address] | [place] [address] | | | SERVICES, CORE | MARIA [...] | + + + + + | [facility] | [address] | [place] [address] | | | SERVICES, | [address] [...] [facility] | [address] | [place] [address] | | | SERVICES, CORE | PARK [...] | + + + + + | [facility] | [address] | [place] [address] | | | SERVICES, CORE | MARIA [...] [facility] | [address] | [place] [address] | | | SERVICES, CORE | PARK [...] 5:11 | | | | | dose, [facility] 10/31/18 at 1715 | | PM [...] | | | | | 1 dose, [facility] 11/01/18 at 1045 | | AM PDT | | | | + +-------+ +-------+---+---+ +---+---+ | | | +---+---+ + +-------+ +------+---+---+ | folic acid (FOLVITE) tablet 1 | Given | 11/02/19 | 1 mg | | | | mg 1 mg, oral, DAILY, 3 doses, | | 19 8:20 | | | | | First dose on [facility] 10/31/18 at 1800, | | AM PDT | | | | | Last dose on [facility] 11/02/18 at 0900 | | | | [...] DAILY, First dose on | | | [facility] 10/31/18 at 2100, Until | | [...] PDT | | | | | on [facility] 11/02/18 at 0900 | | | | | | + +-------+ +--------+---+---+ +-------+ +--------+---+---+ | Given | 11/01/19 | 100 mg | | | | | 19 8:03 | | | | | | PM PDT | | | | +-------+ +--------+---+---+ +---+---+ | | | +---+---+ documented in this encounter
--- OUTSIDE RECORDS SUMMARY | ~2019-03-14 | XMS | Encounter Summary ---
Demographics + + + | Address | [address] | | | [place] [address] | + + + | Home Phone | | + + + | Preferred Language | Unknown | + + + | Marital Status | Single | + + + | Scientology Affiliation | NRP | + + + | Race | White | + + + | Ethnic Group | Not or | + + + Author + + + | Author | [facility] | + + + | Organization | [facility] | + + + | Address | Unknown | + + + | Phone | Unavailable | + + + Support + + +---------+ + | Name | Relationship | Address | Phone | + + +---------+ + | Irina Trevino | ECON | Unknown | | + + +---------+ + Care Team Providers + +------+ + | Care [employer] Name | Role | Phone | [...] | | | | | Jazlyn [address] [place], | | | | | | [place] [address] | | | | | | [phone] | | | +--------+ + + + [...]
--- OUTSIDE RECORDS SUMMARY | ~2019-03-14 | XMS | Encounter Summary ---
Demographics + + + | Address | [address] | | | [place] [address] | + + + | Home Phone [...] Author + + + | Author | [facility] | + + + | Organization | [facility] | + + + | Address | Unknown | + + + | Phone | Unavailable | + + + Support + + +---------+ + | Name | Relationship | Address | Phone | + + +---------+ + | Irina Tran | ECON | Unknown | | + + +---------+ + Care Team Providers + +------+ + | Care Supervisor Warping Department Name | Role | Phone | + [...] | | | | | Procedures | [address] | [address] | | | | | CONSULT TO | Shailesh Terrazas | Coco | | | | | SPINE | Maria Ines Leach | [facility] [place] | | | | | NEUROSURGERY | [place], [place] | [address] | | | | | | [address] | Phone: | | | | | | Phone: | [phone] | | | | | | [phone] | Fax: | | | | | | Fax: | [phone] | | | | | | [phone] | | + +--------+ + + + [...] + + | 10/31/ | Emergency | [facility] Emergency | Eliseo Liriano | | | 2019 - | | Department [address] | [place], [address] [facility] | | | | | [facility] Arya | [facility] | | | 11/01/ | | [facility] | [place], [place] | | | 2018 | | [place], [place] | [address] | | | | | [address] | [phone] | | | | | [phone] | | | | | | | Shreyas Yo NP | | | | | | [address] | | | | | | [facility] | | | | | | [place], [place] | | | | | | [address] | | | | | | [phone] | | | | | | | | | | | | Sathish Childs, | | | | | | ANP [address] | | | | | | [facility] | | | | | | [place], [place] | | | | | | [address] | | | | | | [phone] | | | | | | | [...] modifie d trauma transfer from outside hospital ([place]). Lisha Mendosa reports taking 25mg dose of hydroxyzine this morning and then [facility]. She had [...] given TDAP, and then transp orted to [facility] via helicopter. Followed by [facility], scheduled for a procedure on 11/07/2018, [...] is now living alone in a town ([place], [place]) where she doesn't know anyone, feel s socially isolated, and feels anxious leaving her home, particularly with driving. She has severe anxiety with driving generally, which is likely why, she states, she took hydroxyzine in order to help her get to the store today." - Shreyas Yo, JIG BORE OPERATOR Interval hx: at 10:35 on 11/01, pt [...] was initiated which included: CT head at [facility] in [place]: "extremely large scalp hematoma along the right parietal region" "streak of subarachnoid hemorrhage, deep to the large scalp hematoma, within the parietal l obe. It measures approximately 25mm transversely, 5mm AP, and 7mm craniocaudally." CT c-spine at [facility] in [place]: "The images demonstrate normal alignment with no [...] Test, a normal Cerebellar Exam, a normal Grlduo-Mmws-Gupypm Test, a normal Heel to Ramos Test, [...] up in outpatient spine clinic Please call [phone] - Strict instructions to return to ED [...] willing to accept help/detox - please contact [facility] ([phone]) and request an assessment in the ED. Best contact is Radha gaviria." # Right hydronephrosis, complication of hysterectomy on 09/14/2018 -Follow up with [facility] as planned in 1-2 weeks -Urinalysis [...] Dear Lisha, Thank you for choosing the [facility] for your healthcare. You we re seen [...] substances. Thank you again for choosing the [facility] for your healthcare. We look forward to serving you again. Sincerely, Sathish Childs, JIG BORE OPERATOR, MPH [facility] Emergency Department If at any point you would like to schedule an appointment to establish with a new primary c are provider, please feel free to call: [facility] Family Medicine clinic: [phone] [facility] Internal Medicine clinic: [phone] [facility] Clinics: [phone] Psychiatric hospital Clinics: [phone] [facility] Medical Information and Referral: [phone] Physical Exam AttachmentsThe following attachments cannot be sent through Care Everywhere.Subarachnoid He morrhage: General Info (Dominican)Lacerations: Zeyad (Dominican)Hydronephrosis: General Info ( Dominican)Fainting (Dominican)Alcohol Use Disorder: General Info (Dominican)chlordiazepoxide (Engl lemuel)Alcohol Withdrawal: General Info (Dominican)documented in this encounter Medications at Time of [...] [facility] | [address] | [place] [address] | | | SERVICES, CORE | PARK [...] | | | LABORATORY | | | URUGUAYAN | | | SERVICES, | | | [...] | + + + + + | [facility] | [address] | [place] [address] | | | SERVICES, [facility] | [address] | | | + [...] | + + + + + | [facility] | [address] | [place] [address] | | | SERVICES, [place] | [address] | | | + + + + + ED INFORMATION EXCHANGE (10/31/2018 4:11 PM PDT) + + | Specimen | + + | | + + + + + | Narrative | Performed At | + + + | [facility]LECT[facility]?NOTIFICATION?10/31/2018 14:45?LISHA MENDOSA?MRN: | [facility] | | [id number] Criteria Met 5 Visits In 12 Months Has | MEDICAL | | Guidelines Security and Safety Date Location Type Specifics | TECHNOLOGIES | | 10/06/18 3:06 PM [facility] Elopement Other | | | Details: PATIENT LEFT AMA. IRIS CREATED. Security Events (18 | | | Mo.) Count Elopement 1 Total 1 ED Care Guidelines from | | | Odilon - Jone Last Updated: 08/26/18 9:42 AM Care | | | Coordination: Currently engaged in mental health services with | | | [facility].? Please contact [facility] with mental health concerns.? | | | Andrey/Prasanna Clements:? [phone]? Shayy:? [phone]. | | | These are guidelines and the provider should exercise clinical | | | judgment when providing care. Care History Medical/Surgical | | | 10/16/18 12:00 AM [facility] PATIENT CAN BE | | | DIRECTED TO A GLOST PLACER THROUGH [facility] IF | | | PATIENT WOULD LIKE SOME OUTPATIENT RESOURCES FOR AandD SERVICES AND OR | | | MENTAL HEALTH HELP. GLOST PLACER WOULD HAVE TO HAVE AN | | | AUTHORIZATION BEFORE SERVICES rendered- [phone] IS BEST CONTACT | | | NUMBER. 07/08/18 12:00 AM [facility] | | | PATIENT HAS AN APT WITH DR JEROME ON 10/15/18. Patient is | | | currently established with [facility]. If patient is seen in | | | the ED during business hours. Please contact CHWs at [facility] | | | Clinic. Care Recommendation: [...] care. 05/06/18 12:00 AM | | | [facility] CHW CALLED PATIENT- PATIENT | | | VOICEMAIL BOX IS FULL CAN'T LEAVE A MESSAGE FOR A CALL BACK- IF | | | PATIENT IS WILLING TO ACCEPT HELP/DETOX- PLEASE CONTACT [facility] | | | SERVICES [phone] AND REQUEST AN ASSESSMENT IN THE ED. BEST | | | CONTACT IS RADHA WORLEY. Prescription Drug Report | | | (12 Mo.) Unable to determine if a PDMP report exists, because an | | | error response was received from PDMP. E.D. Visit Count (12 | | | mo.) Facility Visits [facility] [address] [facility] | | | [facility] 14 Total 15 Note: Visits indicate total known | | | visits. Recent Emergency Department Visit Summary Showing 10 | | | most recent visits out of 15 in the past 12 months Date Facility City | | | State Type Diagnoses or Chief Complaint Oct 31, 2018 [facility] | | | [facility] [place] Emergency 10,151. traumatic | | | sub dural 18,400. Fall on same level, unspecified, initial | | | encounter 18,400. Nontraumatic subarachnoid hemorrhage, | | | unspecified Oct 31, [address] [facility] [place] Emergency | | | Chief Complaint: POSS SEIZURE/HEAD INJURY Oct 15, 2018 [facility]. | | | [place] Emergency Major depressive disorder, | | | single episode, unspecified Nicotine dependence, unspecified, | | | uncomplicated Other detention (current) drug therapy | | | Post-traumatic stress disorder, unspecified Alcohol abuse with | | | intoxication, unspecified Allergy status to penicillin | | | Anxiety disorder, unspecified Blood alcohol level of 240 mg/100 | | | ml or more Oct 06, [address] [facility] 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 [place] Emergency Other | | | chronic pain Alcohol abuse, uncomplicated Anxiety | | | disorder, unspecified Major depressive disorder, single episode, | | | unspecified Pelvic and perineal pain Other detention | | | (current) drug therapy Allergy status to penicillin | | | Acquired absence of both cervix and uterus Nicotine dependence, | | | unspecified, uncomplicated Oct 03, [address] [facility] [place] | | | [place] Emergency Allergy status to penicillin Major | | | depressive disorder, single episode, unspecified Abnormal | | | uterine and vaginal bleeding, unspecified Other acute | | | postprocedural pain Anxiety disorder, unspecified Urinary | | | tract infection, site not specified Other terminal superintendent (current) | | | drug therapy Polyneuropathy, unspecified Postprocedural | | | hemorrhage of a genitourinary system organ or structure following a | | | genitourinary system procedure Nicotine dependence, unspecified, | | | uncomplicated Oct 01, [address] [facility] [address] [place] Emergency | | | Low back pain Other detention (current) drug therapy | | | Urinary tract infection, site not specified Major depressive | | | disorder, single episode, unspecified Other acute postprocedural | | | pain Anxiety disorder, unspecified Nicotine dependence, | | | unspecified, uncomplicated Alcohol abuse with intoxication, | | | unspecified Allergy status to penicillin Unspecified | | | abdominal pain September 23, [address] [facility] [place] [place] | | | Emergency Chief Complaint: POST OP PROB/ABD PAIN August 28, 2018 | | | [facility] [place] [place] Emergency Blood alcohol level of | | | 240 mg/100 ml or more Alcohol abuse with intoxication, | | | unspecified Suicidal ideations Nicotine dependence, | | | unspecified, uncomplicated Major depressive disorder, single | | | episode, unspecified Post-traumatic stress disorder, unspecified | | | Other terminal superintendent (current) drug therapy Anxiety disorder, | | | unspecified Allergy status to penicillin Aug 25, 2018 [facility] | | | [place] Emergency Nicotine dependence, | | | unspecified, uncomplicated Contusion of other part of head, | | | initial encounter Alcohol abuse with intoxication, unspecified | | | Allergy status to penicillin Anxiety disorder, unspecified | | | Other detention (current) drug therapy Headache | | | [...] Dates ANNY JEROME, | | | [facility] Jul 08, 2018 - | | | Current [employer] Portal This patient has registered at the | | | [facility] Emergency Department For more | | | information visit: | | | [email or web address] | | | [email or web address] PLEASE NOTE: 1. [...] or completeness of information provided. ? 2019 [employer] | | | HEROZ. - [email or web address] | | + + + + + [...] 1 Total 1 ED [facility] | | Updated: 08/26/18 9:42 AM Care Coordination:Currently engaged in mental health services | | with [facility].? Please contact [facility] with mental health concerns.? Andrey/Prasanna | | Tyree:? [phone]? Shayy:? [phone].These are guidelines and the provider | | should exercise clinical judgment when providing care.Care | | HistoryMedical/Surgical10/16/18 12:00 AM [facility] PATIENT CAN BE | | DIRECTED TO A GLOST PLACER THROUGH [facility] IF PATIENT WOULD LIKE SOME | | OUTPATIENT RESOURCES FOR AandD SERVICES AND OR MENTAL HEALTH HELP. GLOST PLACER WOULD | | HAVE TO HAVE AN AUTHORIZATION BEFORE SERVICES rendered- [phone] IS BEST CONTACT | | NUMBER.07/08/18 12:00 AM [facility] PATIENT HAS AN APT WITH DR JEROME ON | | 10/15/18. Patient is currently established with [facility]. If patient is seen | | in the ED during business hours. Please contact CHWs at [facility].Care | | Recommendation:This patient has had 5 [...] when | | providing care.05/06/18 12:00 AM [facility] CHW CALLED PATIENT- PATIENT | | VOICEMAIL BOX IS FULL CAN'T LEAVE A MESSAGE FOR A CALL BACK- IF PATIENT IS WILLING TO | | ACCEPT HELP/DETOX- [facility] [phone] AND REQUEST AN | | ASSESSMENT IN THE ED. BEST CONTACT IS RADHA WORLEY.Prescription Drug Report (12 | | Mo.)Unable to determine if a PDMP report exists, because an error response was received | | from PDMP.E.D. Visit Count (12 mo.)Facility Visits [facility] | | 1 [facility] 14 Total 15 Note: Visits indicate total known visits. Recent | | Emergency Department Visit SummaryShowing 10 most recent visits out of 15 in the past | | 12 monthsDate Facility City State Type Diagnoses or Chief Complaint Oct 31, 2018 [place] | | [facility]. [place] Emergency 10,151. traumatic sub dural | | 18,400. Fall on same level, unspecified, initial encounter 18,400. Nontraumatic | | subarachnoid hemorrhage, unspecified Oct 31, [address] [facility] [place] Emergency | | Chief Complaint: POSS SEIZURE/HEAD INJURY Oct 15, [address] [facility] [place] | | Emergency Major depressive disorder, single episode, unspecified Nicotine | | dependence, unspecified, uncomplicated Other terminal superintendent (current) drug therapy | | Post-traumatic stress disorder, unspecified Alcohol abuse with intoxication, | | unspecified Allergy status to penicillin Anxiety disorder, unspecified Blood | | alcohol level of 240 mg/100 ml or more Oct 06, [address] [facility] [place] | | Emergency Anxiety disorder, unspecified Acquired absence of both cervix and uterus | | Pelvic and perineal pain Allergy status to penicillin Unspecified | | hydronephrosis Major depressive disorder, single episode, unspecified Other long | | term (current) 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 Nicotine dependence, unspecified, uncomplicated | | Alcohol dependence, uncomplicated Polyneuropathy, unspecified Oct 05, [address] [facility] | | [place] Emergency Other chronic pain Alcohol abuse, uncomplicated | | Anxiety disorder, unspecified Major depressive disorder, single episode, unspecified | | Pelvic and perineal pain Other detention (current) drug therapy Allergy status | | to penicillin Acquired absence of both cervix and uterus Nicotine dependence, | | unspecified, uncomplicated Oct 03, [address] [facility] [place] Emergency | | Allergy status to penicillin Major depressive disorder, single episode, unspecified | | Abnormal uterine and vaginal bleeding, unspecified Other acute postprocedural pain | | Anxiety disorder, unspecified Urinary tract infection, site not specified Other | | detention (current) drug therapy Polyneuropathy, unspecified Postprocedural | | hemorrhage of a genitourinary system organ or structure following a genitourinary system | | procedure Nicotine dependence, unspecified, uncomplicated Oct 01, [address] [facility] | | [place] Emergency Low back pain Other terminal superintendent (current) drug | | therapy Urinary tract infection, site not specified Major depressive disorder, | | single episode, unspecified Other acute postprocedural pain Anxiety disorder, | | unspecified Nicotine dependence, unspecified, uncomplicated Alcohol abuse with | | intoxication, unspecified Allergy status to penicillin Unspecified abdominal pain | | September 23, [address] [facility] [place] Emergency Chief Complaint: POST OP PROB/ABD | | PAIN August 28, 2018 [facility] [place] Emergency Blood alcohol level of 240 | | mg/100 ml or more Alcohol abuse with intoxication, unspecified Suicidal ideations | | Nicotine dependence, unspecified, uncomplicated Major depressive disorder, single | | episode, unspecified Post-traumatic stress disorder, unspecified Other terminal superintendent | | (current) drug therapy Anxiety disorder, unspecified Allergy status to penicillin | | Aug 25, [address] [facility] [place] Emergency Nicotine dependence, | | unspecified, uncomplicated Contusion of other part of head, initial encounter | | Alcohol abuse with intoxication, unspecified Allergy status to penicillin Anxiety | | disorder, unspecified Other detention (current) drug therapy Headache Major | | depressive disorder, single episode, unspecified Post-traumatic stress disorder, | | unspecified Polyneuropathy, unspecified Recent Inpatient Visit SummaryDate Facility | | [facility] State Type Diagnoses or Chief Complaint September 23, [address] [facility] [place] | | Critical Care [...] | | Unspecified abdominal pain Care TeamProvider [facility] Type Phone Fax Service Dates [facility], | | Malathi MCCORMICK. Family Medicine Jul 08, 2018 - Current | | [facility] PortalThis patient has registered at the [facility] | | Emergency Department For more information visit: | | [email or web address] PLEASE | | NOTE: 1. Any care [...] completeness of information | | provided.? 2019 [employer] - [email or web address] | |Oct 05, [address] [facility] [place] Emergency | | Other chronic pain | | Alcohol abuse, uncomplicated | | Anxiety disorder, unspecified | | Major depressive disorder, single episode, unspecified | | Pelvic and perineal pain | | Other terminal superintendent (current) drug therapy | | Allergy status to penicillin | | Acquired absence of both cervix and uterus | | Nicotine dependence, unspecified, uncomplicated | | | |Oct 03, [address] [facility] [place] Emergency | | Allergy status to penicillin | | Major depressive disorder, single episode, unspecified | | Abnormal uterine and vaginal bleeding, unspecified | | Other acute postprocedural pain | | Anxiety disorder, unspecified | | Urinary tract infection, site not specified | | Other detention (current) drug therapy | | Polyneuropathy, unspecified | | Postprocedural hemorrhage of a genitourinary system organ or structure following a genit ourinary system procedure | | Nicotine dependence, unspecified, uncomplicated | | | |Oct 01, 2018 [facility] [place] Emergency | | Low back pain | | Other detention (current) drug therapy | | Urinary tract infection, site not specified | | Major depressive disorder, single episode, unspecified | | Other acute postprocedural pain | | Anxiety disorder, unspecified | | Nicotine dependence, unspecified, uncomplicated | | Alcohol abuse with intoxication, unspecified | | Allergy status to penicillin | | Unspecified abdominal pain | | | |September 23, [address] [facility] [place] Emergency Chief Complaint: POST OP PROB/ABD PAIN | |August 28, 2018 [facility] | | Blood alcohol level of 240 mg/100 ml or more | | Alcohol abuse with intoxication, unspecified | | Suicidal ideations | | Nicotine dependence, unspecified, uncomplicated | | Major depressive disorder, single episode, unspecified | | Post-traumatic stress disorder, unspecified | | Other detention (current) drug therapy | | Anxiety disorder, unspecified | | Allergy status to penicillin | | | |Aug 25, 2018 [facility] | | Nicotine dependence, unspecified, uncomplicated | | Contusion of other part of head, initial encounter | | Alcohol abuse with intoxication, unspecified | | Allergy status to penicillin | | Anxiety disorder, unspecified | | Other terminal superintendent (current) drug therapy | | Headache | | Major depressive disorder, single episode, unspecified | | Post-traumatic stress disorder, unspecified | | Polyneuropathy, unspecified | | | | | | | |Recent Inpatient Visit Summary | |Date Facility City State Type Diagnoses or Chief Complaint | |September 23, 2018 [facility] [place] Critical Care | | [...] 08, 2018 - Current | | | |[employer] Portal | |This patient has registered at the [facility] [place] [facility] t | |For more information visit: [email or web address] | |PLEASE NOTE: | | 1. Any care recommendations and other clinical information are provided as guidelines or for historical purposes only, and providers should exercise their own clinical judgment whe n providing care. | | 2. You may only use this information for purposes of treatment, payment or health care o perations activities, and subject to the limitations of applicable Auditude Policies. | | 3. You should consult directly with the organization that provided a care guideline or o ther clinical history with any questions about additional information or accuracy or complet eness of information provided. | | | |? 2019 [employer]. - [email or web address] | + + + + + + + | Performing | Address | City/State/Zipcode | Phone Number | | Organization | | | | + + + + + | [facility] | [address], | [place], [place] | [phone] | | [employer] | [address] | [address] | | + + + + + [...] JAEGER | [address] | [place], [place] | | | [place] [facility] | [address] | [address] | | | TESTS | | | [...] | + + + + + | [facility] | [address] | [place] [address] | | | GERALD SCHULTZ | MARIA [...] | + + + + + | [email or web address] | [address] | [place] [address] | | | GERALD SCHULTZ | MARIA [...] | + + + + + | [facility] | [address] | [place] [address] | | | SERVICES, CORE | MARIA [...] | + + + + + | [email or web address] | [address] | [place] [address] | | | SERVICES, | [address] [...] [facility] | [address] | [place] [address] | | | SERVICES, CORE | [address] [...] | + + + + + | [facility] | [address] | [place] [address] | | | SERVICES, CORE | MARIA [...] [facility] | [address] | [place] [address] | | | SERVICES, CORE | PARK [...] 5:11 | | | | | dose, [facility] 10/31/18 at 1715 | | PM [...] | | | | | 1 dose, [facility] 11/01/18 at 1045 | | AM PDT | | | | + +-------+ +-------+---+---+ +---+---+ | | | +---+---+ + +-------+ +------+---+---+ | folic acid (FOLVITE) tablet 1 | Given | 11/02/19 | 1 mg | | | | mg 1 mg, oral, DAILY, 3 doses, | | 19 8:20 | | | | | [facility] on [facility] [facility] 10/31/18 at 1800, | | AM PDT | | | | | Last dose on [facility] 11/02/18 at 0900 | | | [...] DAILY, First dose on | | | [facility] 10/31/18 at 2100, Until | | [...] PDT | | | | | on [facility] 11/02/18 at 0900 | | | | | | + +-------+ +--------+---+---+ +-------+ +--------+---+---+ | Given | 11/01/19 | 100 mg | | | | | 19 8:03 | | | | | | PM PDT | | | | +-------+ +--------+---+---+ +---+---+ | | | +---+---+ documented in this encounter
--- OUTSIDE RECORDS SUMMARY | ~2019-03-14 | XMS | Clinical Summary ---
Demographics + + + | Address | [address] | | | [place] [address] | + + + | Home Phone | | + + + | Preferred Language | Unknown | + + + | Marital Status | Single | + + + | Scientologist Affiliation | NRP | + + + [...] Team Providers + +------+ + | Care Accounting System Expert Name | Role | Phone | + +------+ + | Anibal Ferrara MD | PCP | | + +------+ + Source Comments JENNIFER is fully live on both [facility] and [facility] InPatient.[facility] Allergies + + + + + + [...] PLUS | | karen | 6 | [id number] | id | | | OPEN | | for | | [place], [place] | | | | CARD | | all | | [id number] | | | | | | dates [...] | [birth year] | | [address] [employer] | | | al/Fam | | 1980 | [phone] | [place] [address] | | | alejandro | | | [...]
--- OUTSIDE RECORDS SUMMARY | ~2019-03-14 | XMS | Encounter Summary ---
Demographics + + + | Address | [address] | | | [place] [address] | + + + | Home Phone | | + + + | Preferred Language | Unknown | + + + | Marital Status | Single | + + + | Pentecostal Affiliation | NRP | + + + [...] Team Providers + +------+ + | Care Brush Cutter Name | Role | Phone | + [...]
--- OUTSIDE RECORDS SUMMARY | ~2019-03-14 | XMS | Clinical Summary ---
Demographics + + + | Address | [address] | | | [place] [address] | + + + | Home Phone [...] Team Providers + +------+ + | Care Windlace Machine Operator Name | Role | Phone | + +------+ + | Anibal Ferrara MD | PCP | | + +------+ + Source Comments JENNIFER is fully live on both [facility] and [facility] InPatient.[facility] & [facility] Allergies + + + + + + [...] PLUS | | karen | 6 | [phone] | id | | | OPEN | | for | | [place], [place] | | | | CARD | | all | | [phone] | | | | | | dates [...] | [birth year] | | [address] ENDOSCOPY RN | | | al/Fam | | 1980 | [phone] | [place] [address] | | | alejandro | | | [...]
[~2019-03-14 11:11] MED LIST changes: +ATIVAN2 MG PO
--- OUTSIDE RECORDS SUMMARY | 2019-03-14 11:14 | XMS ---
PreManage Notification: LISHA ESCALONA Security Life Science Technician Events 1 event(s) in the past 18 months Most recent security events: Elopement at [facility] 10/06/2018 15:06 - Other Details: PATIENT LEFT AMA. BONILLA CREATED. CRITERIA MET - Group Notification - 6 ED Visits in 6 Months - [facility] - Has Care Guidelines - PDMP - [facility] - 2 Visits in 30 Days CARE PROVIDERS ANNY JEROME [facility] 07/08/2018-Current PHONE: [phone] [facility] Unknown FABRIZIO MONREAL [facility] PHONE: Unknown Guidelines Source: [facility] Guidelines Date: 08/26/2018 Care Coordination: Currently engaged in mental health services with [facility].\T\nbsp; Please contact [facility] with mental health concerns.\T\nbsp; [place]/Prasanna Clements: \T\nbsp; [phone]\T\nbsp; Shayy:\T\nbsp; [phone]. Care History Medical/Surgical 03/13/2019 [facility] - PLEASE CONTACT [facility]- IF PATIENT ACCEPTS SERVICES- . - [facility] CAN PROVIDE PATIENT WITH CERTIFIED MASTER SAFE TECHNICIAN AND HELP WITH COMMUNITY RESOURCES. 01/06/2019 [facility] - PATIENT HAS AN APT TO ESTABLISH CARE WITH DR BAUTISTA ON 02/16/19. 10/16/2018 [facility] - PATIENT CAN BE DIRECTED TO A CARBON COATER MACHINE OPERATOR THROUGH [facility] IF PATIENT WOULD LIKE SOME OUTPATIENT RESOURCES FOR A\T\amp;D SERVICES AND OR MENTAL HEALTH HELP. - CARBON COATER MACHINE OPERATOR WOULD HAVE TO HAVE AN AUTHORIZATION BEFORE SERVICES RENDERED- [phone] IS BEST CONTACT NUMBER. E.D. VISIT COUNT (12 MO.) 1 [facility] 18 [facility]. TOTAL 19 NOTE: Visits indicate total known visits. ED/UCC VISIT TRACKING (12 MO.) 03/14/2019 11:12 [facility] [place] TYPE: Emergency COMPLAINT: - ALCOHOL WITHDRAWAL 03/12/2019 02:59 [facility] [place] TYPE: Emergency COMPLAINT: - MEDICAL CLEARANCE 01/06/2019 03:03 [facility] [place] TYPE: Emergency COMPLAINT: - FLANK PAIN DIAGNOSES: - Nicotine dependence, unspecified, uncomplicated - Unspecified abdominal pain - Allergy status to penicillin - Other terminal makeup operator (current) 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 - Anxiety disorder, unspecified - Major depressive disorder, single episode, unspecified 11/19/2018 23:50 [facility] [place] TYPE: Emergency COMPLAINT: - HEAD PAIN/ NO INJURY DIAGNOSES: - Allergy status to penicillin - Anxiety disorder, unspecified - Headache - Nicotine dependence, unspecified, uncomplicated - Major depressive disorder, single episode, unspecified - Other half-way (current) 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 11/01/2018 19:48 [facility] TYPE: Emergency COMPLAINT: - MEDICAL CLEARANCE DIAGNOSES: - Other terminal makeup operator (current) 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 - Nicotine dependence, unspecified, uncomplicated - Restlessness and agitation - Acquired absence of both cervix and uterus - Traum subrac hem w/o loss of consciousness, subs - Major depressive disorder, single episode, unspecified - Alcohol abuse with intoxication, unspecified - Anxiety disorder, unspecified 10/31/2018 14:45 [facility] TYPE: Emergency DIAGNOSES: 73019. traumatic sub dural 19417. Fall on same level, unspecified, initial encounter 31189. Nontraumatic subarachnoid hemorrhage, unspecified 10/31/2018 11:08 [facility] [place] TYPE: Emergency COMPLAINT: - POSS SEIZURE/HEAD INJURY DIAGNOSES: - Headache - Acquired absence of both cervix and uterus - Major depressive disorder, single episode, unspecified - Anxiety disorder, unspecified - Allergy status to penicillin - Traum subrac hem w/o loss of consciousness, init - Other half-way (current) 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 - Nicotine dependence, unspecified, uncomplicated - Fall on same level, unspecified, initial encounter - Laceration without foreign body of scalp, initial encounter - Syncope and collapse 10/15/2018 14:21 [facility] [place] TYPE: Emergency COMPLAINT: - MEDICAL CLEARANCE DIAGNOSES: - Nicotine dependence, unspecified, uncomplicated - Other terminal makeup operator (current) 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 - Major depressive [...] disorder, single episode, unspecified - Other terminal makeup operator (current) 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 - Nicotine dependence, unspecified, uncomplicated - Alcohol dependence, uncomplicated - Polyneuropathy, unspecified 10/05/2018 18:51 [facility] [place] TYPE: Emergency COMPLAINT: - BACK PAIN/POST OP PROBLEM DIAGNOSES: - Other chronic pain - Alcohol abuse, uncomplicated - Anxiety disorder, unspecified - Major depressive disorder, single episode, unspecified - Pelvic and perineal pain - Other half-way (current) 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 - Allergy status to [...] tract infection, site not specified - Other half-way (current) 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 - Polyneuropathy, unspecified - Postproc hemor of a sys org following 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 - Acquired absence of both cervix and uterus - Nicotine dependence, unspecified, uncomplicated 10/01/2018 18:52 [facility] [place] TYPE: Emergency COMPLAINT: - BACK PAIN/NON INJURY DIAGNOSES: - Other half-way (current) 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 - Urinary tract infection, [...] - Post-traumatic stress disorder, unspecified - Other half-way (current) 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 - Blood alcohol level [...] penicillin - Anxiety disorder, unspecified - Other half-way (current) 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 - Headache - Major [...] more - Anxiety disorder, unspecified - Other terminal makeup operator (current) 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 07/05/2018 04:09 [facility] [place] TYPE: Emergency COMPLAINT: - MEDICAL CLEARANCE DIAGNOSES: - Allergy status to penicillin - Blood alcohol level of 240 mg/100 ml or more - Suicidal ideations - Nicotine dependence, unspecified, uncomplicated - Post-traumatic stress disorder, unspecified - Other half-way (current) 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 - Alcohol abuse with intoxication, unspecified - Polyneuropathy, unspecified - Anxiety disorder, unspecified 05/04/2018 19:24 [facility] [place] TYPE: Emergency COMPLAINT: - INTOXICATION DIAGNOSES: - Allergy status to penicillin - Alcohol dependence with intoxication, unspecified - Post-traumatic stress disorder, unspecified - Anxiety disorder, unspecified - Other terminal makeup operator (current) 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 - Polyneuropathy, unspecified [...] - Nicotine dependence, unspecified, uncomplicated - Other half-way (current) 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 INPATIENT VISIT TRACKING (12 [...] - Diarrhea, unspecified - Dehydration - Other half-way (current) 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 - Post-traumatic stress disorder, unspecified [email or web address]
[2019-03-14] MEDS ORDERED: LIBRAX CAPSULE1 EACH PO (11:50)
[2019-03-14] MEDS ORDERED: NICODERM CQ1 EAC1 TD (11:53)
== END 2019-03-14 12:15 | disposition home or self-care (01) ==
LOC: ED 11:11
DX: F10.239 Alcohol dependence with withdrawal, unspecified (principal); F41.9 Anxiety disorder, unspecified; F32.9 Major depressive disorder, single episode, unspecified; F17.200 Nicotine dependence, unspecified, uncomplicated; Z88.0 Allergy status to penicillin; Z79.899 Other long term (current) 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
CPT/HCPCS: 99284